=== PATIENT | female | born 1955 | race Caucasian/White ===

== ENCOUNTER 2020-08-03 11:16 | Outpatient (REF) | payer OTHER, MEDICARE, SELFPAY ==
--- NOTE | ~2020-08-03 | MM_ITS ---
EXAMINATION: MM SCREENING DIGITAL BREAST TOMOSYNTHESIS, BILATERAL CLINICAL INFORMATION: Screening. Asymptomatic. The lifetime risk of breast cancer based on the Tyrer-Cuzick Model is 7.1%. COMPARISON: Mammography: March 25, 2019 and studies dating back to June 04, 2011 TECHNIQUE: Digital breast tomosynthesis is performed in both the craniocaudal and mediolateral oblique views along with computer-aided detection (CAD). Synthesized 2D images are generated from the tomosynthesis. FINDINGS: The breasts are almost entirely fatty (ACR BI-RADS breast composition Category a). There are no significant masses, abnormal calcifications, or other abnormalities. MM/MM tomosynthesis screening BI IMPRESSION: There are no significant changes from prior study. ASSESSMENT: BI-RADS 1: Negative RECOMMENDATION: Routine annual mammography screening. This patient's information was entered into a reminder system with a target due date for their next mammogram.
== END 2020-08-03 11:17 | disposition home or self-care (01) ==
LOC: HO.MAMMO 11:16
PROVIDERS: Visit Provider Hospitalist
DX: Z12.31 Encounter for screening mammogram for malignant neoplasm of breast (principal)
CPT/HCPCS: 77063; 77067

== ENCOUNTER 2022-07-10 10:26 | Outpatient (REF) | payer MEDICARE, SELFPAY ==
[2022-07-10 11:37] LABS: Hematocrit 40.9 % (37.0-47.0); Hemoglobin 13.3 g/dl (12.0-16.0); Mean Corpuscular HGB Conc 32.5 g/dl (31.0-35.0); Mean Corpuscular Hemoglobin 31.8 pg (27.0-33.0); Mean Corpuscular Volume 97.8 fL (80.0-98.0); Mean Platelet Volume 10.1 fL (9.4-12.3); Platelet Count 232 X10*3/uL (160-400); Red Blood Count 4.18 X10*6/uL (4.20-5.50); Red Cell Distribution Width 13.8 % (11.0-16.0); White Blood Count 6.3 X10*3/uL (4.8-10.8)
[2022-07-10 12:10] LABS: Alanine Aminotransferase 18 U/L (0-31); Albumin Level 4.1 g/dL (3.5-5.0); Alkaline Phosphatase 125 U/L (39-117); Anion Gap 14 (12-20); Aspartate Amino Transferase 17 U/L (5-31); Bilirubin Total 0.5 mg/dL (0.0-1.0); Blood Urea Nitrogen 12 mg/dL (9-16); Calcium 9.4 mg/dL (8.4-10.2); Carbon Dioxide 27 mmol/L (22-29); Chloride 108 mmol/L (96-108); Cholesterol 245 mg/dL; Estimated Glomerular Filt Rate > 60; Glucose Fasting 112 mg/dL (60-99); HDL Cholesterol 68 mg/dL; LDL Cholesterol Calculated 159 mg/dl; Potassium 4.4 mmol/L (3.3-5.1); Sodium 145 mmol/L (135-145); Total Protein 6.7 g/dL (6.5-8.0); Triglycerides 92 mg/dL
[2022-07-10 12:26] LABS: TSH reflex Free T4 2.02 uIU/mL (0.32-4.0)
[2022-07-10 12:42] LABS: Appearance Urine Clear; Color Urine Yellow; Glucose Urine UA Negative (Negative); Leukocyte Esterase Urine Trace (Negative); Nitrite Urine Negative (Negative); Specific Gravity - Urine 1.015 (1.005-1.025); UMIC TRIGGER UA YES; Urine Blood Negative (Negative); Urine Ketones Negative (Negative); Urine Protein Negative (Neg-Trace)
[2022-07-10 12:45] LABS: Bacteria Urine Trace (None Seen); Hyaline Casts Urine 0-2 /LPF (0-2); RBC Urine 0-2 /HPF (0-2); WBC Urine 0-5 /HPF (0-5)
== END 2022-07-10 10:27 | disposition home or self-care (01) ==
LOC: HO.LAB 10:26
PROVIDERS: PCP Hospitalist; Visit Provider Hospitalist
DX: Z00.00 Encounter for general adult medical examination without abnormal findings (principal)
CPT/HCPCS: 36415; 80053; 80061; 81001; 84443; 85027

== ENCOUNTER → 2022-07-26 09:49 | Outpatient (BNVA) | payer MEDICARE, SELFPAY | PROVIDERS: PCP Hospitalist; Visit Provider Physician Assistant | DX: Z12.11 Encounter for screening for malignant neoplasm of colon (principal) | CPT/HCPCS: 99202 ==

== ENCOUNTER 2022-07-27 10:45 | Outpatient (REF) | payer MEDICARE, SELFPAY ==
--- NOTE | 2022-07-27 11:00 | PFT_ITS ---
Forced vital capacity 70%, FEV1 74%, FEV1/FVC ratio is 80. DVT00-47 73% and MVV is 72%. Post bronchodilator therapy, there is a significant improvement in FEV1 and ANJ17-66. Total lung capacity 80%. Residual volume 82%. Diffusion capacity 65%. There is evidence of mild obstructive airway disorder. There is an excellent response to bronchodilator therapy with complete reversibility. These findings are consistent with bronchial asthma. Clinical correlation is recommended. Star Cleary MD MSB/MODL / [phone]
== END 2022-07-27 10:46 | disposition home or self-care (01) ==
LOC: HO.RESP 10:45
PROVIDERS: PCP Hospitalist; Visit Provider Hospitalist
DX: J45.20 Mild intermittent asthma, uncomplicated (principal)
CPT/HCPCS: 94060; 94727; 94729

== ENCOUNTER 2022-07-31 12:11 | Outpatient (REF) | payer MEDICARE, SELFPAY ==
--- NOTE | ~2022-07-31 | MM_ITS ---
EXAMINATION: MM SCREENING DIGITAL BREAST TOMOSYNTHESIS, BILATERAL CLINICAL INFORMATION: Screening. Asymptomatic. The lifetime risk of breast cancer based on the Tyrer-Cuzick Model is 5%. COMPARISON: Mammography: 08/03/2020, 03/25/2019, outside mammography 01/01/2015 ([place], [place]). TECHNIQUE: Digital breast tomosynthesis is performed in both the craniocaudal and mediolateral oblique views along with computer-aided detection (CAD). Synthesized 2D images are generated from the tomosynthesis. FINDINGS: The breasts are almost entirely fatty (ACR BI-RADS breast composition Category a). Background stromal and fibroglandular densities are similar to prior studies and there is no significant mass or developing density or architectural abnormality. Again, there are scattered bilateral isolated and grouped benign calcifications including benign dermal calcifications. There is a biopsy clip marker again noted posterior 3:00 left breast. The axilla are unremarkable. No significant changes. MM/MM tomosynthesis screening BI IMPRESSION: No mammographic evidence of malignancy. ASSESSMENT: BI-RADS 2: Benign RECOMMENDATION: Routine annual mammography screening. This patient's information was entered into a reminder system with a target due date for their next mammogram.
== END 2022-07-31 12:12 | disposition home or self-care (01) ==
LOC: HO.MAMMO 12:11
PROVIDERS: PCP Hospitalist; Visit Provider Hospitalist
DX: Z12.31 Encounter for screening mammogram for malignant neoplasm of breast (principal)
CPT/HCPCS: 77063; 77067

== ENCOUNTER 2023-01-29 09:01 | Day surgery (SDC) | payer MEDICARE, SELFPAY ==
[2023-01-24 10:21] VITALS: BMI 41.4
--- NOTE | 2023-01-25 13:08 | P.CONAN_ITS ---
Documented by User: Huong Rosa NP 01/25/23 13:09 HPI - Anesthesia Eval Consult details Narrative: 67yo F for Upper Endoscopy and Colonoscopy [facility] Active Problems Active Problems: All Active Problems (Updated 01/24/23 @ 10:20 by Livier Chavira RN) Anxiety and depression (Acute) Asthma, mild intermittent, well-controlled (Acute) Lichen sclerosus et atrophicus of the vulva (Acute) Hx of gout (Acute) Osteoarthritis involving multiple joints on both sides of body (Acute) Normal physical exam (Acute) Colon cancer screening (Acute) Past Medical History Medical History Anxiety and depression Asthma Diet-controlled type 2 diabetes mellitus Gout Osteoarthritis Family History Family History Father Hypertension Colon cancer Prostate cancer Mother No problems noted. Sister Breast cancer Other Mental health disorder Surgical History Surgical History History of cholecystectomy History of gastric surgery History of knee replacement procedure of left knee History of knee replacement procedure of right knee Hx of colonoscopy Social History Social History Household Members Other:: Housing: House Alcohol intake: current Alcohol intake frequency: a few times a month Alcohol type: wine Patient Tobacco Use Status: Former Tobacco user e-Cigarette/Vaping Use: Never Used Second Hand Smoke Exposure: No Are you DNR?: No Advance Directives: No Advance Directives Information Provided: Yes Nutrition Risks: No Nutritional Risk service: No 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: No Hearing needs: No Vision needs: Yes (Glasse) Meds Allergies Allergy/AdvReac Type Severity Reaction Status Date / Time amoxicillin [From AUGMENTIN] Allergy Intermediate HIVES Verified 07/26/22 09:59 cefazolin [From Ancef] Allergy Intermediate SOB Verified 07/26/22 09:59 Wheezing clavulanic acid Allergy Intermediate HIVES Verified 07/26/22 09:59 [From AUGMENTIN] vancomycin Allergy Intermediate SOB, Verified 07/26/22 09:59 wheezing Home Medications Medication Instructions Recorded Confirmed Last Taken Type cetirizine 10 mg tablet 10 mg PO DAILY 07/26/22 01/24/23 Unknown History Exam Exam Date and Time: January 25, 2023 1308 Height,Weight and Vital Signs: Height 5 ft 5 in Weight 112.945 kg Pertinent Lab Results Pertinent Lab Results: Laboratory Tests 07/10/22 07/10/22 10:40 10:40 WBC 6.3 Hgb 13.3 Hct 40.9 Plt Count 232 Sodium 145 Potassium 4.4 Chloride 108 Carbon Dioxide 27 BUN 12 Creatinine 0.80 Assessment and Plan Assessment Anesthesia Assessment: Chart Reviewed Documented by User: Ronda Hensley MD 01/29/23 10:15 PMFSH Active Problems Active Problems: All Active Problems (Updated 01/29/23 @ 10:05 by Ronda Hensley MD) Anxiety and depression (Acute) Asthma, mild intermittent, well-controlled (Acute) Lichen sclerosus et atrophicus of the vulva (Acute) Hx of gout (Acute) Osteoarthritis involving multiple joints on both sides of body (Acute) Normal physical exam (Acute) Colon cancer screening (Acute) Morbid Obesity BMI 41.4 Past Medical History Medical History Anxiety and depression Asthma Diet-controlled type 2 diabetes mellitus Gout Osteoarthritis Family History Family History Father Hypertension Colon cancer Prostate cancer Mother No problems noted. Sister Breast cancer Other Mental health disorder Family history of problems with anesthesia: No Surgical History Surgical History History of cholecystectomy History of gastric surgery History of knee replacement procedure of left knee History of knee replacement procedure of right knee Hx of colonoscopy History of Problems with Anesthesia: No Social History Social History Household Members Other:: Housing: House Alcohol intake: current Alcohol intake frequency: a few times a month Alcohol type: wine Patient Tobacco Use Status: Former Tobacco user e-Cigarette/Vaping Use: Never Used Second Hand Smoke Exposure: No Are you DNR?: No Advance Directives: No Advance Directives Information Provided: Yes Nutrition Risks: No Nutritional Risk service: No 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: No Hearing needs: No Vision needs: Yes (Glasse) Meds Allergies Allergy/AdvReac Type Severity Reaction Status Date / Time amoxicillin [From AUGMENTIN] Allergy Intermediate HIVES Verified 07/26/22 09:59 cefazolin [From Ancef] Allergy Intermediate SOB Verified 07/26/22 09:59 Wheezing clavulanic acid Allergy Intermediate HIVES Verified 07/26/22 09:59 [From AUGMENTIN] vancomycin Allergy Intermediate SOB, Verified 07/26/22 09:59 wheezing Home Medications Medication Instructions Recorded Confirmed Last Taken Type cetirizine 10 mg tablet 10 mg PO DAILY 07/26/22 01/24/23 Unknown History Exam Height,Weight and Vital Signs: Height 5 ft 5 in Weight 112.945 kg Vital Signs Temp Pulse Resp BP Pulse Ox O2 Del Method 01/29/23 09:28 160/52 H 01/29/23 09:17 97 F 66 18 97 Room Air Airway Mallampati Class: II TM Dist: >3cm Neck ROM: Full Loose/Missing/Broken Teeth: No (Permanent bridge intact. Denies broken, loose, missing teeth) Heart: RRR Lungs: CTAB Assessment and Plan Assessment Anesthesia Assessment: Anesthesia Plan Discussed Final Anesthetic Review Family History of Problems with Anesthesia: No History of Problems with Anesthesia: No NPO: Yes ASA Class: III Final Preanesthetic Review: No Changes in Pt Med Stat, Meds/Allgs Chart Reviewed, Consent Obtained/Reviewed and Anes Risks/Benef Reviewed Patient Risk: Intermediate Procedure Risk: Low Assessment/Block/Sedation in SS: Assess/Block/Sedation-SS Anesthetic Plan Anesthetic Plan: MAC: Disposition: Standard PACU
[2023-01-29 09:17] VITALS: PULSE 66; RESP 18; TEMP 36.1; O2SAT 97
[2023-01-29 09:28] VITALS: BP 160/52
[2023-01-29] MEDS: Lactated Ringers 1,000 ML 100 ML IVCONT (09:59)
--- NOTE | 2023-01-29 11:17 | P.OP_ITS ---
Operative Note Operative Note Date of Service: 01/29/23 Narrative: Operative Information Procedure Description: EGD, Colonoscopy Indication: GERD,screening Anesthesia: MAC FLEXIBLE TRANSORAL UPPER GASTROINTESTINAL ENDOSCOPY AND COLONOSCOPY PROCEDURE NOTE UPPER ENDOSCOPY Consent: Indications for the procedure and potential complications of bleeding, perforation, reaction to medications and missed diagnosis were discussed with the patient and informed consent was obtained. Instrument: Olympus GIF H 190 J mid size upper endoscope Monitoring: Vital signs and clinical assessment, continuous EKG monitoring, Pulse oximetry, Carbon Dioxide monitoring and blood pressure monitoring were done throughout the procedure. Procedure: The patient was placed in the left lateral decubitis position and pre-procedure medications were administered and a bite block was placed. The endoscope was inserted into the mouth and advanced under direct vision to the third part of duodenum. A careful inspection was made as the upper endoscope was withdrawn including a retroflexed examination of the proximal stomach; Findings and interventions are described below. Findings: Larynx:normal Esophagus: GE junction at 35 cm, diaphragm hiatus at 35 cm, lax LES, with some esophagitis around GEJ, bx taken from here and distal and proximal esophagus, schatzki ring noted. Stomach: Patchy erythema. Biopsies were obtained. Grade 3 flap valve on retroflexed examination of the cardia. 8-10 mm sessile polyp removed with cold snare. Duodenum: Normal bulb and descending duodenum, Intervention: Biopsies as noted above, snare polypectomy COLONOSCOPY Instrument: Olympus variable stiffness pediatric scope 190L Colonoscopy Monitoring: Vital signs and clinical assessment, continuous EKG monitoring, Pulse oximetry, Carbon Dioxide monitoring and blood pressure monitoring were done throughout the procedure. Colon withdrawal time was 10 minutes. Procedure: The patient was placed in the left lateral decubitis position and pre-procedure medications were administered. After a digital rectal examination of the ano-rectum, the video colonoscope was inserted into the rectum and advanced through the colon to the cecum/TI. The colonoscope was slowly withdrawn in a retrograde panoramic fashion and the colon mucosa was carefully examined including a retroflexed view of the rectum. Findings and interventions are described below. Procedure Difficulty: moderate Findings: Terminal Ileum-not intubated Cecum: 10-11 mm sessile polyp removed with cold snare, x 3 clips applied for hemostasis Ascending Colon: normal Transverse Colon -normal Descending Colon:normal Sigmoid Colon: moderate severe diverticulosis Rectum: Retroflexion with small internal hemorrhoids, grade I Anorectum - normal Colon preparation: Slinger Bowel Preparation Scale Right colon; 2 Transverse colon: 2 Left colon; 2 (0 = Unprepared colon segment with mucosa not seen due to solid stool that cannot be cleared. 1 = Portion of mucosa of the colon segment seen, but other areas of the colon segment not well seen due to staining, residual stool and/or opaque liquid. 2 = Minor amount of residual staining, small fragments of stool and/or opaque liquid, but mucosa of colon segment seen well. 3 = Entire mucosa of colon segment seen well with no residual staining, small fragments of stool or opaque liquid) Impression and Post Procedure Diagnosis: Endoscopy Findings: gastric polyp esophagitis schatzki ring, gastritis Colonoscopy Findings: polyps internal hemorrhoids diverticular disease Plan: Await Pathology results Repeat Colonoscopy in 5 years if adenomatous polyp, 10 years if benign or earlier if clinically indicated High fiber diet leaflet avoid straining at stool, epsom salts and sitz bath, anusol supps or cream Reflux precautions Above findings were reviewed with the patient and relevant handouts were provided if indicated.
[2023-01-29 11:33] VITALS: BP 97/44; PULSE 77; RESP 16; TEMP 36.1; O2SAT 97
[2023-01-29 11:38] VITALS: BP 137/77; PULSE 77; RESP 16; O2SAT 98
[2023-01-29 11:48] VITALS: BP 128/61; PULSE 74; RESP 20; TEMP 36.5; O2SAT 96
== END 2023-01-29 12:14 | disposition home or self-care (01) ==
PROVIDERS: PCP Hospitalist; Visit Provider Internal Medicine Gastroenterology
PROC: (CPT 45385; principal; 2023-01-29 10:40)
DX: Z12.11 Encounter for screening for malignant neoplasm of colon (principal); D12.0 Benign neoplasm of cecum; K57.30 Diverticulosis of large intestine without perforation or abscess without bleeding; K64.0 First degree hemorrhoids; K31.7 Polyp of stomach and duodenum; K22.2 Esophageal obstruction; K29.60 Other gastritis without bleeding; K20.80 Other esophagitis without bleeding; K22.0 Achalasia of cardia; K21.9 Gastro-esophageal reflux disease without esophagitis; E11.9 Type 2 diabetes mellitus without complications; Z90.49 Acquired absence of other specified parts of digestive tract; Z98.84 Bariatric surgery status; Z87.891 Personal history of nicotine dependence; Z79.899 Other long term (current) drug therapy
CPT/HCPCS: 45385; 43251; 43239; 88305; 88342; J2250

== ENCOUNTER → 2023-01-29 09:01 | Outpatient (BNV) | payer MEDICARE, SELFPAY | PROVIDERS: PCP Hospitalist; Visit Provider Internal Medicine Gastroenterology | DX: Z12.11 Encounter for screening for malignant neoplasm of colon (principal); K31.7 Polyp of stomach and duodenum; K20.90 Esophagitis, unspecified without bleeding; K29.70 Gastritis, unspecified, without bleeding; D12.0 Benign neoplasm of cecum; K57.30 Diverticulosis of large intestine without perforation or abscess without bleeding; K64.8 Other hemorrhoids | CPT/HCPCS: 43239; 43251; 45385 ==

== ENCOUNTER 2023-02-13 08:47 | Outpatient (AMB) | payer MEDICARE, SELFPAY ==
--- NOTE | 2023-02-13 08:52 | A.OFFVIS_ITS ---
Intake Vital Signs 02/13/23 08:55 Height 5 ft 5 in Weight 243 lb BMI 40.4 BP 168/90 H Blood Pressure Location Lt brachial Position Sitting Pulse 75 Intake Visit Reasons: S/p egd/colon- Lane Intake Note: Patient follow up for Colonoscopy/EGD results. Patient denies any GI issues. Client Technologies Analyst Required: No Accompanied by: Self / Same As Patient Allergies amoxicillin [From AUGMENTIN] Allergy (Intermediate, Verified 02/13/23 08:51) HIVES cefazolin [From Ancef] Allergy (Intermediate, Verified 02/13/23 08:51) SOB Wheezing clavulanic acid [From AUGMENTIN] Allergy (Intermediate, Verified 02/13/23 08:51) HIVES vancomycin Allergy (Intermediate, Verified 02/13/23 08:51) SOB, wheezing Medication List - Last Reconciled 02/13/23 by DANTE StewartC albuterol sulfate 90 mcg/actuation 1 puff inhalation Q4H PRN allopurinol 300 mg PO DAILY bupropion HCl 300 mg PO QAM cetirizine 10 mg PO DAILY cholecalciferol (vitamin D3) 125 mcg PO DAILY 3 months coQ10 (ubiquinol) 200 mg PO DAILY 3 months escitalopram oxalate 20 mg PO DAILY ferrous fumarate 89 mg PO TID 3 months multivitamin (Daily Multi-Vitamin tablet) 1 tab PO DAILY 3 months vitamin G56-[id number] acid 1,000-400 mcg daily sublingual daily; 1 month HPI HPI Comments History of Present Illness Details A 67 y/o F f/u after EGD and colonoscopy with polypectomy and bx Reviewed procedure report, pathology,- recommendations Reflux not well controlled until she began prevacid 30 ( her wifes)- good response No other GI issues PFSH Medical History (Updated 02/13/23 @ 09:47 by Oliva Pedraza PA-C) Gout Anxiety and depression Asthma Osteoarthritis Diet-controlled type 2 diabetes mellitus Surgical History History of esophagogastroduodenoscopy (EGD) Hx of colonoscopy History of knee replacement procedure of right knee History of knee replacement procedure of left knee History of gastric surgery History of cholecystectomy Family History Father Hypertension Colon cancer Prostate cancer Mother No problems noted. 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: No Hearing needs: No Vision needs: Yes (Jeremias) Review of Systems Const All systems reviewed & are unremarkable except as noted in HPI and below Card Denies chest pain and Denies dyspnea Resp Denies dyspnea GI Denies abdominal pain, Denies heartburn, Denies nausea and Denies vomiting Physical Exam Vital Signs: Last Vital Signs Pulse 75 02/13/23 08:55 BP 168/90 H 02/13/23 08:55 BMI result Body Mass Index 40.4 Const General: cooperative, comfortable and no acute distress Orientation/consciousness: patient oriented x3 Limitations: no limitations Resp Effort & Inspection: normal respiratory effort and able to speak in complete sentences Skin General skin exam: no rashes or lesions noted Neuro General: patient oriented x3 Extrem General: Yes full ROM Psych Appearance: grossly normal and well kempt Mental Status: mental status grossly normal Speech and movement: Normal speech and movement present and Clear speech present Affect: normal affect Attitude: cooperative Thought process: Normal thought process present Thought content: Normal thought content present Results Reviewed Results Reviewed: Impression and Post Procedure Diagnosis: Endoscopy Findings: gastric polyp esophagitis schatzki ring, gastritis Colonoscopy Findings: polyps internal hemorrhoids diverticular disease Plan: Await Pathology results Repeat Colonoscopy in 5 years if adenomatous polyp, 10 years if benign or earlier if clinically indicated High fiber diet leaflet avoid straining at stool, epsom salts and sitz bath, anusol supps or cream Reflux precautions Above findings were reviewed with the patient and relevant handouts were provided if indicated. Name: SpringfieldAnna Age/Sex: 67/F Attending: Eliza Lane MD : 1955 Submitted by: Eliza Lane MD Copies to: Teresa Saucedo AUT[employer]BI[employer]SEMBL[employer] SUPERVISOR MR #: [id number] Status: [facility] Collected: 01/29/23 Location: [facility] Received: 01/29/23 Diagnosis A. Stomach, biopsy: Antral-type the mucosa with mild chronic inactive inflammation; no Helicobacter organisms seen. B. Stomach, polyps: - Hyperplastic mucosal polyps with background chronic active/erosive inflammation and focal intestinal metaplasia; negative for dysplasia; no Helicobacter organisms seen. - Small fragment of squamocolumnar mucosa with mild reactive changes. C. GE junction, biopsy: - Cardiac-type mucosa with moderate chronic inactive inflammation and intestinal metaplasia; negative for dysplasia. - Squamous epithelium within normal limits. D. Esophagus, distal, biopsy: Squamous epithelium with reactive changes; oth erwise within normal limits. E. Esophagus, proximal, biopsy: Squamous epithelium within normal limits; no inflammation seen. F. Cecum, polypectomies: - Tubular adenoma; negative for high-grade dysplasia or carcinoma. - Colonic mucosa with mild surface hyperplastic changes. COMMENT: The findings in part C are consistent with Jacobs esophagus if sampled from the tubular esophagus. Clinical History Pre-Op Dx: Screening, GERD Post-Op Dx: Gastritis, Schatzki's ring, incompetent LES, gastric polyps, colon polyps, diverticulosis, hemorrhoids Microscopic Description A-F. Microscopic sections reviewed. Immunostain for H. pylori is non-reactive (A and B). Material Received A. Bx stomach B. Gastric polyps C. Bx GE junction Patient: Anna Swan Age/Sex: 67/F MR#: [id number] Page 1 of 3 pls tell pt; 1/ adenoma removed from colon, rept colo 5 yrs 2/ polyps from stomach, need to check h pylori breath test, stop PPI for 2 weeks, then restart after test, can use carafate meantime, will need repeat EGD in 6-12 months Assessment & Plan Assessment & Plan (1) Tubular adenoma of colon: Code(s): D12.6 - Benign neoplasm of colon, unspecified Plan: colonoscopy recall 5 years-2027 (2) Diverticulosis of colon: Code(s): K57.30 - Diverticulosis of large intestine without perforation or abscess without bleeding Plan: HFD ER protocol (3) Hemorrhoids: Code(s): K64.9 - Unspecified hemorrhoids Plan: HFD avoid straining (4) Jacobs's 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: Comment: hold ppi x 2 weeks- carafate HPUBT 2 weeks- if positive will treat EGD 6-12 weeks Code(s): K22.70 - Jacobs's esophagus without dysplasia Plan: HP UBT- if positive tx Orders: Orders H Pylori Breath Test 2 Weeks A04.8 - Other specified bacterial intestinal infections EDG - GI Use Only 6 Months K22.70 - Jacobs's esophagus without dysplasia Medications: New lansoprazole (Prevacid) 30 mg PO DAILY 30 days 30 caps 11RF sucralfate 1 g PO QIDACHS 21 days 90 tabs 0RF Patient Instructions: colonoscopy recall 5 years-2027 hold ppi x 2 weeks- carafate HPUBT 2 weeks- reviewed NPO 1 hr before-no anti bx/ ppi in interim May begin lansoprazole 30 mg as prescribed EGD repeat 6-12 months Call with progress/ concerns Coding Level of Care Code Est Pt Level 3 (67674) Diagnoses Tubular adenoma of colon D12.6 Diverticulosis of colon K57.30 Hemorrhoids K64.9 Jacobs's 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 K22.70 Time Spent (min) 30
[2023-02-13 08:55] VITALS: BP 168/90; PULSE 75; BMI 40.4
== END 2023-02-13 09:25 | disposition home or self-care (01) ==
PROVIDERS: PCP Hospitalist; Visit Provider Physician Assistant
DX: D12.6 Benign neoplasm of colon, unspecified (principal); K57.30 Diverticulosis of large intestine without perforation or abscess without bleeding; K64.9 Unspecified hemorrhoids; K22.70 Barrett's esophagus without dysplasia
CPT/HCPCS: 99213

== ENCOUNTER → 2023-02-13 08:47 | Outpatient (BNVA) | payer MEDICARE, SELFPAY | PROVIDERS: PCP Hospitalist; Visit Provider Physician Assistant | DX: K22.70 Barrett's esophagus without dysplasia (principal); K57.30 Diverticulosis of large intestine without perforation or abscess without bleeding; K64.9 Unspecified hemorrhoids; D12.6 Benign neoplasm of colon, unspecified | CPT/HCPCS: 99212 ==

== ENCOUNTER 2023-02-28 | Outpatient (REF) | payer MEDICARE, SELFPAY | END 2023-02-28 00:01 | disposition home or self-care (01) | LOC: HO.LNP | PROVIDERS: Visit Provider Physician Assistant | DX: Z11.0 Encounter for screening for intestinal infectious diseases (principal) | CPT/HCPCS: 83013 ==

== ENCOUNTER → 2023-02-28 08:53 | Outpatient (BNVA) | payer MEDICARE, SELFPAY | PROVIDERS: PCP Hospitalist; Visit Provider Physician Assistant | DX: Z11.0 Encounter for screening for intestinal infectious diseases (principal) | CPT/HCPCS: 99211 ==

== ENCOUNTER 2023-03-01 13:56 | Outpatient (REF) | payer MEDICARE, SELFPAY | END 2023-03-01 13:57 | disposition home or self-care (01) | LOC: HO.LNP 13:56 | PROVIDERS: Visit Provider Physician Assistant | DX: Z13.89 Encounter for screening for other disorder (principal) | CPT/HCPCS: 83013 ==

== ENCOUNTER 2023-07-02 15:19 | Outpatient (AMB) | payer MEDICARE, SELFPAY ==
--- NOTE | 2023-07-02 15:23 | MHC.PC.OV ---
Vital Signs 07/02/23 15:29 Height 5 ft 5 in Weight 253 lb BMI 42.1 BP 140/74 H Blood Pressure Location Lt brachial Position Sitting Pulse 73 Pulse Source Pulse Oximeter Pulse Oximetry (%) 97 Oxygen Delivery Method Room Air Intake Visit Reasons: transfer from [facility], continuation of care Intake Note: Patient is here for transfer of care from .. Patient is here to follow up on asthma . General House Worker Required: No Hostel Parent: Not Required per policy Accompanied by: Self / Same As Patient Allergies amoxicillin [From AUGMENTIN] Allergy (Intermediate, Verified 07/02/23 15:45) HIVES cefazolin [From Ancef] Allergy (Intermediate, Verified 07/02/23 15:45) SOB Wheezing clavulanic acid [From AUGMENTIN] Allergy (Intermediate, Verified 07/02/23 15:45) HIVES vancomycin Allergy (Intermediate, Verified 07/02/23 15:45) SOB, wheezing Medication List - Last Reconciled 07/02/23 by Kanwal Marcos, LEODAN- albuterol sulfate 90 mcg/actuation 1 puff inhalation Q4H PRN allopurinol 300 mg PO DAILY bupropion HCl 300 mg PO QAM cetirizine 10 mg PO DAILY cholecalciferol (vitamin D3) 125 mcg PO DAILY 3 months coQ10 (ubiquinol) 200 mg PO DAILY 3 months escitalopram oxalate 20 mg PO DAILY ferrous fumarate 89 mg PO TID 3 months lansoprazole (Prevacid) 30 mg PO DAILY 30 days multivitamin (Daily Multi-Vitamin tablet) 1 tab PO DAILY 3 months vitamin B67-qpuxo acid 1,000-400 mcg daily sublingual daily; 1 month Tobacco use date assessed: 07/02/23 Fall risk assessment: 2 + Falls in past year Last assessed Fall Risk: 07/02/23 Dental Screening Dental Screen Date: 07/02/23 Did you have a dental visit in the last 12 months?: Yes Did you have a dental problem in the last 6 months where you did not have access to dental care?: No Was dental information given to patient?: Patient has dentist HPI HPI Comments History of Present Illness Details 67-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, 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 [employer], with gout, anxiety, depression, asthma, osteoarthritis, diabetes type 2, diverticulosis, Jacobs's esophagus, hyperlipidemia, lichen sclerosis Status post bilat knee replacement, gastric surgery, cholecystectomy Health maintenance Colonoscopy 2023 with tubular adenoma repeat in 5 years (2027) EGD January of 2023 repeat in 6-12 months Mammogram July of 2022 within normal limits Vaccines: UTD on Flu, COVID, RSV DEXA: declined today after discussion Specialists GI visit Q 6 months CRYSTAL[facility] OPER[facility] at [facility] last pap a few years ago, has Lichen sclerosis Optho - last eye 5 years ago. s/p cataract extraction bilat. Will schedule exam. Aware of need for DME Exam Here today to f/u on chronic conditions only using JUSTIN a few times per month. Correlates when forgetting to take allergy medications. Not on daily maintenance. Due for PCV vaccine Will get at local [facility] DM2 - was on Metformin in the past. Off s/p wt loss. Admits diarrhea w/ Metformin. Admits eating healthy. No surgeries in the last year no hospital or ED visits. 3 falls in the last year - mechanical one time tripped over something in garage, other 2 uneven surface did have head strike x 2 w/o LOC. No medical treatment. Can correlate with being tired. Family Med Hx: No change PFSH Medical History Gout Anxiety and depression Asthma Osteoarthritis Diet-controlled type 2 diabetes mellitus Surgical History History of esophagogastroduodenoscopy (EGD) Hx of colonoscopy History of knee replacement procedure of right knee History of knee replacement procedure of left knee History of gastric surgery History of cholecystectomy Family History Father Hypertension Colon cancer Prostate cancer Mother No problems noted. 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 1. Little interest or pleasure in doing things: not at all 2. Feeling down, depressed, or hopeless: several days (on medication) 3. Trouble falling or staying asleep, or sleeping too much: not at all 4. Feeling tired or having little energy: not at all 5. Poor appetite or overeating: not at all 6. Feeling bad about yourself - or that you are a failure or have let yourself or your family down: not at all 7. Trouble concentrating on things, such as reading the newspaper or watching television: not at all 8. Moving or speaking so slowly that other people could have noticed. Or the opposite - being so fidgety or restless that you have been moving around a lot more than usual: not at all 9. Thoughts that you would be better off or of hurting yourself in some way: not at all Total score: 1 Depression Screening Interpretation: Negative Depression Screening Done: Yes 83018 - PHQ-9 Billing: Yes Source: Developed by Drs. Ari Steen, Wendy Bashir, Ananda Bedolla and colleagues, with an educational derek from [email or web address]. Thrive Questionnaire Date Thrive assessed: 07/02/23 I am a: Patient What is your living situation today?: I have a steady place to live Within the past 12 months, did the food you bought not last and you didn't have the money to get more?: Never true Within the past 12 months, did you worry whether your food would run out before you got money to buy more?: Never true Do you have trouble paying for medicines?: No Do you have trouble getting transportation to medical appointments?: No Do you have trouble paying your heating and electricity bill?: No Do you have trouble taking care of your child, family member or friend?: No Do you have trouble with day-to-day activities such as bathing, preparing meals, shopping, managing finances, etc.?: No Are you currently unemployed and looking for a job?: No Are you interested in more education?: No Currently or been in a relationship where the following occur: no concerns reported THRIVE Score: 0 AUDIT C Alcohol Use Questionnaire (AUDIT-C) 1. How often do you have a drink containing alcohol?: 2-4 times a month 2. How many drinks containing alcohol do you have on a typical day when you are drinking?: 1 or 2 Total Score: 2 Score Reviewed/Action Taken: Yes EMANI-7 AMB Questionnaire EMANI-7 Date EMANI - 7 assessed: 07/02/23 Feeling nervous, anxious, or on edge: 0 = Not at all Not being able to stop or control worryin = Not at all Worrying too much about different things: 0 = Not at all Trouble relaxin = Not at all Being so restless that it is hard to sit still: 0 = Not at all Becoming easily annoyed or irritable: 0 = Not at all Feeling afraid as if something awful might happen: 0 = Not at all Total EMANI-7 score (0-4 normal; 5-9 mild; 10-14 moderate; 15-21 severe): 0 Source: Developed by Drs. Ari Steen, Wendy Bashir, Ananda Bedolla and colleagues, with an educational derek from [email or web address]. EMANI-7 Assessment Billing EMANI-7 Assessment Tool: EMANI-7 Assessment 76175 Review of Systems Const All systems reviewed & are unremarkable except as noted in HPI and below Physical exam (Primary Care) Vital Signs: Last Vital Signs Pulse 73 07/02/23 15:29 BP 140/74 H 07/02/23 15:29 Pulse Ox 97 07/02/23 15:29 Oxygen Delivery Method Room Air 07/02/23 15:29 BMI result Body Mass Index 42.1 BMI Assessment/Plan discussion: High Tobacco/Smoking Status: Tobacco use Status Tobacco use date assessed 07/02/23 07/02/23 15:39 Patient Tobacco Use Status Former Tobacco user 07/02/23 15:28 e-Cigarette/Vaping Use Never Used 07/02/23 15:28 PHQ-9: PHQ-9 Score PHQ-9: Total score 1 07/02/23 15:51 Depression Screening Interpretation: Negative Thrive Assessment: Date of Thrive Assessment Date Thrive assessed 07/02/23 07/02/23 15:28 Currently or been in a relationship where the following occur: no concerns reported Advance Care Planning discussion: Completed/Scanned Date of discussion: 07/02/23 Who was present: Self Forms completed: Health Care Proxy (Has HCP at home, will bring a copy or send via portal) and MOLST Time spent: 16-45 minutes Actual minutes spent: 17 Did not discuss due to Cultural/Spiritual beliefs: Yes Const Other: Awake alert NAD Scleras nonicteric Carotid bruit bilat 2/6 systolic murmur, RSB, Regular Rate and Rythym LS CTAB Nonpitting edema BLE, varicosities, pedal pulses WNL bilat, skin intact, Normal monofilament bilat, abnormal vibratory sensations bilat Office Procedures Diabetic Foot Exam G9226 - Diabetic Foot Exam Assessment and Plan Assessment & Plan (1) Asthma, mild intermittent, well-controlled: Code(s): J45.20 - Mild intermittent asthma, uncomplicated (2) Hyperlipidemia associated with type 2 diabetes mellitus: Code(s): E11.69 - Type 2 diabetes mellitus with other specified complication; E78.5 - Hyperlipidemia, unspecified (3) Jacobs's 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: Comment: Managed by [facility], on prevacid Code(s): K22.70 - Jacobs's esophagus without dysplasia (4) Gout: Comment: on allopurinol for years; discussed tapering off; not interested at this time. Code(s): M10.9 - Gout, unspecified Qualifiers: Gout site: foot Encounter type: sequela Chronicity: chronic Laterality: unspecified laterality Presence of tophus: without tophus (5) Diverticulosis of colon: Comment: managed by GI Code(s): K57.30 - Diverticulosis of large intestine without perforation or abscess without bleeding (6) S/P gastric surgery: Comment: on b12, Iron and Vitamin D. Check b12 level Code(s): Z98.890 - Other specified postprocedural states (7) Bilateral carotid bruits: Comment: Check carotid US and Lipids Code(s): R09.89 - Other specified symptoms and signs involving the circulatory and respiratory systems (8) Cardiac murmur, previously undiagnosed: Comment: Check Echo Code(s): R01.1 - Cardiac murmur, unspecified (9) Diabetes mellitus type 2 with complications: Comment: Hga1c ordered on lab draw; declined in office POC Diet controlled DME exam - due will schedule Not on ACEI or statin Code(s): E11.8 - Type 2 diabetes mellitus with unspecified complications (10) Neuropathy: Comment: ? related to DM or gastric surgery, will check b12 levels & a1c. Fall risk edu provided Code(s): G62.9 - Polyneuropathy, unspecified (11) MDD (major depressive disorder): Code(s): F32.9 - Major depressive disorder, single episode, unspecified Qualifiers: Major depression recurrence: recurrent Active/Remission status: currently active Major depression episode severity: mild Qualified Code(s): F33.0 - Major depressive disorder, recurrent, mild (12) Anxiety: Code(s): F41.9 - Anxiety disorder, unspecified (13) ACP (advance care planning): Comment: MOLST completed today. DNR/DNI. Allow natural . Has HCP. Will bring in. Code(s): Z71.89 - Other specified counseling (14) Diabetes type 2 with atherosclerosis of arteries of extremities: Code(s): E11.51 - Type 2 diabetes mellitus with diabetic peripheral angiopathy without gangrene; I70.209 - Unspecified atherosclerosis of [place] arteries of extremities, unspecified extremity Plan: Total time spent caring for the patient today was 70 minutes. This includes time spent before the visit reviewing the chart, time spent during the visit, and time spent after the visit on documentation This note is constructed using voice recognition software. While every effort has been made to ensure accuracy in voice professor, still errors may have been included Sometimes, these errors may affect the content or meaning of the given sentence . Return to office in 5 months 30 minute to f/u on chronic dz mgmt Orders: Orders Microalbumin, Random (w Creat) Today E11.69 - Type 2 diabetes mellitus with other specified complication, E78.5 - Hyperlipidemia, unspecified, J45.20 - Mild intermittent asthma, uncomplicated, K22.70 - Jacobs's esophagus without dysplasia, M10.9 - Gout, unspecified Complete Blood Count no Diff Today K22.70 - Jacobs's esophagus without dysplasia, Z98.890 - Other specified postprocedural states Vitamin B12 and Folate Today K22.70 - Jacobs's esophagus without dysplasia, Z98.890 - Other specified postprocedural states CA echo transthoracic complete Today R01.1 - Cardiac murmur, unspecified, R09.89 - Other specified symptoms and signs involving the circulatory and respiratory systems US carotid duplex BI Today R01.1 - Cardiac murmur, unspecified, R09.89 - Other specified symptoms and signs involving the circulatory and respiratory systems AMB Diabetic Foot Exam Today E11.8 - Type 2 diabetes mellitus with unspecified complications Comprehensive [place]. Panel Fast Today E11.69 - Type 2 diabetes mellitus with other specified complication, E78.5 - Hyperlipidemia, unspecified, J45.20 - Mild intermittent asthma, uncomplicated, K22.70 - Jacobs's esophagus without dysplasia, M10.9 - Gout, unspecified Lipid Panel Today E11.69 - Type 2 diabetes mellitus with other specified complication, E78.5 - Hyperlipidemia, unspecified, J45.20 - Mild intermittent asthma, uncomplicated, K22.70 - Jacobs's esophagus without dysplasia, M10.9 - Gout, unspecified TSH reflex Free T4 Today E11.69 - Type 2 diabetes mellitus with other specified complication, E78.5 - Hyperlipidemia, unspecified, J45.20 - Mild intermittent asthma, uncomplicated, K22.70 - Jacobs's esophagus without dysplasia, M10.9 - Gout, unspecified Vitamin D 1,25 dihydroxy Today E11.69 - Type 2 diabetes mellitus with other specified complication, E78.5 - Hyperlipidemia, unspecified, J45.20 - Mild intermittent asthma, uncomplicated, K22.70 - Jacobs's esophagus without dysplasia, M10.9 - Gout, unspecified IRON PROFILE Today K22.70 - Jacobs's esophagus without dysplasia, Z98.890 - Other specified postprocedural states Hemoglobin A1c Today E11.8 - Type 2 diabetes mellitus with unspecified complications Medications: Refilled albuterol sulfate 90 mcg/actuation 1 puff inhalation Q4H PRN 8.5 grams 3RF shortness of breath or wheezing J45.20 - Mild intermittent asthma, uncomplicated Coding Level of Care Code Est Pt Level 5 (02195) Diagnoses Asthma, mild intermittent, well-controlled J45.20 Hyperlipidemia associated with type 2 diabetes mellitus E11.69; E78.5 Jacobs's 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 K22.70 Gout M10.9 Gout site: foot Encounter type: sequela Chronicity: chronic Laterality: unspecified laterality Presence of tophus: without tophus Diverticulosis of colon K57.30 S/P gastric surgery Z98.890 Bilateral carotid bruits R09.89 Cardiac murmur, previously undiagnosed R01.1 Diabetes mellitus type 2 with complications E11.8 Neuropathy G62.9 Mild episode of recurrent major depressive disorder F33.0 Major depression recurrence: recurrent Active/Remission status: currently active Major depression episode severity: mild Anxiety F41.9 ACP (advance care planning) Z71.89 Diabetes type 2 with atherosclerosis of arteries of extremities E11.51; I70.209 CPT Codes Diabetic Foot Exam - CPT: G9226 - Diabetic Foot Exam ([id number]) Additional Codes EMANI-7 Assessment Billing - EMANI-7 Assessment Tool: EMANI-7 Assessment 83925 ([id number]) Vital Signs *Quality* - Advance Care Planning discussion: Completed/Scanned ([id number]) Vital Signs *Quality* - Time spent: 16-45 minutes ([id number]) Vital Signs *Quality* - Did not discuss due to Cultural/Spiritual beliefs: Yes ([id number])
[2023-07-02 15:29] VITALS: BP 140/74; PULSE 73; O2SAT 97; BMI 42.1
== END 2023-07-02 16:40 | disposition home or self-care (01) ==
PROVIDERS: PCP Hospitalist; Visit Provider Nurse Practitioner Family
DX: Z00.00 Encounter for general adult medical examination without abnormal findings (principal)
CPT/HCPCS: 1123F; 1124F; 99215; 99497; G9226

== ENCOUNTER 2023-07-05 09:54 | Outpatient (REF) | payer MEDICARE, SELFPAY ==
[2023-07-05 11:10] LABS: Hematocrit 41.2 % (37.0-47.0); Hemoglobin 13.3 g/dl (12.0-16.0); Mean Corpuscular HGB Conc 32.3 g/dl (31.0-35.0); Mean Corpuscular Hemoglobin 31.9 pg (27.0-33.0); Mean Corpuscular Volume 98.8 fL (80.0-98.0); Mean Platelet Volume 10.4 fL (9.4-12.3); Platelet Count 222 X10*3/uL (160-400); Red Blood Count 4.17 X10*6/uL (4.20-5.50); Red Cell Distribution Width 13.6 % (11.0-16.0); White Blood Count 6.6 X10*3/uL (4.8-10.8)
[2023-07-05 11:29] LABS: Estimated Average Glucose 117 mg/dL; Hemoglobin A1c % 5.7 % (<6.0)
[2023-07-05 11:33] LABS: Creatinine Urine 72.26 mg/dL; Microalbum/Creatinine Ratio Ur 12.4 ug/mg cr (<30)
[2023-07-05 11:41] LABS: Alanine Aminotransferase 17 U/L (0-31); Albumin Level 4.1 g/dL (3.5-5.0); Alkaline Phosphatase 111 U/L (39-117); Anion Gap 12 (12-20); Aspartate Amino Transferase 19 U/L (5-31); Bilirubin Total 0.5 mg/dL (0.0-1.0); Blood Urea Nitrogen 11 mg/dL (9-16); Calcium 9.8 mg/dL (8.4-10.2); Carbon Dioxide 26 mmol/L (22-29); Chloride 107 mmol/L (96-108); Cholesterol 228 mg/dL (<200); Estimated Glomerular Filt Rate > 60; Glucose Fasting 121 mg/dL (60-99); HDL Cholesterol 68 mg/dL (>40); Iron 78 mcg/dL (30-160); LDL Cholesterol Calculated 138 mg/dL (<100); Percent Iron Saturation 27 % (15-50); Potassium 3.8 mmol/L (3.3-5.1); Sodium 141 mmol/L (135-145); Total Iron Binding Capacity 292 mcg/dL (228-428); Total Protein 7.2 g/dL (6.5-8.0); Triglycerides 113 mg/dL (<150); Unsaturated Iron Binding 214 ug/dL
[2023-07-05 12:03] LABS: TSH reflex Free T4 1.44 uIU/mL (0.32-4.0)
[2023-07-05 12:13] LABS: Folate 13.6 ng/mL (> or = 4.0); Vitamin B12 354 pg/mL (200-900)
[2023-07-10 01:48] LABS: VITAMIN D (1,25 OH) D3 22 pg/mL; Vit D (1,25-Dihydroxy) Total 22 pg/mL (18-72); Vitamin D (1,25 OH) D2 <8 pg/mL
== END 2023-07-05 09:55 | disposition home or self-care (01) ==
LOC: HO.LAB 09:54
PROVIDERS: Visit Provider Nurse Practitioner Family
DX: K22.70 Barrett's esophagus without dysplasia (principal); M10.9 Gout, unspecified; E11.69 Type 2 diabetes mellitus with other specified complication; E78.5 Hyperlipidemia, unspecified; J45.20 Mild intermittent asthma, uncomplicated; E11.8 Type 2 diabetes mellitus with unspecified complications; Z98.890 Other specified postprocedural states
CPT/HCPCS: 36415; 80053; 80061; 82043; 82570; 82607; 82652; 82746; 83036; 83540; 84443; 85027

== ENCOUNTER 2023-07-23 13:55 | Outpatient (REF) | payer MEDICARE, SELFPAY ==
--- NOTE | ~2023-07-23 | US_ITS ---
EXAMINATION: US EXTRACRANIAL CAROTID DUPLEX, BILATERAL CLINICAL INFORMATION: Bilateral carotid bruits. COMPARISON: None available. TECHNIQUE: Real-time ultrasound and Doppler techniques (integrating B-mode 2-D vascular images, Doppler spectral analysis and color-flow Doppler imaging) were utilized to interrogate the extracranial carotid arteries, the vertebral arteries and proximal subclavian arteries bilaterally. The degree of stenosis is determined by criteria similar to NASCET. FINDINGS: Right Side: 1. There is minimal atherosclerotic plaque seen in the bifurcation/proximal ICA region. 2. The common carotid artery PSV proximally is 82 cm/s and distally 70 cm/s. 3. The proximal internal carotid artery velocities are 48 cm/s systolic and 12 cm/s diastolic. 4. The proximal external carotid artery PSV is 90 cm/s. 5. The vertebral artery shows antegrade flow. 6. The subclavian artery waveforms are normal. Left Side: 1. There is no atherosclerotic plaque seen in the bifurcation/proximal ICA region. 2. The common carotid artery PSV proximally is 105 cm/s and distally 85 cm/s. 3. The proximal internal carotid artery velocities are 55 cm/s systolic and 15 cm/s diastolic. 4. The proximal external carotid artery PSV is 100 cm/s. 5. The vertebral artery shows antegrade flow. 6. The subclavian artery waveforms are normal. US/US carotid duplex BI IMPRESSION: 1. RIGHT: Minimal, non-hemodynamically significant stenosis of the proximal right internal carotid artery corresponding to a 0-49% stenosis by velocity criteria. 2. LEFT: Normal left internal carotid artery without atherosclerotic plaque or hemodynamically significant stenosis.
== END 2023-07-23 13:56 | disposition home or self-care (01) ==
LOC: HO.US 13:55
PROVIDERS: PCP Hospitalist; Visit Provider Nurse Practitioner Family
DX: R01.1 Cardiac murmur, unspecified (principal); R09.89 Other specified symptoms and signs involving the circulatory and respiratory systems
CPT/HCPCS: 93880

== ENCOUNTER → 2023-07-30 14:04 | Outpatient (REF) | payer MEDICARE, SELFPAY ==
--- NOTE | 2023-07-30 14:06 | CA_ITS ---
Transthoracic Echocardiogram Patient (Last, First, Middle): Anna Swan C Gender: Female Date of : 1955 Age: 67 Procedure Date: 07/30/2023 Procedure Type: Transthoracic Echocardiogram Location: OP Height: 165.1 cm Weight: 111.59 kg BSA: 2.16 m2 Heart Rate: bpm BP: 134 / 82 mmHg Community Support Professional: Referring MD: Kanwal Marcos [facility] Symptoms: R01.1 - Cardiac murmur, unspecified Study Quality: Good ECG Rhythm: Sinus Conclusions: - The left ventricular systolic function is normal. The calculated ejection fraction is 58% by biplane method. - There is moderate posterior mitral annular calcification. Findings Left Ventricle Normal left ventricular cavity size. There is mildly increased left ventricular wall thickness. The left ventricular systolic function is normal. The calculated ejection fraction is 58% by biplane method. There is no evidence of regional wall motion abnormalities. Evidence suggests grade I (mild) diastolic dysfunction. LV peak GLS -20.3%, normal. Right Ventricle Normal right ventricular cavity size and systolic function. Atria The left atrium is mildly dilated. The right atrium is normal in size. Aortic Valve There is a normal trileaflet aortic valve. There is no aortic valve stenosis. There is no aortic valve regurgitation. Mitral Valve There is moderate posterior mitral annular calcification. There is trace mitral valve regurgitation. There is no mitral valve stenosis. Pulmonic Valve The pulmonic valve is likely normal. Tricuspid Valve There is trace tricuspid valve regurgitation. There is no evidence of pulmonary hypertension. Great Vessels The asc aorta is normal in size. Venous The inferior vena cava is normal in size and collapses greater than 50% with inspiration. Pericardium/Pleural There is no evidence of pericardial effusion. Prior Study Comparison No prior study available for comparison. Measurements 2D Linear Measurements IVSd: 1.11 0.6-0.9/0.6-1.0 cm LVIDd: 4.87 3.9-5.3/4.2-5.9 cm LVIDd Index: 2.25 2.4-3.2/2.2-3.1 cm/m2 LVIDs: 3.21 2.0-3.6 cm LVPWd: 1.11 0.7-1.1 cm Ao Root: 3.20 2.1-3.5 cm LA Diam: 4.00 2.7-3.8/3.0-4.0 cm LAIDs Index: 1.85 1.5-2.3 cm/m2 LV Mass: 250.54 67-162/88-224 g LV Mass Index: 115.99 43-95/49-115 g/m2 LVOT Diam: 2.30 3.0+(-)1.3 cm 2D Systolic Function EF 4C: 56.40 >55% EF 2C: 59.40 >55% EF BiP: 58.20 >55% Mitral Valve MV Pk E: 0.73 MV PK A: 0.97 MV Decel Time: 269.00 E/A: 0.80 E'Lateral: 4.79 E'Medial: 6.09 E/E' Med: 12.00 E/E' Lat: 15.30 PHT: 79.00 MVA PHT: 2.78 Decel [place]: 2.73 Aortic Valve AoV Pk Abel: 1.57 AoV Mn Abel: 0.98 AoV VTI: 0.39 AoV Pk Grad: 10.00 Aov Mn Grad: 5.00 NABIL Cont.VTI: 3.08 LVOT LVOT Pk Abel: 1.23 LVOT Mn Abel: 0.72 LVOT VTI: 0.29 LVOT Pk Grad: 6.00 LVOT Mn Grad: 3.00 LVOT Diam: 2.30 LVOT Area: 4.15 Diastolic Function MV Pk E: 0.73 MV Pk A: 0.97 E/A: 0.80 E'Medial: 6.09 E/E' Med: 12.00 E' Laterial: 4.79 E/E' Lat: 15.30 Right Ventricle TAPSE (mm): 25.00 Tricuspid Valve TR Pk Abel: 2.13 TR Pk Grad: 18.00 RA Press: 3.00 RVSP: 21.00 Great Vessels Aorta Ao Root-2D: 3.20 2.0-3.7 cm Ao Asc: 3.40 2.1-3.4 cm Pulmonary Valve PV Pk Abel: 1.01 Peak PV Grad: 4.00 Updated in Other Vendor System with Status of Final Glynn Reid MD electronically signed on 07/30/2023 1:02:45 PM with status of Final
== END ==
LOC: HO.CARD 14:04
PROVIDERS: PCP Hospitalist; Visit Provider Nurse Practitioner Family
DX: R01.1 Cardiac murmur, unspecified (principal); R09.89 Other specified symptoms and signs involving the circulatory and respiratory systems
CPT/HCPCS: 93306; 93356

== ENCOUNTER → 2023-07-30 14:06 | Outpatient (BNV) | payer MEDICARE, SELFPAY | PROVIDERS: PCP Hospitalist; Visit Provider Internal Medicine | DX: I34.81 Nonrheumatic mitral (valve) annulus calcification (principal) | CPT/HCPCS: 93306; 93356 ==

== ENCOUNTER 2023-08-09 10:10 | Outpatient (AMB) | payer MEDICARE, SELFPAY ==
[2023-08-09 10:15] VITALS: BP 130/82; PULSE 81; O2SAT 97; BMI 41.3
--- NOTE | 2023-08-09 10:15 | MHC.PC.OV ---
Vital Signs 08/09/23 10:15 08/09/23 10:20 Height 5 ft 5 in Weight 248 lb 2 oz BMI 41.3 BP 130/82 138/86 Blood Pressure Location Lt brachial Rt brachial Position Sitting Sitting Pulse 81 Pulse Source Pulse Oximeter Pulse Oximetry (%) 97 Oxygen Delivery Method Room Air Intake Visit Reasons: discuss echo findings Intake Note: Pt presents to the office today for a follow up to discuss echo results. Pt states she is feeling well and denies any concerns at this time. Allergies amoxicillin [From AUGMENTIN] Allergy (Intermediate, Verified 08/09/23 10:25) HIVES cefazolin [From Ancef] Allergy (Intermediate, Verified 08/09/23 10:25) SOB Wheezing clavulanic acid [From AUGMENTIN] Allergy (Intermediate, Verified 08/09/23 10:25) HIVES vancomycin Allergy (Intermediate, Verified 08/09/23 10:25) SOB, wheezing Medication List - Last Reconciled 08/09/23 by Kanwal Marcos, LEODAN-BC albuterol sulfate 90 mcg/actuation 1 puff inhalation Q4H PRN allopurinol 300 mg PO DAILY bupropion HCl 300 mg PO QAM cetirizine 10 mg PO DAILY cholecalciferol (vitamin D3) 125 mcg PO DAILY 3 months coQ10 (ubiquinol) 200 mg PO DAILY 3 months escitalopram oxalate 20 mg PO DAILY ferrous fumarate 89 mg PO TID 3 months lansoprazole (Prevacid) 30 mg PO DAILY 30 days multivitamin (Daily Multi-Vitamin tablet) 1 tab PO DAILY 3 months vitamin Q82-tszrg acid 1,000-400 mcg daily sublingual daily; 1 month Tobacco use date assessed: 07/02/23 Fall risk assessment: 2 + Falls in past year Last assessed Fall Risk: 08/09/23 Dental Screening Dental Screen Date: 08/09/23 Did you have a dental visit in the last 12 months?: Yes Did you have a dental problem in the last 6 months where you did not have access to dental care?: No Was dental information given to patient?: Patient has dentist HPI HPI Comments History of Present Illness Details 67-year-old female with gout, anxiety, depression, asthma, osteoarthritis, diabetes type 2, diverticulosis, Jacobs's esophagus, hyperlipidemia, HFprEF (echo 07/2023) Status post bilat knee replacement, gastric surgery, cholecystectomy Health maintenance Colonoscopy 2022 with tubular adenoma repeat in 5 years (2027) EGD January of 2023 repeat in 6-12 months Mammogram July of 2022 within normal limits [facility] Here today to discuss labs results and imaging. Info below reviewed: US/US carotid duplex BI IMPRESSION: 1. RIGHT: Minimal, non-hemodynamically significant stenosis of the proximal right internal carotid artery corresponding to a 0-49% stenosis by velocity criteria. 2. LEFT: Normal left internal carotid artery without atherosclerotic plaque or hemodynamically significant stenosis. Echocardiogram 07/30/2023 shows mildly increased left ventricular wall thickness. Ejection fraction 58%. Grade 1 diastolic dysfunction. Left atrium is mildly dilated. Moderate posterior mitral annular calcification. Trace mitral valve regurg. Trace tricuspid valve regurg. Labs 07/05/2023 show a normal CBC, normal electrolytes, normal renal function, fasting glucose 121, hemoglobin A1c 5.7, normal iron, normal LFTs, total cholesterol 228, LDL 138, HDL 68, triglycerides 113, normal vitamin B12, low normal vitamin-D 22, normal folate, normal TSH, normal urine microalbumin [place] coronary heart disease risk 16 (4% risk of heart disease in 10 years) Other than having something fall on R lower leg a few days ago and suffering a lac, which has been caring for, she has been well w/o complaints. [facility] Medical History Gout Anxiety and depression Asthma Osteoarthritis Diet-controlled type 2 diabetes mellitus Surgical History History of esophagogastroduodenoscopy (EGD) Hx of colonoscopy History of knee replacement procedure of right knee History of knee replacement procedure of left knee History of gastric surgery History of cholecystectomy Family History Father Hypertension Colon cancer Prostate cancer Mother No problems noted. 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 1. Little interest or pleasure in doing things: not at all 2. Feeling down, depressed, or hopeless: several days (on medication) 3. Trouble falling or staying asleep, or sleeping too much: not at all 4. Feeling tired or having little energy: not at all 5. Poor appetite or overeating: not at all 6. Feeling bad about yourself - or that you are a failure or have let yourself or your family down: not at all 7. Trouble concentrating on things, such as reading the newspaper or watching television: not at all 8. Moving or speaking so slowly that other people could have noticed. Or the opposite - being so fidgety or restless that you have been moving around a lot more than usual: not at all 9. Thoughts that you would be better off or of hurting yourself in some way: not at all Total score: 1 Depression Screening Interpretation: Negative Depression Screening Done: Yes 13670 - PHQ-9 Billing: Yes Source: Developed by Drs. Ari Steen, Wendy Bashir, Ananda Bedolla and colleagues, with an educational derek from [employer]. Thrive Questionnaire Date Thrive assessed: 07/02/23 I am a: Patient What is your living situation today?: I have a steady place to live Within the past 12 months, did the food you bought not last and you didn't have the money to get more?: Never true Within the past 12 months, did you worry whether your food would run out before you got money to buy more?: Never true Do you have trouble paying for medicines?: No Do you have trouble getting transportation to medical appointments?: No Do you have trouble paying your heating and electricity bill?: No Do you have trouble taking care of your child, family member or friend?: No Do you have trouble with day-to-day activities such as bathing, preparing meals, shopping, managing finances, etc.?: No Are you currently unemployed and looking for a job?: No Are you interested in more education?: No Currently or been in a relationship where the following occur: no concerns reported THRIVE Score: 0 AUDIT C Alcohol Use Questionnaire (AUDIT-C) 1. How often do you have a drink containing alcohol?: 2-4 times a month 2. How many drinks containing alcohol do you have on a typical day when you are drinking?: 1 or 2 3. How often do you have six or more drinks on one occasion?: Never Total Score: 2 Score Reviewed/Action Taken: Yes EMANI-7 AMB Questionnaire EMANI-7 Date EMANI - 7 assessed: 07/02/23 Feeling nervous, anxious, or on edge: 0 = Not at all Not being able to stop or control worryin = Not at all Worrying too much about different things: 0 = Not at all Trouble relaxin = Not at all Being so restless that it is hard to sit still: 0 = Not at all Becoming easily annoyed or irritable: 0 = Not at all Feeling afraid as if something awful might happen: 0 = Not at all Total EMANI-7 score (0-4 normal; 5-9 mild; 10-14 moderate; 15-21 severe): 0 Source: Developed by Drs. Ari Steen, Wendy Bashir, Ananda Bedolla and colleagues, with an educational derek from [employer]. EMANI-7 Assessment Billing EMANI-7 Assessment Tool: EMANI-7 Assessment 76500 Review of Systems Const All systems reviewed & are unremarkable except as noted in HPI and below Physical exam (Primary Care) Vital Signs: Last Vital Signs Pulse 81 08/09/23 10:15 BP 138/86 08/09/23 10:20 Pulse Ox 97 08/09/23 10:15 Oxygen Delivery Method Room Air 08/09/23 10:15 BMI result Body Mass Index 41.3 BMI Assessment/Plan discussion: High Tobacco/Smoking Status: Tobacco use Status Tobacco use date assessed 07/02/23 08/09/23 10:17 Patient Tobacco Use Status Former Tobacco user 08/09/23 10:17 e-Cigarette/Vaping Use Never Used 08/09/23 10:17 PHQ-9: PHQ-9 Score PHQ-9: Total score 1 08/09/23 10:23 Depression Screening Interpretation: Negative Thrive Assessment: Date of Thrive Assessment Date Thrive assessed 07/02/23 08/09/23 10:17 Currently or been in a relationship where the following occur: no concerns reported Const Other: Awake alert NAD Scleras nonicteric Carotid bruit bilat 2/6 systolic murmur, RSB, Regular Rate and Rythym LS CTAB Nonpitting edema BLE, varicosities, pedal pulses WNL bilat, Right anterior lower leg w/ large laceration w/ surround ecchymosis, moist center, no signs of infections, edges not approximated. Assessment and Plan Assessment & Plan (1) Diastolic heart failure: Comment: Echocardiogram 07/30/2023 shows mildly increased left ventricular wall thickness. Ejection fraction 58%. Grade 1 diastolic dysfunction. Left atrium is mildly dilated. Moderate posterior mitral annular calcification. Trace mitral valve regurg. Trace tricuspid valve regurg. Plan: Start ARB & STATIN, repeat echo 2025, sooner PRN, edu on s/sx of CHF Losartan 25 mg QD Simvastatin 40mg QD CMP and Lipids in 3 months w/ OV Code(s): I50.30 - Unspecified diastolic (congestive) heart failure Qualifiers: Heart failure chronicity: chronic Qualified Code(s): I50.32 - Chronic diastolic (congestive) heart failure (2) Diabetes type 2 with atherosclerosis of arteries of extremities: Comment: with lac to RLE w/o infection Plan: cleanse daily, apply xeroform gauze and nonadh pad and DCD. change qd until healed Monitor for s/sx of infection START simvastatin 40mg QD, repeat labs 3 months Code(s): E11.51 - Type 2 diabetes mellitus with diabetic peripheral angiopathy without gangrene; I70.209 - Unspecified atherosclerosis of [place] arteries of extremities, unspecified extremity (3) Neuropathy: Comment: likely related to DM as b12 levels WNL. Fall risk edu provided Code(s): G62.9 - Polyneuropathy, unspecified (4) Bilateral carotid bruits: Comment: US/US carotid duplex BI IMPRESSION: 1. RIGHT: Minimal, non-hemodynamically significant stenosis of the proximal right internal carotid artery corresponding to a 0-49% stenosis by velocity criteria. 2. LEFT: Normal left internal carotid artery without atherosclerotic plaque or hemodynamically significant stenosis. START simvastatin 40mg QD Code(s): R09.89 - Other specified symptoms and signs involving the circulatory and respiratory systems (5) Hyperlipidemia associated with type 2 diabetes mellitus: Comment: LDL goal < 70 Start simvastatin 40mg QD Code(s): E11.69 - Type 2 diabetes mellitus with other specified complication; E78.5 - Hyperlipidemia, unspecified (6) Morbid (severe) obesity due to excess calories: Comment: BMI > 41 W/ comorbid conditions of HLD and CHF Code(s): E66.01 - Morbid (severe) obesity due to excess calories Plan This note is constructed using voice recognition software. While every effort has been made to ensure accuracy in photo manager, still errors may have been included Sometimes, these errors may affect the content or meaning of the given sentence . Total time spent caring for the patient today was 45 minutes. This includes time spent before the visit reviewing the chart, time spent during the visit, and time spent after the visit on documentation RTO IN 3-4 MO TO F/U ON REPEAT LABS, HLD, CHF, DM Orders: Orders Comprehensive [place]. Panel Fast 10/26/23 E11.51 - Type 2 diabetes mellitus with diabetic peripheral angiopathy without gangrene, E11.69 - Type 2 diabetes mellitus with other specified complication, E66.01 - Morbid (severe) obesity due to excess calories, E78.5 - Hyperlipidemia, unspecified, G62.9 - Polyneuropathy, unspecified, I50.30 - Unspecified diastolic (congestive) heart failure, I70.209 - Unspecified atherosclerosis of [place] arteries of extremities, unspecified extremity, R09.89 - Other specified symptoms and signs involving the circulatory and respiratory systems Hemoglobin A1c 10/26/23 E11.51 - Type 2 diabetes mellitus with diabetic peripheral angiopathy without gangrene, I70.209 - Unspecified atherosclerosis of [place] arteries of extremities, unspecified extremity Lipid Panel 10/26/23 E11.51 - Type 2 diabetes mellitus with diabetic peripheral angiopathy without gangrene, E11.69 - Type 2 diabetes mellitus with other specified complication, E66.01 - Morbid (severe) obesity due to excess calories, E78.5 - Hyperlipidemia, unspecified, G62.9 - Polyneuropathy, unspecified, I50.30 - Unspecified diastolic (congestive) heart failure, I70.209 - Unspecified atherosclerosis of [place] arteries of extremities, unspecified extremity, R09.89 - Other specified symptoms and signs involving the circulatory and respiratory systems Medications: New simvastatin 40 mg PO BEDTIME 90 tabs 0RF losartan 25 mg PO DAILY 90 tabs 0RF nystatin (Nystop) apply under breasts until healed 1 appl topical BID 60 grams 1RF Coding Level of Care Code Est Pt Level 5 (18508) Diagnoses Chronic diastolic heart failure I50.32 Heart failure chronicity: chronic Diabetes type 2 with atherosclerosis of arteries of extremities E11.51; I70.209 Neuropathy G62.9 Bilateral carotid bruits R09.89 Hyperlipidemia associated with type 2 diabetes mellitus E11.69; E78.5 Morbid (severe) obesity due to excess calories E66.01 Additional Codes EMANI-7 Assessment Billing - EMANI-7 Assessment Tool: EMANI-7 Assessment 53453 ([id number])
[2023-08-09 10:20] VITALS: BP 138/86
== END 2023-08-09 10:52 | disposition home or self-care (01) ==
PROVIDERS: PCP Nurse Practitioner Family; Visit Provider Nurse Practitioner Family
DX: I50.32 Chronic diastolic (congestive) heart failure (principal); E11.51 Type 2 diabetes mellitus with diabetic peripheral angiopathy without gangrene; E66.01 Morbid (severe) obesity due to excess calories; Z68.41 Body mass index [BMI] 40.0-44.9, adult; I70.209 Unspecified atherosclerosis of native arteries of extremities, unspecified extremity; E11.69 Type 2 diabetes mellitus with other specified complication; G62.9 Polyneuropathy, unspecified; R09.89 Other specified symptoms and signs involving the circulatory and respiratory systems; E78.5 Hyperlipidemia, unspecified
CPT/HCPCS: 99215

== ENCOUNTER 2023-08-20 14:43 | Outpatient (REF) | payer MEDICARE, SELFPAY ==
--- NOTE | ~2023-08-20 | MM_ITS ---
EXAMINATION: MM SCREENING DIGITAL BREAST TOMOSYNTHESIS, BILATERAL CLINICAL INFORMATION: Screening. Asymptomatic. COMPARISON: Mammography: This study is compared with prior exams dating back to 2019. TECHNIQUE: Digital breast tomosynthesis is performed in both the craniocaudal and mediolateral oblique views along with computer-aided detection (CAD). Synthesized 2D images are generated from the tomosynthesis. FINDINGS: There are scattered areas of fibroglandular density (ACR BI-RADS breast composition Category b). There are no significant masses, abnormal calcifications, or other abnormalities. There is a tissue marker present in the lateral aspect of the left breast from prior benign percutaneous biopsy. MM/MM tomosynthesis screening BI IMPRESSION: No mammographic evidence of malignancy. ASSESSMENT: BI-RADS BI-RADS 2 - Benign Findings RECOMMENDATION: Routine annual mammography screening. 1 year F/U This examination should not preclude the clinical evaluation of a suspicious palpable abnormality. This patient's information was entered into a reminder system with a target due date for their next mammogram.
== END 2023-08-20 14:44 | disposition home or self-care (01) ==
LOC: HO.MAMMO 14:43
PROVIDERS: PCP Nurse Practitioner Family; Visit Provider Nurse Practitioner Family
DX: Z12.31 Encounter for screening mammogram for malignant neoplasm of breast (principal)
CPT/HCPCS: 77063; 77067

== ENCOUNTER → 2023-08-20 14:45 | Outpatient (BNV) | payer MEDICARE, SELFPAY | PROVIDERS: PCP Nurse Practitioner Family; Visit Provider Radiology Diagnostic Radiology | DX: Z12.31 Encounter for screening mammogram for malignant neoplasm of breast (principal) | CPT/HCPCS: 77063; 77067 ==

== ENCOUNTER 2023-12-04 10:37 | Outpatient (AMB) | payer MEDICARE, SELFPAY ==
[2023-12-04 10:42] VITALS: BP 130/80; PULSE 74; O2SAT 96; BMI 41.6
--- NOTE | 2023-12-04 10:42 | MHC.PC.OV ---
Vital Signs 12/04/23 10:42 Height 5 ft 5 in Weight 250 lb BMI 41.6 BP 130/80 Blood Pressure Location Lt brachial Position Sitting Pulse 74 Pulse Source Pulse Oximeter Pulse Oximetry (%) 96 Oxygen Delivery Method Room Air Intake Visit Reasons: transfer from on [facility], continuation of care Intake Note: Patient is here as a transfer from [facility], she would like to talk about Losrtan due to leg swelling after taking it, and needs refill of Simvastatin. Allergies amoxicillin [From AUGMENTIN] Allergy (Intermediate, Verified 12/04/23 10:51) HIVES cefazolin [From Ancef] Allergy (Intermediate, Verified 12/04/23 10:51) SOB Wheezing clavulanic acid [From AUGMENTIN] Allergy (Intermediate, Verified 12/04/23 10:51) HIVES vancomycin Allergy (Intermediate, Verified 12/04/23 10:51) SOB, wheezing Medication List - Last Reconciled 12/04/23 by Kanwal Marcos, [employer]OUND [employer]GGER-BC albuterol sulfate 90 mcg/actuation 1 puff inhalation Q4H PRN allopurinol 300 mg PO DAILY bupropion HCl XL 300 mg PO QAM cetirizine 10 mg PO DAILY cholecalciferol (vitamin D3) 125 mcg PO DAILY 3 months coQ10 (ubiquinol) 200 mg PO DAILY 3 months escitalopram oxalate 20 mg PO DAILY ferrous fumarate 89 mg PO TID 3 months lansoprazole (Prevacid) 30 mg PO DAILY 30 days losartan 25 mg PO DAILY multivitamin (Daily Multi-Vitamin tablet) 1 tab PO DAILY 3 months nystatin (Nystop) 1 appl topical BID simvastatin 40 mg PO BEDTIME vitamin M67-mzkuo acid 1,000-400 mcg daily sublingual daily; 1 month Tobacco use date assessed: 12/04/23 Fall risk assessment: 2 + Falls in past year Last assessed Fall Risk: 12/04/23 Dental Screening Dental Screen Date: 08/09/23 HPI HPI Comments History of Present Illness Details 68-year-old female with gout, anxiety, depression, asthma, osteoarthritis, diabetes type 2, diverticulosis, Jacobs's esophagus, hyperlipidemia, HFprEF (echo 07/2023), obesity Status post bilat knee replacement, gastric surgery, cholecystectomy Health maintenance Colonoscopy 2022 with tubular adenoma repeat in 5 years (2027) EGD January of 2023 repeat in 6-12 months Mammogram 08/2023 BI-RADS BI-RADS 2 - Benign Findings DM Eye exam 08/20/23 Negative for diabetic retinopathy, glaucoma suspect RTO [address] [facility] Echocardiogram 07/30/2023 shows mildly increased left ventricular wall thickness. Ejection fraction 58%. Grade 1 diastolic dysfunction. Left atrium is mildly dilated. Moderate posterior mitral annular calcification. Trace mitral valve regurg. Trace tricuspid valve regurg. Labs 07/05/2023 show a normal CBC, normal electrolytes, normal renal function, fasting glucose 121, hemoglobin A1c 5.7, normal iron, normal LFTs, total cholesterol 228, LDL 138, HDL 68, triglycerides 113, normal vitamin B12, low normal vitamin-D 22, normal folate, normal TSH, normal urine microalbumin [place] coronary heart disease risk 16 (4% risk of heart disease in 10 years) Here today for follow up of chronic conditions. At the last office visit in July she was started on losartan 25 mg daily and simvastatin 40 mg daily Shortly after starting losartan started to note sock winter on her ankles; the swelling has not gotten worse since onset. BP is WNL. Wt is stable. Recently cut out flour and sugar w/ goal to lose wt. cont to not eat meat. 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 Breathing is good. Denies chest pain has some depression @ times, not new. Feels able to deal w/this. Cont on meds. Denies si/hi. Rates worse sx 5/10 usually 2/10. Anxiety is about the same. does not wish to change meds @ this time. Labs from today show normal electrolytes, normal renal function, improve fasting glucose of 115, hemoglobin A1c 5.9% (was 5.7%), elevation and calcium of 10.7, normal LFTs, improved triglycerides at 74, improved total cholesterol 166, improved LDL 79, improved HDL 73 Plan: Continue losartan, if swelling becomes worse or bothersome please let me know. [facility]ill on statin and [facility]. Check [facility] about Pneumococcal vaccine series and get any outstanding ones done. RTO 3 months for AWV, sooner PRN Sent via the portal: Hi Anna Labs show mild elevation in your Calcium. I would like to check some additional labs. This may be a result of lab transport (the tube going from my office to the lab). The labs are non fasting, if you can get them done..i would prefer at [facility] so that we don't have to worry about specimen transport. Otherwise labs look good. Please let me know if you have any questions. Kanwal JOSE Medical History Gout Anxiety and depression Asthma Osteoarthritis Diet-controlled type 2 diabetes mellitus Surgical History History of esophagogastroduodenoscopy (EGD) Hx of colonoscopy History of knee replacement procedure of right knee History of knee replacement procedure of left knee History of gastric surgery History of cholecystectomy Family History Father Hypertension Colon cancer Prostate cancer Mother No problems noted. 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 Ari Steen, Wendy Bashir, Ananda Bedolla and colleagues, with an educational derek from [employer]. Physical exam (Primary Care) Vital Signs: Last Vital Signs Pulse 74 12/04/23 10:42 BP 130/80 12/04/23 10:42 Pulse Ox 96 12/04/23 10:42 Oxygen Delivery Method Room Air 12/04/23 10:42 BMI result Body Mass Index 41.6 Tobacco/Smoking Status: Tobacco use Status Tobacco use date assessed 12/04/23 12/04/23 10:52 Patient Tobacco Use Status Former Tobacco user 12/04/23 10:52 e-Cigarette/Vaping Use Never Used 12/04/23 10:52 Thrive Assessment: Date of Thrive Assessment Date Thrive assessed 07/02/23 12/04/23 10:52 Const Other: Awake alert NAD Scleras nonicteric Carotid bruit bilat 2/6 systolic murmur, RSB, Regular Rate and Rythym LS CTAB Nonpitting edema BLE, varicosities, pedal pulses WNL bilat, Mood & affett appropriate Assessment and Plan Assessment & Plan (1) Hypercalcemia: Code(s): E83.52 - Hypercalcemia (2) Morbid (severe) obesity due to excess calories: Comment: BMI > 41 W/ comorbid conditions of HLD and CHF Code(s): E66.01 - Morbid (severe) obesity due to excess calories (3) Diastolic heart failure: Comment: Echocardiogram 07/30/2023 shows mildly increased left ventricular wall thickness. Ejection fraction 58%. Grade 1 diastolic dysfunction. Left atrium is mildly dilated. Moderate posterior mitral annular calcification. Trace mitral valve regurg. Trace tricuspid valve regurg. Plan: & STATIN, repeat echo 2025, sooner PRN, edu on s/sx of CHF Losartan 25 mg QD Simvastatin 40mg QD Code(s): I50.30 - Unspecified diastolic (congestive) heart failure Qualifiers: Heart failure chronicity: chronic Qualified Code(s): I50.32 - Chronic diastolic (congestive) heart failure (4) Diabetes type 2 with atherosclerosis of arteries of extremities: Comment: cont simvastatin 40mg QD Code(s): E11.51 - Type 2 diabetes mellitus with diabetic peripheral angiopathy without gangrene; I70.209 - Unspecified atherosclerosis of [place] arteries of extremities, unspecified extremity (5) Anxiety: Code(s): F41.9 - Anxiety disorder, unspecified (6) MDD (major depressive disorder): Code(s): F32.9 - Major depressive disorder, single episode, unspecified Qualifiers: Major depression recurrence: recurrent Active/Remission status: currently active Major depression episode severity: mild Qualified Code(s): F33.0 - Major depressive disorder, recurrent, mild Plan This note is constructed using voice recognition software. While every effort has been made to ensure accuracy in physical design engineer, still errors may have been included Sometimes, these errors may affect the content or meaning of the given sentence . Total time spent caring for the patient today was 40 minutes. This includes time spent before the visit reviewing the chart, time spent during the visit, and time spent after the visit on documentation Medications: Refilled simvastatin 40 mg PO BEDTIME 90 tabs 1RF Coding Level of Care Code Est Pt Level 5 (37024) Diagnoses Hypercalcemia E83.52 Morbid (severe) obesity due to excess calories E66.01 Chronic diastolic heart failure I50.32 Heart failure chronicity: chronic Diabetes type 2 with atherosclerosis of arteries of extremities E11.51; I70.209 Anxiety F41.9 Mild episode of recurrent major depressive disorder F33.0 Major depression recurrence: recurrent Active/Remission status: currently active Major depression episode severity: mild
== END 2023-12-04 11:36 | disposition home or self-care (01) ==
PROVIDERS: PCP Nurse Practitioner Family; Visit Provider Nurse Practitioner Family
DX: E11.51 Type 2 diabetes mellitus with diabetic peripheral angiopathy without gangrene (principal); E66.01 Morbid (severe) obesity due to excess calories; I50.32 Chronic diastolic (congestive) heart failure; Z68.41 Body mass index [BMI] 40.0-44.9, adult; I70.209 Unspecified atherosclerosis of native arteries of extremities, unspecified extremity; F33.0 Major depressive disorder, recurrent, mild; E83.52 Hypercalcemia; F41.9 Anxiety disorder, unspecified
CPT/HCPCS: 99215

== ENCOUNTER 2023-12-04 11:27 | Outpatient (REF) | payer MEDICARE, SELFPAY ==
[2023-12-04 14:36] LABS: Alanine Aminotransferase 28 U/L (0-31); Albumin Level 4.4 g/dL (3.5-5.0); Alkaline Phosphatase 99 U/L (39-117); Anion Gap 12 (12-20); Aspartate Amino Transferase 28 U/L (5-31); Bilirubin Total 0.4 mg/dL (0.0-1.0); Blood Urea Nitrogen 16 mg/dL (9-16); Calcium 10.7 mg/dL (8.4-10.2); Carbon Dioxide 28 mmol/L (22-29); Chloride 108 mmol/L (96-108); Cholesterol 166 mg/dL (<200); Estimated Average Glucose 123 mg/dL; Estimated Glomerular Filt Rate 60; Glucose Fasting 115 mg/dL (60-99); HDL Cholesterol 73 mg/dL (>40); Hemoglobin A1c % 5.9 % (<6.0); LDL Cholesterol Calculated 79 mg/dL (<100); Potassium 4.3 mmol/L (3.3-5.1); Sodium 144 mmol/L (135-145); Total Protein 7.3 g/dL (6.5-8.0); Triglycerides 74 mg/dL (<150)
== END 2023-12-04 11:28 | disposition home or self-care (01) ==
LOC: HO.WFDLDS 11:27
PROVIDERS: Visit Provider Nurse Practitioner Family
DX: I50.30 Unspecified diastolic (congestive) heart failure (principal); E11.51 Type 2 diabetes mellitus with diabetic peripheral angiopathy without gangrene; I70.209 Unspecified atherosclerosis of native arteries of extremities, unspecified extremity; R09.89 Other specified symptoms and signs involving the circulatory and respiratory systems; E11.69 Type 2 diabetes mellitus with other specified complication; E78.5 Hyperlipidemia, unspecified; E66.01 Morbid (severe) obesity due to excess calories; G62.9 Polyneuropathy, unspecified
CPT/HCPCS: 36415; 80053; 80061; 83036

== ENCOUNTER 2024-01-31 15:34 | Outpatient (AMB) | payer MEDICARE, SELFPAY ==
--- NOTE | 2024-01-31 15:38 | A.OFFPC_ITS ---
Vital Signs 3 01/31/24 15:39 01/31/24 15:45 Height 5 ft 5 in Weight 252 lb BMI 41.9 BP 148/54 H 140/62 H Blood Pressure Location Rt brachial Lt brachial Position Sitting Sitting Respiration 16 Pulse 91 Pulse Source Pulse Oximeter Pulse Oximetry (%) 98 Oxygen Delivery Method Room Air Intake Visit Reasons: Lump in right breast Intake Note: Lump in right breast. Allergies amoxicillin [From AUGMENTIN] Allergy (Intermediate, Verified 01/31/24 15:38) HIVES cefazolin [From Ancef] Allergy (Intermediate, Verified 01/31/24 15:38) SOB Wheezing clavulanic acid [From AUGMENTIN] Allergy (Intermediate, Verified 01/31/24 15:38) HIVES vancomycin Allergy (Intermediate, Verified 01/31/24 15:38) SOB, wheezing Tobacco use date assessed: 12/04/23 Dental Screening Dental Screen Date: 08/09/23 HPI HPI Comments 2 History of Present Illness0 Details 68-year-old female with gout, anxiety, d epression, asthma, osteoarthritis, diabetes type 2, diverticulosis, Jacobs's esophagus, hyperlipidemia, HFprEF (echo 07/2023), obesity Status post bilat knee replacement, gastric surgery, cholecystectomy Here today with complaints of a new breast lump located in the right side that was noted incidentally by her partner on Saturday. She reports that the area is hard, nonmobile, smooth of the touch and painless. Denies any fever, skin changes, nipple changes, discharge. Mammogram 08/20/2023 BI-RADS BI-RADS 2 - Benign Findings - see below for full report Exam superficial palpable lumps, 2 oclock starting at areaola and extends to Upper inner Quad has some mild breast tenderness on right side generally speaking w/ palpation Plan Proceed with diagnostic mammogram of the right breast and ultrasound of the right breast. Patient educated on the process. I advised her to let me know if she does not hear anything on Saturday about scheduling. Total time spent caring for the patient today was 30 minutes. This includes time spent before the visit reviewing the chart, time spent during the visit, and time spent after the visit on documentation This note is constructed using voice recognition software. While every effort has been made to ensure accuracy in skylights assembler, still errors may have been included Sometimes, these errors may affect the content or meaning of the given sentence . [facility] Medical History Gout Anxiety and depression Asthma Osteoarthritis Diet-controlled type 2 diabetes mellitus Surgical History History of esophagogastroduodenoscopy (EGD) Hx of colonoscopy History of knee replacement procedure of right knee History of knee replacement procedure of left knee History of gastric surgery History of cholecystectomy Family History Father Hypertension Colon cancer Prostate cancer Mother No problems noted. 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 Ari Steen, Wendy Bashir, Ananda Bedolla and colleagues, with an educational derek from [employer]. Physical exam (Primary Care) Vital Signs: Last Vital Signs Pulse 91 01/31/24 15:39 Resp 16 01/31/24 15:39 BP 140/62 H 01/31/24 15:45 Pulse Ox 98 01/31/24 15:39 Oxygen Delivery Method Room Air 01/31/24 15:39 BMI result Body Mass Index 41.9 Tobacco/Smoking Status: Tobacco use Status Tobacco use date assessed 12/04/23 01/31/24 15:45 Patient Tobacco Use Status Former Tobacco user 01/31/24 15:45 e-Cigarette/Vaping Use Never Used 01/31/24 15:45 Thrive Assessment: Date of Thrive Assessment Date Thrive assessed 07/02/23 01/31/24 15:45 Chest Other: offered and declined litigation claim representative dense breasts, nipple intact, no drainage, no skin changes, right breast exam see below. Left breast exam no appreciable lumps Chest/axillae images: 2 1. superficial palpable lumps, 2 oclock starting at areaola and extends to Upper inner Quad has some mild breast tenderness on right side generally speaking w/ palpation 2. several palpable lumps, almost crepitus type feel w palpation to this area Results Reviewed Results Reviewed: [facility] [address] [place], [place] [address] Mammography Report Signed Patient: Anna Swan MR#: [id number] : 1955 Acct:[id number] Age/Sex: 67 / F ADM Date: 08/20/23 Loc: HO.MAMMO Attending Dr: Kanwal SAMUEL Ordering Physician: Kanwal Marcos Results: 2Benign Findings Date of Service: 08/20/23 Follow Up: 1 Year From Original Mammogram Procedure(s): MM tomosynthesis screening BI Accession Number(s): [id number] cc: Kanwal Marcos~ EXAMINATION: MM SCREENING DIGITAL BREAST TOMOSYNTHESIS, BILATERAL CLINICAL INFORMATION: Screening. Asymptomatic. COMPARISON: Mammography: This study is compared with prior exams dating back to 2019. TECHNIQUE: Digital breast tomosynthesis is performed in both the craniocaudal and mediolateral oblique views along with computer-aided detection (CAD). Synthesized 2D images are generated from the tomosynthesis. FINDINGS: There are scattered areas of fibroglandular density (ACR BI-RADS breast composition Category b). There are no significant masses, abnormal calcifications, or other abnormalities. There is a tissue marker present in the lateral aspect of the left breast from prior benign percutaneous biopsy. MM/MM tomosynthesis screening BI IMPRESSION: No mammographic evidence of malignancy. ASSESSMENT: BI-RADS BI-RADS 2 - Benign Findings RECOMMENDATION: Routine annual mammography screening. 1 year F/U This examination should not preclude the clinical evaluation of a suspicious palpable abnormality. This patient's information was entered into a reminder system with a target due date for their next mammogram. Dictated By: Enma Myrick MD Signed By: <Electronically signed by Enma Myrick MD in OV> 09/05/23 0623 Assessment and Plan Assessment & Plan (1) Breast lump on right side at 2 o'clock position: Code(s): N63.12 - Unspecified lump in the right breast, upper inner quadrant Orders: Orders 2 MM tomosynthesis diagnostic RT Today N63.12 - Unspecified lump in the right breast, upper inner quadrant US breast RT complete Today N63.12 - Unspecified lump in the right breast, upper inner quadrant Coding Level of Care Code Est Pt Level 4 (80265) Diagnoses Breast lump on right side at 2 o'clock position N63.12
[2024-01-31 15:39] VITALS: BP 148/54; PULSE 91; RESP 16; O2SAT 98; BMI 41.9
[2024-01-31 15:45] VITALS: BP 140/62
== END 2024-01-31 16:23 | disposition home or self-care (01) ==
PROVIDERS: PCP Nurse Practitioner Family; Visit Provider Nurse Practitioner Family
DX: N63.12 Unspecified lump in the right breast, upper inner quadrant (principal)
CPT/HCPCS: 99214

== ENCOUNTER 2024-03-12 10:27 | Outpatient (AMB) | payer MEDICARE, SELFPAY ==
--- NOTE | 2024-03-12 10:35 | AM.OFFVISMDC ---
Intake Vital Signs 03/12/24 10:38 Height 5 ft 5 in Weight 257 lb 4 oz BMI 42.8 BP 142/78 H Blood Pressure Location Lt brachial Position Sitting Respiration 15 Pulse 79 Pulse Source Pulse Oximeter Pulse Oximetry (%) 98 Oxygen Delivery Method Room Air Intake Visit Reasons: SWV [id number] Intake Note: annual physical Allergies amoxicillin [From AUGMENTIN] Allergy (Intermediate, Verified 03/12/24 11:09) HIVES cefazolin [From Ancef] Allergy (Intermediate, Verified 03/12/24 11:09) SOB Wheezing clavulanic acid [From AUGMENTIN] Allergy (Intermediate, Verified 03/12/24 11:09) HIVES vancomycin Allergy (Intermediate, Verified 03/12/24 11:09) SOB, wheezing Medication List - Last Reconciled 03/12/24 by Kanwal Marcos, [facility]- albuterol sulfate 90 mcg/actuation 1 puff inhalation Q4H PRN allopurinol 300 mg PO DAILY bupropion HCl XL 300 mg PO QAM cetirizine 10 mg PO DAILY cholecalciferol (vitamin D3) 125 mcg PO DAILY 3 months clobetasol 0.05% 1 appl topical BEDTIME PRN coQ10 (ubiquinol) 200 mg PO DAILY 3 months escitalopram oxalate 20 mg PO DAILY ferrous fumarate 89 mg PO ONCE lansoprazole 30 mg PO DAILY losartan 25 mg PO DAILY multivitamin (Daily Multi-Vitamin tablet) 1 tab PO DAILY 3 months nystatin (Nystop) 1 appl topical BID simvastatin 40 mg PO BEDTIME vitamin H08-ydjtw acid 1,000-400 mcg daily sublingual daily; 1 month Do you need a note to return to daycare/school/sports/work: No HPI HPI Comments History of Present Illness Details Here today for First AWV. The Medicare Annual Wellness Visit (AWV) is a yearly appointment with a health professional to identify health risks and help reduce them and to create or update a personalized prevention plan. During a Medicare AWV, health professionals should also review any current opioid prescriptions, detect any cognitive impairment, and establish or update medical and family history. 68-year-old female with gout, anxiety, depression, asthma, stress incont, lichen sclerosis osteoarthritis, diabetes type 2, diverticulosis, Jacobs's esophagus, hyperlipidemia, HFprEF (echo 07/2023), obesity, intraductal papiloma with atypical ductal hyperplasia of R breast, 1st degree AV block Status post bilat knee replacement, gastric surgery, cholecystectomy Health maintenance: See scanned preventative medicine assessment with personalized health plan and screening schedule. Colonoscopy 2022 with tubular adenoma repeat in 5 years (2027); EGD done at same time + Dejah Britton EGD January of 2023 repeat in 6-12 months Mammogram 08/2023 BI-RADS BI-RADS 2 - Benign Findings, 01/2024 R Breast dx mammo and US:done at [facility] intraductal papiloma with atypical ductal hyperplasia of R breast DM Eye exam 08/20/23 Negative for diabetic retinopathy, glaucoma suspect RTO [address] Reilly Vaccines: UTD on Flu given today, Shingles 08/2022 & 01/2023, UTD COVID, RSV DEXA: declined AAA screen: NA EKG: Sinus rhythm with first-degree AV block Specialists/[place] of Care: GI visit Q 6 months due for repeat EGD, will call to schedule ED MANAGER at [facility] last pap a few years ago, has Lichen sclerosis; has PRN clobetasol, uses for 1 week twice per day for infrequent flares. Last visit 2020. Would like to schedule appt. Optho - UTD on exams, cataract suspect, s/p cataract extraction bilat. . DM Eye exam 08/20/23 Negative for diabetic retinopathy, glaucoma suspect RTO [address] Reilly Breast Specialist @ [facility] Visual Acuity: Wears glasses, Snellen done today Hearing Screening: trouble hearing when background noise. Referred today for Audiogram. Does not currently wear hearing aides. ACP: MOLST and HCP complete Dietary/Nutrition/Exercise Edu provided: Y During the course of the visit the patient was educated and counseled about appropriate screening and preventative services. Patient instructions were provided to the patient in written or electronic format. I have reviewed and verified the above information. Med review:Wonders about getting off losartan d/t leg swelling on 25mg --> HCTZ 25mg Daily Start Allopurinol decrease from 300mg to 200mg Will be having breast surgery, surgical consult 05/2024. Will need to have the area removed. Anxiety related to this is well controlled. Stress incont, mild, Treats occasional yeast w topical treatments Feels word finding worse after having COVID. Has a mole right upper back, present for years; has never had looked at by Derm. Plan: Refer to Derm Flu shot today RTO in 8 weeks to re-eval BP and lower ext edema w dc of losartan and start of hctz; monitor gout sx with taper in allopurinol Repeat labs ordered, to be done before next visit Next routine office visit in 6 months (August/September) This note is constructed using voice recognition software. While every effort has been made to ensure accuracy in head of music, still errors may have been included Sometimes, these errors may affect the content or meaning of the given sentence . An additional 20 was spent addressing the problem(s) noted at todays visit. This includes time spent before the visit reviewing the chart, time spent during the visit, and time spent after the visit on documentation [facility] Medical History Gout Anxiety and depression Asthma Osteoarthritis Diet-controlled type 2 diabetes mellitus Surgical History History of esophagogastroduodenoscopy (EGD) Hx of colonoscopy History of knee replacement procedure of right knee History of knee replacement procedure of left knee History of gastric surgery History of cholecystectomy Family History Father Hypertension Colon cancer Prostate cancer Mother No problems noted. 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: No Hearing needs: No Vision needs: Yes (Jeremias) Questionnaire Medicare Wellness Checkup [age] What gender do you identify with?: female During the past 4 weeks, how much have you been bothered by emotional problems such as feeling anxious, depressed, irritable, sad or downhearted, and blue?: moderately During the past 4 weeks, has your physical & emotional health limited your social activities with family, friends, neighbors, or groups?: not at all During the past 4 weeks, how much bodily pain have you generally had?: no pain During the past 4 weeks, was someone available to help you if you needed & wanted help?: yes, as much as I wanted During the past 4 weeks, what was the hardest physical activity you could do for at least 2 minutes?: very heavy Can you get to places out of walking distance without help? (For eg., can you travel alone on buses, taxis or drive your car?): Yes Can you go shopping for groceries or clothes without someone's help?: Yes Can you prepare your own meals?: Yes Can you do your housework without help?: Yes Because of any health problems, do you need the help of another person with your personal care needs such as eating, bathing, dressing or getting around the house?: No Can you handle your own money without help?: Yes During the past 4 weeks, how would you rate your health in general?: very good During the past 4 weeks how have things been going for you?: pretty well Are you having difficulties driving your car?: not applicable, I don't use a car Do you always fasten your seat belt when you are in a car?: yes, usually During past 4 weeks, have you been bothered by the following: never: Falling or dizzy when standing up, Sexual problems?, Trouble eating well?, Teeth or denture problems?, Problems using the telephone? and Tiredness or fatigue? Have you fallen 2 or more times in the past year?: Yes Are you afraid of falling?: Yes Are you a smoker?: no During the past 4 weeks, how many drinks of wine, beer, or other alcoholic beverages did you have?: 2-5 drinks per week Do you exercise for about 20 minutes 3 or more times a week?: yes, some of the time Have you been given information to help with the following?: no: Hazards in your house that might hurt you? and no: Keeping track of your medications? How often do you have trouble taking medicines the way you have been told to take them?: I always take medicine as prescribed How confident are you that you can control & manage most of your health problems?: very confident What is your race?: White Activity of Daily Living Bathing - sponge bath, tub bath or shower: receives no assistance (gets in/out by self, if usual bathing means Dressing - getting clothes from closets & drawers, including inner/outer garments & fasteners.: gets clothes & gets completely dressed without help Toileting - going to the 'toilet room' for urine/bowel elimination & cleaning self/arranging clothes: goes to toilet room, cleans self, arranges clothes without help Transfer: moves in & out of bed and chair without help (may use support object) Continence: controls urination/bowel movements completely by self Feeding: feeds self without help Total Score: 0 Information obtained from: patient Using telephone: independent Traveling: independent Shopping: independent Preparing meals: independent Housework: independent Taking medicine: independent Managing money: independent PHQ-9 Over the last 2 weeks, how often have you been bothered by any of the following problems? 1. Little interest or pleasure in doing things: not at all 2. Feeling down, depressed, or hopeless: not at all 3. Trouble falling or staying asleep, or sleeping too much: not at all 4. Feeling tired or having little energy: not at all 5. Poor appetite or overeating: not at all 6. Feeling bad about yourself - or that you are a failure or have let yourself or your family down: not at all 7. Trouble concentrating on things, such as reading the newspaper or watching television: not at all 8. Moving or speaking so slowly that other people could have noticed. Or the opposite - being so fidgety or restless that you have been moving around a lot more than usual: not at all 9. Thoughts that you would be better off or of hurting yourself in some way: not at all Total score: 0 Depression Screening Interpretation: Negative Depression Screening Done: Yes 35893 - PHQ-9 Billing: Yes Source: Developed by Drs. Ari Steen, Wendy Bashir, Ananda Bedolla and colleagues, with an educational derek from [employer]. Physical Exam Vital Signs: Last Vital Signs Pulse 79 03/12/24 10:38 Resp 15 03/12/24 10:38 BP 142/78 H 03/12/24 10:38 Pulse Ox 98 03/12/24 10:38 Oxygen Delivery Method Room Air 03/12/24 10:38 BMI result Body Mass Index 42.8 Const Other: On posterior back there is a raised thomas/dark brown saled skin lesion approx 1.5 cm irregular borders chronic vasc changes BLE, trace to +1 edema BLE Office Procedures EKG [id number], Complete Hearing Screen 42273 - Screening Test, pure tone, air only Flu Questionnaire Does the patient have a severe egg allergy?: No Does the patient have severe life threatening allergies?: No Does the patient have a fever or illness today?: No Has the patient ever had Guillain-[place] Syndrome?: No Has the patient ever had any past reaction to a flu shot?: No Vision Screening Right Eye: 20/25 Left Eye: 20/25 Bilateral: 20/25 Color: Pass Corrected: Pass (wearing glasses) 20067 - Vision Screening Immunizations Fluarix Triv [id number] (PF) 45 mcg (15 mcg x 3)/0.5 mL IM syringe Performing Provider: LIZZIE Thomas Performing Location: [facility] Administered by: Gertrude Atkins RN on 03/12/24 11:01 Dose Route Admin Location Dispensed Lot Number Expiration Date [facility] Telephonic Case Manager 0.5 mL IM Right Deltoid 0.5 mL [id number] 11/23/24 57425-761-78 [employer] VIS Given Date VIS Provided VIS Publication Date 03/12/24 Single Vaccine 20 Eligibility Eligibility Date Funding Source Not [facility] Eligible 03/12/24 Private Assessment & Plan Assessment & Plan (1) Intraductal papilloma with atypical ductal hyperplasia of breast: Comment: breast bx 02/25/24 managed by [facility] Specialists: Referred to Dr Pollard 06/02/24 Code(s): D24.9 - Benign neoplasm of unspecified breast; N60.99 - Unspecified benign mammary dysplasia of unspecified breast Plan: . (2) Hard of hearing: Code(s): H91.90 - Unspecified hearing loss, unspecified ear Plan: . (3) Gout: Comment: on allopurinol for years; discussed tapering off; not interested at this time. Code(s): M10.9 - Gout, unspecified Qualifiers: Gout site: foot Encounter type: sequela Chronicity: chronic Laterality: unspecified laterality Presence of tophus: without tophus Plan: . (4) Hyperlipidemia associated with type 2 diabetes mellitus: Comment: LDL goal < 70 simvastatin 40mg QD Code(s): E11.69 - Type 2 diabetes mellitus with other specified complication; E78.5 - Hyperlipidemia, unspecified Plan: . (5) Diabetes mellitus type 2 with complications: Comment: Diet controlled DME exam UTD Not on ACEI, was on ARB but this caused edema Code(s): E11.8 - Type 2 diabetes mellitus with unspecified complications Plan: .. (6) Diabetes type 2 with atherosclerosis of arteries of extremities: Comment: cont simvastatin 40mg QD Code(s): E11.51 - Type 2 diabetes mellitus with diabetic peripheral angiopathy without gangrene; I70.209 - Unspecified atherosclerosis of [place] arteries of extremities, unspecified extremity Plan: . (7) Diastolic heart failure: Comment: Echocardiogram 07/30/2023 shows mildly increased left ventricular wall thickness. Ejection fraction 58%. Grade 1 diastolic dysfunction. Left atrium is mildly dilated. Moderate posterior mitral annular calcification. Trace mitral valve regurg. Trace tricuspid valve regurg. Plan: STATIN, repeat echo 2025, sooner PRN, edu on s/sx of CHF Losartan 25 mg QD - caused edema; stop and start HCTZ 25 mg po QD Simvastatin 40mg QD Code(s): I50.30 - Unspecified diastolic (congestive) heart failure Qualifiers: Heart failure chronicity: chronic Qualified Code(s): I50.32 - Chronic diastolic (congestive) heart failure Plan: . (8) AV block, 1st degree: Comment: noted on ekg 03/12/24 edu to monitor for palpitations, change in breathing and report will do ekg annually Code(s): I44.0 - Atrioventricular block, first degree Plan: . (9) DNR (do not resuscitate): Code(s): Z66 - Do not resuscitate Plan: . (10) Atypical pigmented skin lesion: Code(s): L81.9 - Disorder of pigmentation, unspecified Plan: . Orders: Orders AMB EKG-In Office Today LIZZIE Thomas Z13.6 - Encounter for screening for cardiovascular disorders Hemoglobin A1c 04/26/24 LIZZIE Thomas E11.51 - Type 2 diabetes mellitus with diabetic peripheral angiopathy without gangrene, E11.69 - Type 2 diabetes mellitus with other specified complication, E11.8 - Type 2 diabetes mellitus with unspecified complications, E78.5 - Hyperlipidemia, unspecified, I50.32 - Chronic diastolic (congestive) heart failure, I70.209 - Unspecified atherosclerosis of [place] arteries of extremities, unspecified extremity, M10.9 - Gout, unspecified Microalbumin, Random (w Creat) [facility] - Type 2 diabetes mellitus with diabetic peripheral angiopathy without gangrene, E11.69 - Type 2 diabetes mellitus with other specified complication, E11.8 - Type 2 diabetes mellitus with unspecified complications, E78.5 - Hyperlipidemia, unspecified, I50.32 - Chronic diastolic (congestive) heart failure, I70.209 - Unspecified atherosclerosis of [place] arteries of extremities, unspecified extremity, M10.9 - Gout, unspecified TSH reflex Free T4 [facility] - Type 2 diabetes mellitus with diabetic peripheral angiopathy without gangrene, E11.69 - Type 2 diabetes mellitus with other specified complication, E11.8 - Type 2 diabetes mellitus with unspecified complications, E78.5 - Hyperlipidemia, unspecified, I50.32 - Chronic diastolic (congestive) heart failure, I70.209 - Unspecified atherosclerosis of [place] arteries of extremities, unspecified extremity, M10.9 - Gout, unspecified Influenza [id number] Immunization Today LIZZIE Thomas Z23 - Encounter for immunization Complete Blood Count no Diff 04/26/24 LIZZIE Thomas E11.51 - Type 2 diabetes mellitus with diabetic peripheral angiopathy without gangrene, E11.69 - Type 2 diabetes mellitus with other specified complication, E11.8 - Type 2 diabetes mellitus with unspecified complications, E78.5 - Hyperlipidemia, unspecified, I50.32 - Chronic diastolic (congestive) heart failure, I70.209 - Unspecified atherosclerosis of [place] arteries of extremities, unspecified extremity, M10.9 - Gout, unspecified Comprehensive [place]. Panel Fast [facility] - Type 2 diabetes mellitus with diabetic peripheral angiopathy without gangrene, E11.69 - Type 2 diabetes mellitus with other specified complication, E11.8 - Type 2 diabetes mellitus with unspecified complications, E78.5 - Hyperlipidemia, unspecified, I50.32 - Chronic diastolic (congestive) heart failure, I70.209 - Unspecified atherosclerosis of [place] arteries of extremities, unspecified extremity, M10.9 - Gout, unspecified IRON PROFILE [facility] - Type 2 diabetes mellitus with diabetic peripheral angiopathy without gangrene, E11.69 - Type 2 diabetes mellitus with other specified complication, E11.8 - Type 2 diabetes mellitus with unspecified complications, E78.5 - Hyperlipidemia, unspecified, I50.32 - Chronic diastolic (congestive) heart failure, I70.209 - Unspecified atherosclerosis of [place] arteries of extremities, unspecified extremity, M10.9 - Gout, unspecified Lipid Panel [facility] - Type 2 diabetes mellitus with diabetic peripheral angiopathy without gangrene, E11.69 - Type 2 diabetes mellitus with other specified complication, E11.8 - Type 2 diabetes mellitus with unspecified complications, E78.5 - Hyperlipidemia, unspecified, I50.32 - Chronic diastolic (congestive) heart failure, I70.209 - Unspecified atherosclerosis of [place] arteries of extremities, unspecified extremity, M10.9 - Gout, unspecified Vitamin B12 and Folate [facility]26[facility] - Type 2 diabetes mellitus with diabetic peripheral angiopathy without gangrene, E11.69 - Type 2 diabetes mellitus with other specified complication, E11.8 - Type 2 diabetes mellitus with unspecified complications, E78.5 - Hyperlipidemia, unspecified, I50.32 - Chronic diastolic (congestive) heart failure, I70.209 - Unspecified atherosclerosis of [place] arteries of extremities, unspecified extremity, M10.9 - Gout, unspecified Vitamin D 1,25 dihydroxy 04/26/[facility] - Type 2 diabetes mellitus with diabetic peripheral angiopathy without gangrene, E11.69 - Type 2 diabetes mellitus with other specified complication, E11.8 - Type 2 diabetes mellitus with unspecified complications, E78.5 - Hyperlipidemia, unspecified, I50.32 - Chronic diastolic (congestive) heart failure, I70.209 - Unspecified atherosclerosis of [place] arteries of extremities, unspecified extremity, M10.9 - Gout, unspecified Referrals Audiology Referral LEODAN ThomasJESSI H91.90 - Unspecified hearing loss, unspecified ear Dermatology Referral LIZZIE Thomas L81.9 - Disorder of pigmentation, unspecified Medications: New hydrochlorothiazide 25 mg PO DAILY 90 tabs 0RF CAMILLA ThomasP-JESSI allopurinol 200 mg PO DAILY 90 tabs 0RF LEODAN Thomas-JESSI Changed From ferrous fumarate 89 mg PO TID 3 months 270 tabs 1RF To ferrous fumarate 89 mg PO ONCE Teresa Saucedo NP Discontinued losartan Discontinued Reason: Doctor's Order 25 mg PO DAILY 90 tabs 1RF allopurinol Discontinued Reason: Doctor's Order 300 mg PO DAILY 90 tabs 0RF Z87.39 - Personal history of other diseases of the musculoskeletal system and connective tissue Quality Reporting (2019) Fall Risk Screening ([facility] 139) Last assessed Fall Risk: 03/12/24 Fall risk assessment: 2 + Falls in past year (Mechanical falls 2+ in 1 year, stopped taking benadryl and now moving slower. No fall since August 2023. ) Dementia Assessment ([facility] 149) Cognitive assessment recorded: Yes (6 CIT WNL ) Assessment of cognition with standardized tool: Yes Depression/Bipolar (159/160/161/177) PHQ-9: Total score: 0 Suicide risk assessment performed: Yes Ophthalmol:Cataracts Visual Acuity (133) Visual acuity exam performed: Yes (see below) Coding Level of Care Code Medicare First (G0438) Est Pt Level 3 (92910) Diagnoses Intraductal papilloma with atypical ductal hyperplasia of breast D24.9; N60.99 Hard of hearing H91.90 Gout M10.9 Gout site: foot Encounter type: sequela Chronicity: chronic Laterality: unspecified laterality Presence of tophus: without tophus Hyperlipidemia associated with type 2 diabetes mellitus E11.69; E78.5 Diabetes mellitus type 2 with complications E11.8 Diabetes type 2 with atherosclerosis of arteries of extremities E11.51; I70.209 Chronic diastolic heart failure I50.32 Heart failure chronicity: chronic AV block, 1st degree I44.0 DNR (do not resuscitate) Z66 Atypical pigmented skin lesion L81.9 CPT Codes Advance Care Planning - Advance Care Planning discussion: On file, no changes ([id number]) Advance Care Planning - Time spent: 1-15 minutes, on File ([id number]) EKG - CPT: [id number]-[id number], Complete ([id number]) Coding - Hearing Test Screenin - Screening Test, pure tone, air only ([id number]) Vision Screening - Vision Screenin - Vision Screening ([id number]) Advance Care Planning Advance Care Planning discussion: On file, no changes Date of discussion: 03/12/24 Forms completed: Health Care Proxy and MOLST Time spent: 1-15 minutes, on File Actual minutes spent: 10
[2024-03-12 10:38] VITALS: BP 142/78; PULSE 79; RESP 15; O2SAT 98; BMI 42.8
== END 2024-03-12 11:53 | disposition home or self-care (01) ==
PROVIDERS: PCP Nurse Practitioner Family; Visit Provider Nurse Practitioner Family
DX: Z00.00 Encounter for general adult medical examination without abnormal findings (principal); E11.69 Type 2 diabetes mellitus with other specified complication; E11.8 Type 2 diabetes mellitus with unspecified complications; E11.51 Type 2 diabetes mellitus with diabetic peripheral angiopathy without gangrene; I70.209 Unspecified atherosclerosis of native arteries of extremities, unspecified extremity; I50.32 Chronic diastolic (congestive) heart failure; D24.9 Benign neoplasm of unspecified breast; M10.9 Gout, unspecified; E78.5 Hyperlipidemia, unspecified; I44.0 Atrioventricular block, first degree; Z66 Do not resuscitate; Z23 Encounter for immunization

== ENCOUNTER → 2024-03-12 10:27 | Outpatient (BNVA) | payer MEDICARE, SELFPAY | PROVIDERS: PCP Nurse Practitioner Family; Visit Provider Nurse Practitioner Family | DX: Z23 Encounter for immunization (principal); D24.9 Benign neoplasm of unspecified breast; N60.99 Unspecified benign mammary dysplasia of unspecified breast; H91.90 Unspecified hearing loss, unspecified ear; M10.9 Gout, unspecified; E11.69 Type 2 diabetes mellitus with other specified complication; E78.5 Hyperlipidemia, unspecified; E11.51 Type 2 diabetes mellitus with diabetic peripheral angiopathy without gangrene; I70.209 Unspecified atherosclerosis of native arteries of extremities, unspecified extremity; I50.32 Chronic diastolic (congestive) heart failure; I44.0 Atrioventricular block, first degree; L81.9 Disorder of pigmentation, unspecified; Z66 Do not resuscitate; Z79.899 Other long term (current) drug therapy | CPT/HCPCS: 90471; 90656; 93005; 96127; 99212 ==

== ENCOUNTER 2024-04-07 13:07 | Outpatient (REF) | payer MEDICARE, SELFPAY | END 2024-04-07 13:08 | disposition home or self-care (01) | LOC: HO.SH 13:07 | PROVIDERS: Visit Provider Nurse Practitioner Family | DX: Z01.118 Encounter for examination of ears and hearing with other abnormal findings (principal); H91.93 Unspecified hearing loss, bilateral | CPT/HCPCS: 92557 ==

== ENCOUNTER 2024-05-04 09:17 | Outpatient (REF) | payer MEDICARE, SELFPAY ==
[2024-05-04 10:12] LABS: Hematocrit 40.4 % (37.0-47.0); Hemoglobin 13.1 g/dl (12.0-16.0); Mean Corpuscular HGB Conc 32.4 g/dl (31.0-35.0); Mean Corpuscular Hemoglobin 31.6 pg (27.0-33.0); Mean Corpuscular Volume 97.6 fL (80.0-98.0); Mean Platelet Volume 9.9 fL (9.4-12.3); Platelet Count 215 X10*3/uL (160-400); Red Blood Count 4.14 X10*6/uL (4.20-5.50); Red Cell Distribution Width 13.6 % (11.0-16.0); White Blood Count 7.1 X10*3/uL (4.8-10.8)
[2024-05-04 10:19] LABS: Estimated Average Glucose 134 mg/dL; Hemoglobin A1C 149.7612 umol/L; Hemoglobin A1c % 6.3 % (<6.0); Total Hemoglobin (HGBA1C) 3269.4216 umol/L
[2024-05-04 10:48] LABS: Creatinine Urine 69.62 mg/dL; Microalbumin Urine < 5.0 mg/L
[2024-05-04 11:02] LABS: Parathyroid Hormone Intact 122.7 pg/mL (8.7-77.1)
[2024-05-04 11:09] LABS: Alanine Aminotransferase 21 U/L (0-31); Alkaline Phosphatase 102 U/L (39-117); Anion Gap 10 (12-20); Aspartate Amino Transferase 26 U/L (5-31); Bilirubin Total 0.4 mg/dL (0.0-1.0); Blood Urea Nitrogen 12 mg/dL (9-16); Calcium 9.4 mg/dL (8.4-10.2); Carbon Dioxide 29 mmol/L (22-29); Chloride 106 mmol/L (96-108); Cholesterol 171 mg/dL (<200); Estimated Glomerular Filt Rate > 60; Glucose Fasting 144 mg/dL (60-99); HDL Cholesterol 74 mg/dL (>40); Iron 55 mcg/dL (30-160); LDL Cholesterol Calculated 83 mg/dL (<100); Percent Iron Saturation 19 % (15-50); Phosphorus 2.9 mg/dL (2.7-4.5); Potassium 3.3 mmol/L (3.3-5.1); Sodium 142 mmol/L (135-145); TSH reflex Free T4 2.34 uIU/mL (0.32-4.0); Total Iron Binding Capacity 286 mcg/dL (228-428); Total Protein 7.1 g/dL (6.5-8.0); Triglycerides 71 mg/dL (<150); Unsaturated Iron Binding 231 ug/dL
[2024-05-04 11:21] LABS: Folate 14.9 ng/mL (> or = 4.0); Vitamin B12 402 pg/mL (200-900)
[2024-05-05 15:23] LABS: Calcium, Ionized 5.2 mg/dL (4.7-5.5)
[2024-05-09 16:08] LABS: VITAMIN D (1,25 OH) D3 46 pg/mL; Vit D (1,25-Dihydroxy) Total 46 pg/mL (18-72); Vitamin D (1,25 OH) D2 <8 pg/mL
== END 2024-05-04 09:18 | disposition home or self-care (01) ==
LOC: HO.LAB 09:17
PROVIDERS: PCP Nurse Practitioner Family; Visit Provider Nurse Practitioner Family
DX: E83.52 Hypercalcemia (principal); E11.51 Type 2 diabetes mellitus with diabetic peripheral angiopathy without gangrene; I70.209 Unspecified atherosclerosis of native arteries of extremities, unspecified extremity; I50.32 Chronic diastolic (congestive) heart failure; M10.9 Gout, unspecified; E11.69 Type 2 diabetes mellitus with other specified complication; E78.5 Hyperlipidemia, unspecified
CPT/HCPCS: 36415; 80053; 80061; 82330; 82570; 82607; 82652; 82746; 83036; 83540; 83735; 83970; 84100; 84443; 85027

== ENCOUNTER 2024-05-08 12:27 | Outpatient (AMB) | payer MEDICARE, SELFPAY ==
--- NOTE | 2024-05-08 12:29 | A.OFFPC_ITS ---
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 Photoengraving Required: No Allergies amoxicillin [From AUGMENTIN] Allergy (Intermediate, Verified 05/08/24 12:30) HIVES cefazolin [From Ancef] Allergy (Intermediate, Verified 05/08/24 12:30) SOB Wheezing clavulanic acid [From AUGMENTIN] Allergy (Intermediate, Verified 05/08/24 12:30) HIVES vancomycin Allergy (Intermediate, Verified 05/08/24 12:30) SOB, wheezing Medication List - Last Reconciled 05/08/24 by Kanwal Marcos, FREELANCE MAKEUP ARTIST- albuterol sulfate 90 mcg/actuation 1 puff inhalation Q4H PRN allopurinol 300 mg PO DAILY bupropion HCl XL 300 mg PO QAM cetirizine 10 mg PO DAILY cholecalciferol (vitamin D3) 125 mcg PO DAILY 3 months clobetasol 0.05% 1 appl topical BEDTIME PRN coQ10 (ubiquinol) 200 mg PO DAILY 3 months escitalopram oxalate 20 mg PO DAILY ferrous fumarate 89 mg PO ONCE hydrochlorothiazide 25 mg PO DAILY lansoprazole 30 mg PO DAILY multivitamin (Daily Multi-Vitamin tablet) 1 tab PO DAILY 3 months nystatin (Nystop) 1 appl topical BID simvastatin 40 mg PO BEDTIME vitamin T38-xslaf acid 1,000-400 mcg daily sublingual daily; 1 month Tobacco use date assessed: 12/04/23 Dental Screening Dental Screen Date: 08/09/23 HPI HPI Comments History of Present Illness Details 68-year-old female with gout, anxiety, d epression, asthma, stress incont, lichen sclerosis osteoarthritis, diabetes type 2, diverticulosis, Jacobs's esophagus, hyperlipidemia, HFprEF (echo 07/2023), obesity, intraductal papiloma with atypical ductal hyperplasia of R breast, 1st degree AV block [place] coronary heart disease risk 16 (4% risk of heart disease in 10 years) Status post bilat knee replacement, gastric surgery, cholecystectomy Health maintenance: See [facility] preventative medicine assessment with personalized health plan and screening schedule. Colonoscopy 2022 with tubular adenoma repeat in 5 years (2027); EGD done at same time + Dejah Britton EGD January of 2023 repeat in 6-12 months Mammogram 08/2023 BI-RADS BI-RADS 2 - Benign Findings, 01/2024 R Breast dx mammo and US:done at [facility] intraductal papiloma with atypical ductal hyperplasia of R breast DM Eye exam 08/20/23 Negative for diabetic retinopathy, glaucoma suspect RTO [address] Reilly Vaccines: UTD on Flu 02/2024, Shingles 08/2022 & 01/2023, UTD COVID, RSV , needs PCV DEXA: declined AAA screen: NA EKG: Sinus rhythm with first-degree AV block US/US carotid duplex BILAT RI GHT: Minimal, non-hemodynamically significant stenosis of the proximal right internal carotid artery corresponding to a 0-49% stenosis by velocity criteria. LEFT: Normal left internal carotid artery without atherosclerotic plaque or hemodynamically significant stenosis. Echocardiogram 07/30/2023 shows mildly increased left ventricular wall thickness. Ejection fraction 58%. Grade 1 diastolic dysfunction. Left atrium is mildly dilated. Moderate posterior mitral annular calcification. Trace mitral valve regurg. Trace tricuspid valve regurg. 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 Last visit 2020. Would like to schedule appt. Optho - UTD on exams, cataract suspect, s/p cataract extraction bilat. . DM Eye exam 08/20/23 Negative for diabetic retinopathy, glaucoma suspect RTO [address] Reilly Breast Specialist @ [facility] Derm annual [place] [facility] The patient is a 68-year-old female presenting with hypertension, gout, and diabetes. At the last office visit her losartan was discontinued as it was causing edema of her lower legs and she was started on hydrochlorothiazide 25 mg which she has been taking as directed. She reports intermittent lower extremity swelling, which has improved with the initiation of a diuretic. We tried to reduce her allopurinol however she was not able to without experiencing gout symptoms. She self increased back to 300 mg. recent hemoglobin A1c measured 6.3% she is not currently on any diabetic medications She had her hearing test done which was normal. She is having her breast surgery on 06/16/2024. 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 She is scheduled for her EGD in June. She had a dermatology evaluation for an atypical skin lesion at [facility] and reports that this was normal. She was scheduled for a full-body exam. Her past medical history is notable for hyperlipidemia and mild hearing loss, recently evaluated and deemed normal. Recent tests showed an elevated parathyroid hormone, potentially due to vitamin D deficiency or thiazide d iuretic effect. EXAM Awake alert NAD Scleras nonicteric Carotid bruit bilat 2/6 systolic murmur, RSB, Regular Rate a nd Rythym LS CTAB chronic vasc changes BLE, trace edema BLE Results - Labs: A1c 6.3%, fasting glucose 144 mg /dL, elevated parathyroid hormone. - Tests and diagnostics: Hearing test no rmal. 04/2024 labs improved except ^ PTH, VIt d pending HCTZ needs to be held 2 weeks before lab draw; needs to be done fasting Plan - Continue allopurinol 300 mg for gout m anagement. - Discontinue hydrochlorothiazide given gout, poor bP controll and need to repeat PTH labs - Initiate omlmesartan 10mg po QD for bl ood pressure control. - Start Farxiga 5mg or an alternative S GLT2 inhibitor based on insurance for diabetes, heart protection, and potential weight loss. - Monitor lab results including kidney f unction and parathyroid hormone after discontinuing hydrochlorothiazide. - Follow-up for blood pressure managemen t three weeks prior to lab assessment. Can try to taper down/off allopurinol in the future. provided standing order for UA if urine sx arise on SGLT Patient was informed and verbally consented to the use of an ambient scribe for clinic note documentation during this visit. Discussion Notes During the visit, we extensively discussed the patient's hypertension, pre- diabetes, and gout management. I highlighted the risks, benefits, and potential alternatives to her current medication regimen, particularly addressing concerns regarding the recent elevation in her blood pressure and the potential side effects of hydrochlorothiazide. We considered the use of another ArB to mitigate blood pressure while providing some renal protective effects, which was not provided by the current diuretic. For diabetes management, farxiga was proposed to aid in blood sugar control and address heart failure symptoms, with an emphasis on the need to monitor potential side effects such as urinary tract infections and yeast infections. Patient Instructions - Discontinue hydrochlorothiazide. - Begin olmesartan as prescribed for blo od pressure management. - Start farxiga (SGLT2 inhibitor) for bl ood sugar and cardiovascular health. - Monitor blood pressure at home and judy ng data to the next appointment. - Stay hydrated and report any signs of infection immediately. - Schedule a follow-up appointment in . - Be aware of dietary intake to help con trol blood sugar levels and support weight loss. - Prepare for upcoming surgery on . - Notify me promptly through the patient portal if any new symptoms or concerns arise. Consent was obtained for this management plan. Follow-up was scheduled in three weeks for medication efficacy assessment and lab review. This note is constructed using voice recognition software. While every effort has been made to ensure accuracy in director of spa and guest experience, still errors may have been included Sometimes, these errors may affect the content or meaning of the given sentence . Total time spent caring for the patient today was 50 minutes. This includes time spent before the visit reviewing the chart, time spent during the visit, and time spent after the visit on documentation [facility] Medical History Gout Anxiety and depression Asthma Osteoarthritis Diet-controlled type 2 diabetes mellitus Surgical History History of esophagogastroduodenoscopy (EGD) Hx of colonoscopy History of knee replacement procedure of right knee History of knee replacement procedure of left knee History of gastric surgery History of cholecystectomy Family History Father Hypertension Colon cancer Prostate cancer Mother No problems noted. 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 1. Little interest or pleasure in doing things: not at all 2. Feeling down, depressed, or hopeless: not at all 3. Trouble falling or staying asleep, or sleeping too much: not at all 4. Feeling tired or having little energy: not at all 5. Poor appetite or overeating: several days 6. Feeling bad about yourself - or that you are a failure or have let yourself or your family down: not at all 7. Trouble concentrating on things, such as reading the newspaper or watching television: not at all 8. Moving or speaking so slowly that other people could have noticed. Or the opposite - being so fidgety or restless that you have been moving around a lot more than usual: not at all 9. Thoughts that you would be better off or of hurting yourself in some way: not at all Total score: 1 97112 - PHQ-9 Billing: Yes Source: Developed by Drs. Ari Steen, Wendy Bashir, Ananda Bedolla and colleagues, with an educational derek from [employer]. Thrive Questionnaire Date Thrive assessed: 05/08/24 I am a: Patient What is your living situation today?: I have a steady place to live Within the past 12 months, did the food you bought not last and you didn't have the money to get more?: Never true Within the past 12 months, did you worry whether your food would run out before you got money to buy more?: Never true Do you have trouble paying for medicines?: No Do you have trouble getting transportation to medical appointments?: No Do you have trouble paying your heating and electricity bill?: No Do you have trouble taking care of your child, family member or friend?: No Do you have trouble with day-to-day activities such as bathing, preparing meals, shopping, managing finances, etc.?: No Are you currently unemployed and looking for a job?: No Are you interested in more education?: No Please select the resources that you would like help with: None Currently or been in a relationship where the following occur: No concerns reported THRIVE Score: 0 AUDIT C Alcohol Use Questionnaire (AUDIT-C) 1. How often do you have a drink containing alcohol?: 2-3 times a week Total Score: 3 EMANI-7 AMB Questionnaire EMANI-7 Date EMANI - 7 assessed: 05/08/24 Feeling nervous, anxious, or on edge: 0 = Not at all Not being able to stop or control worryin = Not at all Worrying too much about different things: 0 = Not at all Trouble relaxin = Not at all Being so restless that it is hard to sit still: 0 = Not at all Becoming easily annoyed or irritable: 0 = Not at all Feeling afraid as if something awful might happen: 0 = Not at all Total EMANI-7 score (0-4 normal; 5-9 mild; 10-14 moderate; 15-21 severe): 0 Source: Developed by Drs. Ari Steen, Wendy Bashir, Ananda Bedolla and colleagues, with an educational derek from [employer]. EMANI-7 Assessment Billing EMANI-7 Assessment Tool: EMANI-7 Assessment 81275 Physical exam (Primary Care) Vital Signs: Last Vital Signs Temp 97 F 05/08/24 12:35 Pulse 61 05/08/24 12:35 Resp 14 05/08/24 12:35 BP 162/80 H 05/08/24 13:27 Pulse Ox 97 05/08/24 12:35 Oxygen Delivery Method Room Air 05/08/24 12:35 BMI result Body Mass Index 41.9 Tobacco/Smoking Status: Tobacco use Status Tobacco use date assessed 12/04/23 05/08/24 12:32 Patient Tobacco Use Status Former Tobacco user 05/08/24 12:32 e-Cigarette/Vaping Use Never Used 05/08/24 12:32 PHQ-9: PHQ-9 Score PHQ-9: Total score 1 05/08/24 18:40 Thrive Assessment: Date of Thrive Assessment Date Thrive assessed 05/08/24 05/08/24 12:32 Currently or been in a relationship where the following occur: No concerns reported Coding Level of Care Code Est Pt Level 5 (89076) Complex EM visit Add On G2211 Diagnoses Chronic diastolic heart failure I50.32 Heart failure chronicity: chronic Elevated parathyroid hormone R79.89 HTN (hypertension) I10 Edema of both lower extremities R60.0 Gout M10.9 Chronicity: chronic Encounter type: sequela Gout site: foot Laterality: unspecified laterality Presence of tophus: without tophus Intraductal papilloma with atypical ductal hyperplasia of breast D24.9; N60.99 Additional Codes EMANI-7 Assessment Billing - EMANI-7 Assessment Tool: EMANI-7 Assessment 00669 ([id number]) PHQ-9 - 64919 - PHQ-9 Billing: Yes ([id number]) Assessment & Plan Assessment & Plan (1) Diastolic heart failure: Comment: Echocardiogram 07/30/2023 shows mildly increased left ventricular wall thickness. Ejection fraction 58%. Grade 1 diastolic dysfunction. Left atrium is mildly dilated. Moderate posterior mitral annular calcification. Trace mitral valve regurg. Trace tricuspid valve regurg. Plan: STATIN, repeat echo 2025, sooner PRN, edu on s/sx of CHF Losartan 25 mg QD - caused edema; stop and start HCTZ 25 mg po QD; poor BP control, stop HCTZ start olmesartan 10mg Simvastatin 40mg QD Code(s): I50.30 - Unspecified diastolic (congestive) heart failure Category: Medical Qualifiers: Heart failure chronicity: chronic Qualified Code(s): I50.32 - Chronic diastolic (congestive) heart failure (2) Elevated parathyroid hormone: Code(s): R79.89 - Other specified abnormal findings of blood chemistry Category: Medical (3) HTN (hypertension): Code(s): I10 - Essential (primary) hypertension Category: Medical (4) Edema of both lower extremities: Code(s): R60.0 - Localized edema Category: Medical (5) Gout: Comment: on allopurinol for years; discussed tapering off; . Code(s): M10.9 - Gout, unspecified Category: Medical Qualifiers: Chronicity: chronic Encounter type: sequela Gout site: foot Laterality: unspecified laterality Presence of tophus: without tophus (6) Intraductal papilloma with atypical ductal hyperplasia of breast: Comment: breast bx 02/25/24 managed by [facility]: Referred to Dr Pollard 06/02/24 Code(s): D24.9 - Benign neoplasm of unspecified breast; N60.99 - Unspecified benign mammary dysplasia of unspecified breast Category: Medical Plan . Orders: Orders UA CC w/rflx Micro + Cult Today R30.0 - Dysuria Comprehensive [place]. Panel Fast 2 Weeks I50.32 - Chronic diastolic (congestive) heart failure, R79.89 - Other specified abnormal findings of blood chemistry Calcium, Ionized 2 Weeks I50.32 - Chronic diastolic (congestive) heart failure, R79.89 - Other specified abnormal findings of blood chemistry Parathyroid Hormone Intact 2 Weeks I50.32 - Chronic diastolic (congestive) heart failure, R79.89 - Other specified abnormal findings of blood chemistry Medications: New dapagliflozin propanediol (Farxiga) 5 mg PO DAILY 90 tabs 0RF olmesartan 10 mg (2 x 5 mg) PO DAILY 60 tabs 2RF Changed From allopurinol 300 mg PO DAILY To allopurinol 300 mg PO DAILY 90 tabs 2RF Discontinued hydrochlorothiazide Discontinued Reason: Doctor's Order 25 mg PO DAILY 90 tabs 0RF
[2024-05-08 12:35] VITALS: BP 162/72; PULSE 61; RESP 14; TEMP 36.1; O2SAT 97; BMI 41.9
[2024-05-08 13:27] VITALS: BP 162/80
== END 2024-05-08 13:42 | disposition home or self-care (01) ==
PROVIDERS: PCP Nurse Practitioner Family; Visit Provider Nurse Practitioner Family
DX: I50.32 Chronic diastolic (congestive) heart failure (principal); R79.89 Other specified abnormal findings of blood chemistry; I10 Essential (primary) hypertension; R60.0 Localized edema; M10.9 Gout, unspecified; D24.1 Benign neoplasm of right breast; N60.99 Unspecified benign mammary dysplasia of unspecified breast

== ENCOUNTER → 2024-05-08 12:27 | Outpatient (BNVA) | payer MEDICARE, SELFPAY | PROVIDERS: PCP Nurse Practitioner Family; Visit Provider Nurse Practitioner Family | DX: I11.0 Hypertensive heart disease with heart failure (principal); I50.32 Chronic diastolic (congestive) heart failure; R79.89 Other specified abnormal findings of blood chemistry; R60.0 Localized edema; M10.9 Gout, unspecified; D24.9 Benign neoplasm of unspecified breast; N60.99 Unspecified benign mammary dysplasia of unspecified breast | CPT/HCPCS: 96127; 99212 ==

== ENCOUNTER 2024-06-06 08:57 | Outpatient (REF) | payer MEDICARE, SELFPAY ==
[2024-06-06 09:46] LABS: Appearance Urine Clear; Color Urine Yellow; Glucose Urine UA >=1000 mg/dL (Negative); Leukocyte Esterase Urine Negative (Negative); Nitrite Urine Negative (Negative); PH 6.5 (5.0-9.0); UMIC TRIGGER UACC YES; Urine Blood Negative (Negative); Urine Ketones Negative (Negative); Urine Protein Negative (Neg-Trace)
[2024-06-06 09:57] LABS: Bacteria Urine None Seen (None Seen); Hyaline Casts Urine 0-2 /LPF (0-2); RBC Urine 0-2 /HPF (0-2); Squamous Epithelial Cell Urine 0-2 /HPF (0-2); WBC Urine 0-5 /HPF (0-5)
[2024-06-06 10:16] LABS: Alanine Aminotransferase 19 U/L (0-31); Albumin Level 4.1 g/dL (3.5-5.0); Alkaline Phosphatase 99 U/L (39-117); Anion Gap 10 (12-20); Aspartate Amino Transferase 24 U/L (5-31); Bilirubin Total 0.5 mg/dL (0.0-1.0); Blood Urea Nitrogen 11 mg/dL (9-16); Calcium 9.1 mg/dL (8.4-10.2); Carbon Dioxide 25 mmol/L (22-29); Chloride 109 mmol/L (96-108); Estimated Glomerular Filt Rate > 60; Glucose Fasting 145 mg/dL (60-99); Potassium 3.1 mmol/L (3.3-5.1); Sodium 141 mmol/L (135-145); Total Protein 7.1 g/dL (6.5-8.0)
[2024-06-06 10:19] LABS: Parathyroid Hormone Intact 88.3 pg/mL (8.7-77.1)
[2024-06-09 12:43] LABS: Calcium, Ionized 5.4 mg/dL (4.7-5.5)
== END 2024-06-06 08:58 | disposition home or self-care (01) ==
LOC: HO.LAB 08:57
PROVIDERS: PCP Nurse Practitioner Family; Visit Provider Nurse Practitioner Family
DX: R79.89 Other specified abnormal findings of blood chemistry (principal); I50.32 Chronic diastolic (congestive) heart failure
CPT/HCPCS: 36415; 80053; 81001; 82330; 83970

== ENCOUNTER 2024-06-08 12:36 | Outpatient (AMB) | payer MEDICARE, SELFPAY ==
--- NOTE | 2024-06-08 12:38 | A.OFFPC_ITS ---
Vital Signs 06/08/24 12:45 06/08/24 13:28 Height 5 ft 5 in Weight 250 lb BMI 41.6 BP 144/76 H 140/78 H Blood Pressure Location Rt brachial Lt brachial Position Sitting Sitting Respiration 14 Pulse 74 Pulse Source Pulse Oximeter Pulse Oximetry (%) 95 Oxygen Delivery Method Room Air Intake Visit Reasons: 3-4 weeks 30 min FU HTN, labs Farxiga, Olmesartan Intake Note: follow up on htn and labs. Patient also stop taking olmesartan because of swelling feet. 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 Required: No Allergies lisinopril Allergy (Severe, Verified 06/08/24 12:44) Cough losartan Allergy (Severe, Verified 06/08/24 12:44) Swelling olmesartan Allergy (Severe, Verified 06/08/24 12:44) Swelling amoxicillin [From AUGMENTIN] Allergy (Intermediate, Verified 06/08/24 12:39) HIVES cefazolin [From Ancef] Allergy (Intermediate, Verified 06/08/24 12:39) SOB Wheezing clavulanic acid [From AUGMENTIN] Allergy (Intermediate, Verified 06/08/24 12:39) HIVES vancomycin Allergy (Intermediate, Verified 06/08/24 12:39) SOB, wheezing Medication List - Last Reconciled 06/08/24 by Kanwal Marcos, TELEGRAPH INSTALLER- albuterol sulfate 90 mcg/actuation 1 puff inhalation Q4H PRN allopurinol 300 mg PO DAILY bupropion HCl XL 300 mg PO QAM cetirizine 10 mg PO DAILY cholecalciferol (vitamin D3) 125 mcg PO DAILY 3 months clobetasol 0.05% 1 appl topical BEDTIME PRN coQ10 (ubiquinol) 200 mg PO DAILY 3 months dapagliflozin propanediol (Farxiga) 10 mg (2 x 5 mg) PO DAILY escitalopram oxalate 20 mg PO DAILY ferrous fumarate 89 mg PO ONCE hydrochlorothiazide 25 mg PO DAILY lansoprazole 30 mg PO DAILY multivitamin (Daily Multi-Vitamin tablet) 1 tab PO DAILY 3 months nystatin (Nystop) 1 appl topical BID simvastatin 40 mg PO BEDTIME vitamin B37-pgzni acid 1,000-400 mcg daily sublingual daily; 1 month Tobacco use date assessed: 12/04/23 Dental Screening Dental Screen Date: 08/09/23 HPI HPI Comments History of Present Illness Details 68-year-old female with gout, anxiety, d epression, asthma, stress incont, lichen sclerosis osteoarthritis, diabetes type 2, diverticulosis, Jacobs's esophagus, hyperlipidemia, HFprEF (echo 07/2023), obesity, intraductal papiloma with atypical ductal hyperplasia of R breast, 1st degree AV block Diamond coronary heart disease risk 16 (4% risk of heart disease in 10 years) Status post bilat knee replacement, gastric surgery, cholecystectomy Health maintenance: See scanned preventative medicine assessment with personalized health plan and screening schedule. Colonoscopy 2022 with tubular adenoma repeat in 5 years (2027); EGD done at same time + Dejah Britton EGD January of 2023 repeat in 6-12 months Mammogram 08/2023 BI-RADS BI-RADS 2 - Benign Findings, 01/2024 R Breast dx mammo and US:done at [facility] intraductal papiloma with atypical ductal hyperplasia of R breast DM Eye exam 08/20/23 Negative for diabetic retinopathy, glaucoma suspect RTO [address] Reilly Vaccines: UTD on Flu 02/2024, Shingles 08/2022 & 01/2023, UTD COVID, RSV DEXA: declined AAA screen: NA EKG: Sinus rhythm with first-degree AV block US/US carotid duplex BILAT RI GHT: Minimal, non-hemodynamically significant stenosis of the proximal right internal carotid artery corresponding to a 0-49% stenosis by velocity criteria. LEFT: Normal left internal carotid artery without atherosclerotic plaque or hemodynamically significant stenosis. Echocardiogram 07/30/2023 shows mildly increased left ventricular wall thickness. Ejection fraction 58%. Grade 1 diastolic dysfunction. Left atrium is mildly dilated. Moderate posterior mitral annular calcification. Trace mitral valve regurg. Trace tricuspid valve regurg. Specialists/[place] of Care: GI visit Q 6 months due for repeat EGD, will call to schedule CONTRACT LEAD at [facility] last pap a few years ago, has Lichen sclerosis; has PRN clobetasol, uses for 1 week twice per day for infrequent flares. Last visit 2020. Would like to schedule appt. Optho - UTD on exams, cataract suspect, s/p cataract extraction bilat. . DM Eye exam 08/20/23 Negative for diabetic retinopathy, glaucoma suspect RTO [address] Reilly Breast Specialist @ [facility] Derm Presents today for close interim follow up of hypertension and bilateral lower extremity edema; recent medication adjustments including discontinuation of hydrochlorothiazide and initiation of olmesartan 10 mg and Farxiga 5 mg. The switch was due to persistent lower extremity edema, which resolved significantly after the change, although the swelling initially increased post-medication adjustment. There was a history of cough with lisinopril use, and recent attempts with ARBs have led to leg swelling, limiting options in that drug class. She has a history of gout therefore hydrochlorothiazide was discontinued. Three days after the start of olmesartan she developed worsening bilateral lower extremities. She discontinued and restarted herself on hydrochlorothiazide 25 mg and has been taking that since this time along with the Farxiga. Monitoring BP at home. Log reviewed, overall looks good SBP 130-140's. For type 2 diabetes mellitus, the patient was started on Farxiga for glucose control and additional organ protection. She reports no adverse reactions to Farxiga, and a recent urine analysis showed glucose, as expected. Her potassium levels have been low normal, possibly affected by recent medication changes, and her calcium levels are now stable, with ionized calcium pending. Gout management is ongoing with allopurinol, and the patient has not experienced recent flares, although hydrochlorothiazide poses potential risks to gout control. Obesity remains a concern, with the patient attempting weight maintenance and achieving some weight loss. Lichen sclerosus is managed with routine gynecologic evaluations. My pre op appointment is on 06/17/24 at 10:15am with Juvenal Joseph MD. My surgeon is Taniya Pollard MD, scheduled 06/23/24, with seed placement 06/22/24. - The patient has a history of undergoin g weight loss surgery and maintains a steady weight between 240-250 pounds. - She reports reducing her alcohol intak e significantly, substituting with tea. - Attempts to minimize intake of concent rated sweets. EXAM Awake alert NAD Scleras nonicteric 2/6 systolic murmur, RSB, Regular Rate a nd Rythym LS CTAB On posterior back there is a raised thomas/dark brown saled skin lesion approx 1.5 cm irregular borders chronic vasc changes BLE, trace edema BLE Results 04/2024 labs improved except ^ PTH, VIt d pending HCTZ needs to be held 2 weeks before lab draw; needs to be done fasting Labs from 06/06/2024 show hypokalemia 3.1, her potassium was 3.3 24120, normal renal function, fasting glucose 145, normal calcium, ionized calcium is pending, normal LFTs, normal protein, elevated PTH of 88.3 however improved as the last value was 122.7 May 04, urinalysis does show glucose however she is on an SGLT2 Plan - PTH is improving, cont vit d. - Continue with current medications, inc luding hydrochlorothiazide, with plans to increase Farxiga to 10 mg for better diabetes control and potential reduction in edema. - Monitor potassium levels, advising nut ritional strategies to avoid further declines. The hypokalemia is likely r/t the HCTZ - Continue gout management with allopuri nol. monitor for flares given HCTZ use. - Discuss further medication adjustments if necessary, especially regarding blood pressure and kidney protection, considering the adverse effects of ARBs and potential alternatives like beta blockers if required. Patient was informed and verbally consented to the use of an ambient scribe for clinic note documentation during this visit. Discussion Notes During the visit, I discussed the patient's current management plan, including the continuation of hydrochlorothiazide for now while increasing the dosage of Farxiga to see if it can further alleviate swelling and help with glucose control. The risks of hydrochlorothiazide to gout and potential adjustments depending on future lab results were covered. I detailed that we aim to maintain blood pressure under 140/90 mmHg and to improve swelling and weight management without exacerbating gout. We reviewed the importance of effectively monitoring blood pressure at home, using an appropriately sized cuff, and encouraged the patient to be vigilant about potassium levels through dietary intake and lab follow-up. Future appointments and necessary lab checks for her upcoming surgery were planned, with additional instructions for monitoring and adjusting treatment based on lab findings. Patient Instructions - Continue taking medications as prescri bed, including increased Farxiga dosage. - Monitor blood pressure once daily and record the readings. - Ensure a potassium-rich diet with at l east one potassium-rich food daily. - Monitor for any signs of gout flare-up s. - Complete lab work as advised prior to surgery. I will cc the labs to the Md - Follow up with all planned appointment s and notify if there are any new concerns or significant changes in symptoms. RTO in July for routine fu, sooner PRN This note is constructed using voice recognition software. While every effort has been made to ensure accuracy in multiple drill operator, still errors may have been included Sometimes, these errors may affect the content or meaning of the given sentence . Total time spent caring for the patient today was 50 minutes. This includes time spent before the visit reviewing the chart, time spent during the visit, and time spent after the visit on documentation [facility] Medical History Gout Anxiety and depression Asthma Osteoarthritis Diet-controlled type 2 diabetes mellitus Surgical History History of esophagogastroduodenoscopy (EGD) Hx of colonoscopy History of knee replacement procedure of right knee History of knee replacement procedure of left knee History of gastric surgery History of cholecystectomy Family History Father Hypertension Colon cancer Prostate cancer Mother No problems noted. 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 1. Little interest or pleasure in doing things: not at all 2. Feeling down, depressed, or hopeless: not at all 3. Trouble falling or staying asleep, or sleeping too much: not at all 4. Feeling tired or having little energy: not at all 5. Poor appetite or overeating: not at all 6. Feeling bad about yourself - or that you are a failure or have let yourself or your family down: not at all 7. Trouble concentrating on things, such as reading the newspaper or watching television: not at all 8. Moving or speaking so slowly that other people could have noticed. Or the opposite - being so fidgety or restless that you have been moving around a lot more than usual: not at all 9. Thoughts that you would be better off or of hurting yourself in some way: not at all Total score: 0 Depression Screening Interpretation: Negative Depression Screening Done: Yes 23867 - PHQ-9 Billing: Yes Source: Developed by Drs. Ari Steen, Wendy Bashir, Ananda Bedolla and colleagues, with an educational derek from [employer] Thrive Questionnaire Date Thrive assessed: 06/08/24 I am a: Patient What is your living situation today?: I have a steady place to live Within the past 12 months, did the food you bought not last and you didn't have the money to get more?: Never true Within the past 12 months, did you worry whether your food would run out before you got money to buy more?: Never true Do you have trouble paying for medicines?: No Do you have trouble getting transportation to medical appointments?: No Do you have trouble paying your heating and electricity bill?: No Do you have trouble taking care of your child, family member or friend?: No Do you have trouble with day-to-day activities such as bathing, preparing meals, shopping, managing finances, etc.?: No Are you currently unemployed and looking for a job?: No Are you interested in more education?: No Please select the resources that you would like help with: None Currently or been in a relationship where the following occur: No concerns reported THRIVE Score: 0 AUDIT C Alcohol Use Questionnaire (AUDIT-C) 1. How often do you have a drink containing alcohol?: 2-4 times a month 2. How many drinks containing alcohol do you have on a typical day when you are drinking?: 1 or 2 3. How often do you have six or more drinks on one occasion?: Never Total Score: 2 Score Reviewed/Action Taken: Yes EMANI-7 AMB Questionnaire EMANI-7 Date EMANI - 7 assessed: 06/08/24 Feeling nervous, anxious, or on edge: 0 = Not at all Not being able to stop or control worryin = Not at all Worrying too much about different things: 0 = Not at all Trouble relaxin = Not at all Being so restless that it is hard to sit still: 0 = Not at all Becoming easily annoyed or irritable: 0 = Not at all Feeling afraid as if something awful might happen: 0 = Not at all Total EMANI-7 score (0-4 normal; 5-9 mild; 10-14 moderate; 15-21 severe): 0 Source: Developed by Drs. Ari Steen, Wendy Bashir, Ananda Bedolla and colleagues, with an educational derek from [employer] EMANI-7 Assessment Billing EMANI-7 Assessment Tool: EMANI-7 Assessment 01998 Physical exam (Primary Care) Vital Signs: Last Vital Signs Pulse 74 06/08/24 12:45 Resp 14 06/08/24 12:45 BP 140/78 H 06/08/24 13:28 Pulse Ox 95 06/08/24 12:45 Oxygen Delivery Method Room Air 06/08/24 12:45 BMI result Body Mass Index 41.6 Tobacco/Smoking Status: Tobacco use Status Tobacco use date assessed 12/04/23 06/08/24 12:47 Patient Tobacco Use Status Former Tobacco user 06/08/24 12:47 e-Cigarette/Vaping Use Never Used 06/08/24 12:47 PHQ-9: PHQ-9 Score PHQ-9: Total score 0 06/08/24 13:19 Depression Screening Interpretation: Negative Thrive Assessment: Date of Thrive Assessment Date Thrive assessed 06/08/24 06/08/24 12:47 Currently or been in a relationship where the following occur: No concerns reported Coding Level of Care Code Est Pt Level 5 (78233) Complex EM visit Add On G2211 Diagnoses Primary hypertension I10 Hypertension type: primary hypertension Edema of both lower extremities R60.0 Hypokalemia E87.6 Elevated parathyroid hormone R79.89 Intraductal papilloma with atypical ductal hyperplasia of breast D24.9; N60.99 Hypercalcemia E83.52 Morbid (severe) obesity due to excess calories E66.01 Chronic diastolic heart failure I50.32 Heart failure chronicity: chronic Gout M10.9 Gout site: foot Encounter type: sequela Chronicity: chronic Laterality: unspecified laterality 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 Additional Codes EMANI-7 Assessment Billing - EMANI-7 Assessment Tool: EMANI-7 Assessment [id number] ([id number]) PHQ-9 - 29293 - PHQ-9 Billing: Yes ([id number]) Assessment & Plan Assessment & Plan (1) HTN (hypertension): Code(s): I10 - Essential (primary) hypertension Category: Medical Qualifiers: Hypertension type: primary hypertension Qualified Code(s): I10 - Essential (primary) hypertension (2) Edema of both lower extremities: Code(s): R60.0 - Localized edema Category: Medical (3) Hypokalemia: Comment: likely r/t hctz Code(s): E87.6 - Hypokalemia Category: Medical (4) Elevated parathyroid hormone: Code(s): R79.89 - Other specified abnormal findings of blood chemistry Category: Medical (5) Intraductal papilloma with atypical ductal hyperplasia of breast: Comment: breast bx 02/25/24 managed by [facility] Breast Specialists: Referred to Dr Pollard 06/02/24 Code(s): D24.9 - Benign neoplasm of unspecified breast; N60.99 - Unspecified benign mammary dysplasia of unspecified breast Category: Medical (6) Hypercalcemia: Code(s): E83.52 - Hypercalcemia Category: Medical Plan: resolved (7) Morbid (severe) obesity due to excess calories: Comment: BMI > 41 W/ comorbid conditions of HLD and CHF Code(s): E66.01 - Morbid (severe) obesity due to excess calories Category: Medical (8) Diastolic heart failure: Comment: Echocardiogram 07/30/2023 shows mildly increased left ventricular wall thickness. Ejection fraction 58%. Grade 1 diastolic dysfunction. Left atrium is mildly dilated. Moderate posterior mitral annular calcification. Trace mitral valve regurg. Trace tricuspid valve regurg. Plan: STATIN, repeat echo 2025, sooner PRN, edu on s/sx of CHF Losartan 25 mg QD - caused edema; stop and start HCTZ 25 mg po QD; poor BP control, stop HCTZ start olmesartan 10mg Simvastatin 40mg QD olmesartan caused edema - stop. Start HCTZ consider BB Code(s): I50.30 - Unspecified diastolic (congestive) heart failure Category: Medical Qualifiers: Heart failure chronicity: chronic Qualified Code(s): I50.32 - Chronic diastolic (congestive) heart failure (9) Gout: Comment: on allopurinol for years; discussed tapering off; . 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 Orders: Orders Complete Blood Count no Diff Today E87.6 - Hypokalemia, I10 - Essential (primary) hypertension, R60.0 - Localized edema IRON PROFILE Today E87.6 - Hypokalemia, I10 - Essential (primary) hypertension, R60.0 - Localized edema Comprehensive Met. Panel Today E87.6 - Hypokalemia, I10 - Essential (primary) hypertension, R60.0 - Localized edema Hemoglobin A1c Today E87.6 - Hypokalemia, I10 - Essential (primary) hypertension, R60.0 - Localized edema Vitamin B12 and Folate Today E87.6 - Hypokalemia, I10 - Essential (primary) hypertension, R60.0 - Localized edema Medications: Changed From dapagliflozin propanediol (Farxiga) 5 mg PO DAILY 90 tabs 0RF To dapagliflozin propanediol (Farxiga) 10 mg (2 x 5 mg) PO DAILY 90 tabs 0RF
[2024-06-08 12:45] VITALS: BP 144/76; PULSE 74; RESP 14; O2SAT 95; BMI 41.6
[2024-06-08 13:28] VITALS: BP 140/78
== END 2024-06-08 13:34 | disposition home or self-care (01) ==
PROVIDERS: PCP Nurse Practitioner Family; Visit Provider Nurse Practitioner Family
DX: I10 Essential (primary) hypertension (principal); E66.01 Morbid (severe) obesity due to excess calories; I50.32 Chronic diastolic (congestive) heart failure; Z68.41 Body mass index [BMI] 40.0-44.9, adult; R60.0 Localized edema; D24.9 Benign neoplasm of unspecified breast; E87.6 Hypokalemia; R79.89 Other specified abnormal findings of blood chemistry; N60.99 Unspecified benign mammary dysplasia of unspecified breast; E83.52 Hypercalcemia; M10.9 Gout, unspecified; N90.4 Leukoplakia of vulva

== ENCOUNTER → 2024-06-08 12:36 | Outpatient (BNVA) | payer MEDICARE, SELFPAY | PROVIDERS: PCP Nurse Practitioner Family; Visit Provider Nurse Practitioner Family | DX: I11.0 Hypertensive heart disease with heart failure (principal); I50.32 Chronic diastolic (congestive) heart failure; R60.0 Localized edema; E87.6 Hypokalemia; R79.89 Other specified abnormal findings of blood chemistry; D24.9 Benign neoplasm of unspecified breast; N60.99 Unspecified benign mammary dysplasia of unspecified breast; E83.52 Hypercalcemia; E66.01 Morbid (severe) obesity due to excess calories; M10.9 Gout, unspecified; N90.4 Leukoplakia of vulva | CPT/HCPCS: 96127; 99212 ==

== ENCOUNTER 2024-06-16 11:21 | Outpatient (REF) | payer MEDICARE, SELFPAY ==
[2024-06-16 11:43] LABS: Hematocrit 41.9 % (37.0-47.0); Hemoglobin 13.9 g/dl (12.0-16.0); Mean Corpuscular HGB Conc 33.2 g/dl (31.0-35.0); Mean Corpuscular Volume 96.5 fL (80.0-98.0); Mean Platelet Volume 9.8 fL (9.4-12.3); Platelet Count 216 X10*3/uL (160-400); Red Blood Count 4.34 X10*6/uL (4.20-5.50); Red Cell Distribution Width 13.4 % (11.0-16.0); White Blood Count 6.6 X10*3/uL (4.8-10.8)
[2024-06-16 11:51] LABS: Estimated Average Glucose 134 mg/dL; Hemoglobin A1C 163.3609 umol/L; Hemoglobin A1c % 6.3 % (<6.0)
[2024-06-16 12:43] LABS: Alanine Aminotransferase 20 U/L (0-31); Albumin Level 4.2 g/dL (3.5-5.0); Alkaline Phosphatase 108 U/L (39-117); Anion Gap 10 (12-20); Aspartate Amino Transferase 22 U/L (5-31); Bilirubin Total 0.5 mg/dL (0.0-1.0); Blood Urea Nitrogen 14 mg/dL (9-16); Carbon Dioxide 26 mmol/L (22-29); Chloride 107 mmol/L (96-108); Estimated Glomerular Filt Rate 57; Glucose Random 131 mg/dL (60-115); Iron 56 mcg/dL (30-160); Percent Iron Saturation 18 % (15-50); Potassium 3.2 mmol/L (3.3-5.1); Sodium 140 mmol/L (135-145); Total Iron Binding Capacity 305 mcg/dL (228-428); Total Protein 7.7 g/dL (6.5-8.0); Unsaturated Iron Binding 249 ug/dL
[2024-06-16 12:52] LABS: Appearance Urine Clear; Color Urine Yellow; Glucose Urine UA >=1000 mg/dL (Negative); Leukocyte Esterase Urine Trace (Negative); Nitrite Urine Negative (Negative); Specific Gravity - Urine 1.015 (1.005-1.025); UMIC TRIGGER UACC YES; Urine Blood Negative (Negative); Urine Ketones Negative (Negative); Urine Protein Negative (Neg-Trace)
[2024-06-16 13:14] LABS: Folate 18.2 ng/mL (> or = 4.0); Vitamin B12 418 pg/mL (200-900)
[2024-06-16 13:15] LABS: Bacteria Urine 2+ (None Seen); RBC Urine 0-2 /HPF (0-2); UACC Culture Trigger YES
== END 2024-06-16 11:22 | disposition home or self-care (01) ==
LOC: HO.LAB 11:21
PROVIDERS: PCP Nurse Practitioner Family; Visit Provider Nurse Practitioner Family
DX: R60.0 Localized edema (principal); E87.6 Hypokalemia; I10 Essential (primary) hypertension; R30.0 Dysuria; Z13.1 Encounter for screening for diabetes mellitus
CPT/HCPCS: 36415; 80053; 81001; 81003; 82607; 82746; 83036; 83540; 85027; 87086

== ENCOUNTER 2024-07-09 08:12 | Day surgery (SDC) | payer MEDICARE, SELFPAY ==
[2024-07-07 15:21] VITALS: BMI 41.6
--- NOTE | 2024-07-08 12:22 | P.CONAN_ITS ---
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 (Acute) Morbid (severe) obesity due to excess calories (Acute) Diastolic heart failure (Acute) Diabetes type 2 with atherosclerosis of arteries of extremities (Acute) ACP (advance care planning) (Acute) Anxiety (Acute) MDD (major depressive disorder) (Acute) Neuropathy (Acute) Bilateral carotid bruits (Acute) Cardiac murmur, previously undiagnosed (Acute) Diabetes mellitus type 2 with complications (Acute) S/P gastric surgery (Acute) Hyperlipidemia associated with type 2 diabetes mellitus (Acute) Jacobs's 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 (Acute) Hemorrhoids (Acute) Diverticulosis of colon (Acute) Tubular adenoma of colon (Acute) Colon cancer screening (Acute) Normal physical exam (Acute) Osteoarthritis involving multiple joints on both sides of body (Acute) Lichen sclerosus et atrophicus of the vulva (Acute) Asthma, mild intermittent, well-controlled (Acute) Gout (Acute) Past Medical History Medical History Diverticulosis Elevated cholesterol Arthritis Lichen sclerosus Neuropathy Anxiety Depression [place] (hard of hearing) Murmur First degree AV block HTN (hypertension) Gout Anxiety and depression Asthma Osteoarthritis Diet-controlled type 2 diabetes mellitus Family History Family History Father Hypertension Colon cancer Prostate cancer Mother No problems noted. Sister Breast cancer Other Mental health disorder Family history of problems with anesthesia: No Surgical History Surgical History History of esophagogastroduodenoscopy (EGD) Hx of colonoscopy History of knee replacement procedure of right knee History of knee replacement procedure of left knee History of gastric surgery History of cholecystectomy History of Problems with Anesthesia: No Social History Social History Household Members Other:: Housing: House Alcohol intake: current Alcohol intake frequency: holidays/special occasions only Alcohol type: wine Patient Tobacco Use Status: Former Tobacco user e-Cigarette/Vaping Use: Never Used Second Hand Smoke Exposure: No Use of substances other than those prescribed or required for medical reasons: No Advance Directives: No Advance Directives Information Provided: Yes service: No 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: No Hearing needs: No Vision needs: Yes ([place]) Meds Allergies Allergy/AdvReac Type Severity Reaction Status Date / Time lisinopril Allergy Severe Cough Verified 06/08/24 12:44 losartan Allergy Severe Swelling Verified 06/08/24 12:44 olmesartan Allergy Severe Swelling Verified 06/08/24 12:44 amoxicillin [From AUGMENTIN] Allergy Intermediate HIVES Verified 06/08/24 12:39 cefazolin [From Ancef] Allergy Intermediate SOB Verified 06/08/24 12:39 Wheezing clavulanic acid Allergy Intermediate HIVES Verified 06/08/24 12:39 [From AUGMENTIN] vancomycin Allergy Intermediate SOB, Verified 06/08/24 12:39 wheezing Home Medications ?Medication ?Instructions ?Recorded ?Confirmed ?Last Taken ?Type cetirizine 10 mg tablet 10 mg PO DAILY 07/26/22 07/07/24 Unknown History clobetasol 0.05 % topical cream 1 appl topical BEDTIME PRN lichen 03/12/24 07/07/24 Unknown History sclerosis ferrous fumarate 89 mg (29 mg 89 mg PO ONCE 03/12/24 07/07/24 Unknown History iron) tablet hydrochlorothiazide 25 mg tablet 25 mg PO DAILY 06/08/24 07/07/24 Unknown History Exam Height,Weight and Vital Signs: Height 5 ft 5 in Weight 113.398 kg Narrative Narrative: ECHO 2023 Conclusions: - The left ventricular systolic function is normal. The calculated ejection fraction is 58% by biplane method. - There is moderate posterior mitral annular calcification. EKG 2023 SR with 1st deg AV block Septal infarct Assessment and Plan Assessment Anesthesia Assessment: Chart Reviewed Final Anesthetic Review Family History of Problems with Anesthesia: No History of Problems with Anesthesia: No Documented by User: Sloane George MD 07/09/24 09:35 PMFSH Past Medical History Medical History Diverticulosis Elevated cholesterol Arthritis Lichen sclerosus Neuropathy Anxiety Depression [place] (hard of hearing) Murmur First degree AV block HTN (hypertension) Gout Anxiety and depression Asthma Osteoarthritis Diet-controlled type 2 diabetes mellitus Family History Family History Father Hypertension Colon cancer Prostate cancer Mother No problems noted. Sister Breast cancer Other Mental health disorder Surgical History Surgical History History of esophagogastroduodenoscopy (EGD) Hx of colonoscopy History of knee replacement procedure of right knee History of knee replacement procedure of left knee History of gastric surgery History of cholecystectomy Social History Social History Household Members Other:: Housing: House Alcohol intake: current Alcohol intake frequency: holidays/special occasions only Alcohol type: wine Patient Tobacco Use Status: Former Tobacco user e-Cigarette/Vaping Use: Never Used Second Hand Smoke Exposure: No Use of substances other than those prescribed or required for medical reasons: No Advance Directives: No Advance Directives Information Provided: Yes service: No 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: No Hearing needs: No Vision needs: Yes ([place]) Meds Allergies Allergy/AdvReac Type Severity Reaction Status Date / Time lisinopril Allergy Severe Cough Verified 06/08/24 12:44 losartan Allergy Severe Swelling Verified 06/08/24 12:44 olmesartan Allergy Severe Swelling Verified 06/08/24 12:44 amoxicillin [From AUGMENTIN] Allergy Intermediate HIVES Verified 06/08/24 12:39 cefazolin [From Ancef] Allergy Intermediate SOB Verified 06/08/24 12:39 Wheezing clavulanic acid Allergy Intermediate HIVES Verified 06/08/24 12:39 [From AUGMENTIN] vancomycin Allergy Intermediate SOB, Verified 06/08/24 12:39 wheezing Home Medications ?Medication ?Instructions ?Recorded ?Confirmed ?Last Taken ?Type cetirizine 10 mg tablet 10 mg PO DAILY 07/26/22 07/07/24 Unknown History clobetasol 0.05 % topical cream 1 appl topical BEDTIME PRN lichen 03/12/24 07/07/24 Unknown History sclerosis ferrous fumarate 89 mg (29 mg 89 mg PO ONCE 03/12/24 07/07/24 Unknown History iron) tablet hydrochlorothiazide 25 mg tablet 25 mg PO DAILY 06/08/24 07/07/24 Unknown History Exam Airway Mallampati Class: II TM Dist: >3cm Neck ROM: Full Heart: rrr Assessment and Plan Assessment Anesthesia Assessment: Anesthesia Plan Discussed Final Anesthetic Review NPO: Yes ASA Class: III Final Preanesthetic Review: No Changes in Pt Med Stat, Meds/Allgs Chart Reviewed, Consent Obtained/Reviewed and Anes Risks/Benef Reviewed Patient Risk: Intermediate Procedure Risk: Low Anesthetic Plan Anesthetic Plan: MAC: Disposition: Standard PACU
[2024-07-09 08:40] VITALS: PULSE 77; RESP 20; TEMP 36.2; O2SAT 95; BMI 42.6
--- NOTE | 2024-07-09 08:56 | P.HPSUR_ITS ---
Pre-Procedural Eval Section A - 24 Hr Update-Section A only Date of Service: 07/09/24 Section B - Complete if H&P > 30 days Chief Complaint: Jacobs's esophagus Relevant Family History (Specify if Yes): No Relevant Social History: None Present Medications: see Short Stay Collaborative assessment Medical History: Significant History (Diverticulosis Elevated cholesterol Arthritis Lichen sclerosus Neuropathy Anxiety Depression [place] (hard of hearing) Murmur First degree AV block HTN (hypertension) Gout Anxiety and depression Asthma Osteoarthritis Diet-controlled type 2 diabetes mellitus) History of Previous Operations: Relevant previous surgery/procedure and date(s) (History of esophagogastroduodenoscopy (EGD) Hx of colonoscopy History of knee replacement procedure of right knee History of knee replacement procedure of left knee History of gastric surgery History of cholecystectomy) Allergies: Allergies Allergy/AdvReac Type Severity Reaction Status Date / Time lisinopril Allergy Severe Cough Verified 06/08/24 12:44 losartan Allergy Severe Swelling Verified 06/08/24 12:44 olmesartan Allergy Severe Swelling Verified 06/08/24 12:44 amoxicillin [From AUGMENTIN] Allergy Intermediate HIVES Verified 06/08/24 12:39 cefazolin [From Ancef] Allergy Intermediate SOB Verified 06/08/24 12:39 Wheezing clavulanic acid Allergy Intermediate HIVES Verified 06/08/24 12:39 [From AUGMENTIN] vancomycin Allergy Intermediate SOB, Verified 06/08/24 12:39 wheezing Review of Systems Sugical H&P ROS: Negative: Constitution, Cardiovascular, Respiratory, Neurological, Psychiatric, Hem-Onc, Allergic/Immunologic, Gastrointestinal, Genitourinary, Musculoskeletal, Integumentary, Endocrine and Eyes/Ears/Nose/Throat Exam Surgical H&P Exam: Normal: HEENT, Normal: Heart, Normal: Lungs, Normal: Extremities, Normal: Abdomen, Normal: Skin and Normal: Neurological Plan Diagnosis/Plan: Unchanged I have reviewed the history and physical and performed a pertinent physical examination on my patient. No changes have occurred unless specified. Time Spent With Patient Time: Total time managing care of this patient today ____ minutes.
[2024-07-09 08:58] LABS: Glucose, Whole Blood 125 mg/dL (60-115)
[2024-07-09] MEDS: Lactated Ringers 1,000 ML 100 ML IVCONT (09:22)
--- NOTE | 2024-07-09 10:05 | W.PM.OPN ---
Operative Note Operative Note Date of Service: 07/09/24 Narrative: Procedure Description: EGD Indication: hx of barretts and hyperplastic polyp Anesthesia: MAC FLEXIBLE TRANSORAL UPPER GASTROINTESTINAL ENDOSCOPY UPPER ENDOSCOPY Consent: Indications for the procedure and potential complications of bleeding, perforation, reaction to medications and missed diagnosis were discussed with the patient and informed consent was obtained. Instrument: Olympus GIF H 190 J mid size upper endoscope Monitoring: Vital signs and clinical assessment, continuous EKG monitoring, Pulse oximetry, Carbon Dioxide monitoring and blood pressure monitoring were done throughout the procedure. Procedure: The patient was placed in the left lateral decubitis position and pre-procedure medications were administered and a bite block was placed. The endoscope was inserted into the mouth and advanced under direct vision to the third part of duodenum. A careful inspection was made as the upper endoscope was withdrawn including a retroflexed examination of the proximal stomach; Findings and interventions are described below. Findings: Larynx:normal Esophagus: GE junction at 37 cm, diaphragm hiatus at 40 cm, consistent with 3 cm sliding hiatal hernia, brushings taken from GEJ for WATS, also bx with cold forceps --LES v lax Stomach: patchy erythema . Biopsies were obtained. Grade 2 flap valve on retroflexed examination of the cardia. Duodenum: Normal bulb and descending duodenum, Intervention: Biopsies as noted above, brushings Impression/Findings: gastritis irregular Z line, patulous GEJ PLAN: cont with PPI GERD precautions
[2024-07-09 10:11] VITALS: BP 131/51; PULSE 70; RESP 16; TEMP 36.2; O2SAT 96
[2024-07-09 10:21] VITALS: BP 151/71; PULSE 69; RESP 16; TEMP 36.1; O2SAT 96
== END 2024-07-09 10:51 | disposition home or self-care (01) ==
PROVIDERS: PCP Nurse Practitioner Family; Visit Provider Internal Medicine Gastroenterology
PROC: 0DJ08ZZ Inspection of Upper Intestinal Tract, Via Natural or Artificial Opening Endoscopic (ICD-10-PCS; CPT 43235; principal; 2024-07-09 10:20)
DX: K22.70 Barrett's esophagus without dysplasia (principal); K29.50 Unspecified chronic gastritis without bleeding; K44.9 Diaphragmatic hernia without obstruction or gangrene; K22.89 Other specified disease of esophagus; F41.8 Other specified anxiety disorders; I10 Essential (primary) hypertension; E78.00 Pure hypercholesterolemia, unspecified; E11.9 Type 2 diabetes mellitus without complications; G62.9 Polyneuropathy, unspecified; J45.909 Unspecified asthma, uncomplicated; L90.0 Lichen sclerosus et atrophicus; M10.9 Gout, unspecified; Z79.899 Other long term (current) drug therapy; Z88.1 Allergy status to other antibiotic agents; Z88.8 Allergy status to other drugs, medicaments and biological substances; Z66 Do not resuscitate; Z98.890 Other specified postprocedural states; Z98.84 Bariatric surgery status; Z96.653 Presence of artificial knee joint, bilateral; Z87.891 Personal history of nicotine dependence
CPT/HCPCS: 43239; 82947; 88305; 88313; 88342; J2003; J2704

== ENCOUNTER → 2024-07-09 08:12 | Outpatient (BNV) | payer MEDICARE, SELFPAY | PROVIDERS: PCP Nurse Practitioner Family; Visit Provider Internal Medicine Gastroenterology | DX: K22.70 Barrett's esophagus without dysplasia (principal); K29.70 Gastritis, unspecified, without bleeding | CPT/HCPCS: 43239 ==

== ENCOUNTER 2024-08-07 08:31 | Outpatient (AMB) | payer MEDICARE, SELFPAY ==
--- NOTE | 2024-08-07 08:39 | MHC.PC.OV ---
Vital Signs 08/07/24 08:42 08/07/24 08:48 Height 5 ft 5 in Weight 254 lb 6 oz BMI 42.3 BP 154/82 H 146/84 H Blood Pressure Location Rt brachial Rt brachial Position Sitting Sitting Respiration 16 Pulse 71 Pulse Source Pulse Oximeter Pulse Oximetry (%) 97 Oxygen Delivery Method Room Air Intake Visit Reasons: August 23 min routine fu Intake Note: Follow up Director Of Integrated Marketing Required: No Allergies lisinopril Allergy (Severe, Verified 08/07/24 08:50) Cough losartan Allergy (Severe, Verified 08/07/24 08:50) Swelling olmesartan Allergy (Severe, Verified 08/07/24 08:50) Swelling amoxicillin [From AUGMENTIN] Allergy (Intermediate, Verified 08/07/24 08:50) HIVES cefazolin [From Ancef] Allergy (Intermediate, Verified 08/07/24 08:50) SOB Wheezing clavulanic acid [From AUGMENTIN] Allergy (Intermediate, Verified 08/07/24 08:50) HIVES vancomycin Allergy (Intermediate, Verified 08/07/24 08:50) SOB, wheezing Medication List - Last Reconciled 08/07/24 by Kanwal Marcos, [employer] MAINTAINER- albuterol sulfate 90 mcg/actuation 1 puff inhalation Q4H PRN allopurinol 300 mg PO DAILY bupropion HCl XL 300 mg PO QAM cetirizine 10 mg PO DAILY cholecalciferol (vitamin D3) 125 mcg PO DAILY 3 months clobetasol 0.05% 1 appl topical BEDTIME PRN coQ10 (ubiquinol) 200 mg PO DAILY 3 months escitalopram oxalate 20 mg PO DAILY ferrous fumarate 89 mg PO ONCE hydrochlorothiazide 25 mg PO DAILY lansoprazole 30 mg PO DAILY multivitamin (Daily Multi-Vitamin tablet) 1 tab PO DAILY 3 months nystatin (Nystop) 1 appl topical BID simvastatin 40 mg PO BEDTIME vitamin S09-trclr acid 1,000-400 mcg daily sublingual daily; 1 month Tobacco use date assessed: 08/07/24 Fall risk assessment: 2 + Falls in past year (3, hasn't fallen in almost a year) Last assessed Fall Risk: 08/07/24 Dental Screening Dental Screen Date: 08/07/24 Did you have a dental visit in the last 12 months?: Yes Did you have a dental problem in the last 6 months where you did not have access to dental care?: No Was dental information given to patient?: Patient has dentist HPI HPI Comments History of Present Illness Details 68-year-old female with gout, anxiety, depression, asthma, stress incont, lichen sclerosis osteoarthritis, diabetes type 2, diverticulosis, Jacobs's esophagus, hyperlipidemia, HFprEF (echo 07/2023), obesity, intraductal papiloma with atypical ductal hyperplasia of R breast, 1st degree AV block, elevated parathyroid, vit d def, obesity [place] coronary heart disease risk 16 (4% risk of heart disease in 10 years) Status post bilat knee replacement, gastric surgery, cholecystectomy, s/p R breast surgery 2024 Health maintenance: See scanned preventative medicine assessment with personalized health plan and screening schedule. Colonoscopy 2022 with tubular adenoma repeat in 5 years (2027); EGD done at same time + [place] Esoph [place] [facility] [place] ([place] Mammogram 08/2023 BI-RADS BI-RADS 2 - Benign Findings, 01/2024 R Breast dx mammo and US:done at [facility] intraductal papiloma with atypical ductal hyperplasia of R breast DM Eye exam 08/20/23 Negative for diabetic retinopathy, glaucoma suspect RTO [address] Reilly Vaccines: UTD on Flu 02/2024, Shingles 08/2022 & 01/2023, UTD COVID, RSV DEXA: declined AAA screen: NA EKG: Sinus rhythm with first-degree AV block US/US carotid duplex BILAT RIGHT: Minimal, non-hemodynamically significant stenosis of the proximal right internal carotid artery corresponding to a 0-49% stenosis by velocity criteria. LEFT: Normal left internal carotid artery without atherosclerotic plaque or hemodynamically significant stenosis. Echocardiogram 07/30/2023 shows mildly increased left ventricular wall thickness. Ejection fraction 58%. Grade 1 diastolic dysfunction. Left atrium is mildly dilated. Moderate posterior mitral annular calcification. Trace mitral valve regurg. Trace tricuspid valve regurg. Specialists/[place] of Care: GI visit Q 6 months due for repeat EGD, will call to schedule [facility] at [facility] last pap a few years ago, has Lichen sclerosis; has PRN clobetasol, uses for 1 week twice per day for infrequent flares. Last visit 2024, annual visits Optho - UTD on exams, cataract suspect, s/p cataract extraction bilat. . DM Eye exam 08/20/23 Negative for diabetic retinopathy, glaucoma suspect RTO [address] Reilly Breast Specialist @ [facility] + [facility] risk breast specialists Dec 2024 next visit Derm Here today for routine f/u of chronic conditions: - Type 2 Diabetes Mellitus was previously managed with Farxiga but discontinued due to severe urinary incontinence. Last HbA1c was 6.3, and she underwent a diabetic eye exam negative for retinopathy. Lichen sclerosis: recent [facility] visit. started back on estrogen cream - History of intraductal papilloma with atypical hyperplasia, currently under high-risk screening. Urine incont: worse with farxiga; stopped this has gone back to baseline HTN: w/o HCTZ for 3 weeks Barretts: [place] [facility] [place]aches: hx of sinusitis in the past. Can wake w/ them. has some fatigue. does not have dental pain at this time. EMANI/MDD: irritable and down; denies si/hi. Does not think med adjustment is required. HLD: on statin;had some dry mouth now using biotin with + effect Gout: on allopurinol, stable. EXAM Awake alert NAD Scleras nonicteric Dry cerumen L EAC unable to see TM, TM intact w/ mild congestion R Nares patent, turbinates wnl, no sinus tenderness w/ palpation pharynx wnl 2/6 systolic murmur, RSB, Regular Rate and Rythym LS CTAB chronic vasc changes BLE, trace edema BLE L hand dorsal surface raised thomas/[place] skin lesion w/ white crusting Results 04/2024 labs improved except ^ PTH, VIt d pending HCTZ needs to be held 2 weeks before lab draw; needs to be done fasting Labs from 06/06/2024 show hypokalemia 3.1, her potassium was 3.3 05/04/24, normal renal function, fasting glucose 145, normal calcium, ionized calcium is normal, normal LFTs, normal protein, elevated PTH of 88.3 however improved as the last value was 122.7 May 04, urinalysis does show glucose however she is on an SGLT2 Discussion Notes I discussed with the patient the management of her multiple chronic conditions including diabetes, hypertension, and cardiac health. We reviewed the risks and benefits of managing diabetes and hypertension with existing medications, particularly the discontinuation of Farxiga due to urinary incontinence. The discussion included restarting hydrochlorothiazide for hypertension and leg swelling, understood risks of gout, and attention to potassium levels. For her anxiety and depression, the current medication regimen will continue, and the patient did not feel any changes were necessary at this time. I emphasized the importance of monitoring blood pressure regularly and encouraged weight management through diet and exercise. We discussed previous abnormal mammogram findings and the plan for routine follow-ups, including participation in the high-risk screening program. A dermatology referral was recommended for a noted skin lesion. Follow-up for headaches and sinus issues will be contingent upon her response to resumed hypertension medication. Assessment and Plan 1. Type 2 Diabetes Mellitus: Manage through lifestyle changes, continue HbA1c monitoring. Avoid SGLT2 inhibitors due to adverse reactions. 2. Essential Hypertension: Restart hydrochlorothiazide 25 mg daily to manage hypertension and swelling. 3. Anxiety and Depression: Continue bupropion and escitalopram, review any mood changes. 4. Intraductal Papilloma with Atypical Ductal Hyperplasia: Follow up with high-risk screening; no immediate concern for recurrence. 5. Sinus Headaches: Address via anti-histamine regimen and monitor impact of resumed hydrochlorothiazide. 6. Lichen Sclerosus: Stable, ff'd by [facility] [employer] [facility] 7. Vitamin D Deficiency: Maintain oral supplementation. 8. Hyperlipidemia: Continue simvastatin, no change in management. 9. Heart Failure: Continue managing in collaboration with hypertension control. 10. Skin lesion L hand- derm referral Patient Instructions - restart hydrochlorothiazide 25 mg daily as prescribed. - Monitor blood pressure once a week and report any significant changes. - Continue current medication regimen for anxiety, depression, and other chronic conditions. - Follow up with dermatology for skin lesion examination. - Maintain routine physical activity as tolerated and adherence to dietary recommendations, focusing on reducing concentrated sugars. - Schedule an eye exam if not done within six months. - Contact the office if experiencing new or worsening symptoms, particularly related to headaches or sinus issues. Consent Patient was informed and verbally consented to the use of an ambient scribe for clinic note documentation during this visit. Total time spent caring for the patient today was 51 minutes. This includes time spent before the visit reviewing the chart, time spent during the visit, and time spent after the visit on documentation, reviewing laboratory results, diagnostic imaging, medications, performing a medically necessary evaluation, counseling on diagnoses, care coordination, ordering appropriate tests, ordering appropriate medications, review of tests performed by other providers, reporting test results with the patient, communication with other healthcare providers. RTO 3 MONTHS ROUTINE COMPLEX DZ MGMT PFSH Medical History Diverticulosis Elevated cholesterol Arthritis Lichen sclerosus Neuropathy Anxiety Depression [place] (hard of hearing) Murmur First degree AV block HTN (hypertension) Gout Anxiety and depression Asthma Osteoarthritis Diet-controlled type 2 diabetes mellitus Surgical History History of esophagogastroduodenoscopy (EGD) Hx of colonoscopy History of knee replacement procedure of right knee History of knee replacement procedure of left knee History of gastric surgery History of cholecystectomy Family History Father Hypertension Colon cancer Prostate cancer Mother No problems noted. 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: No Hearing needs: No Vision needs: Yes (Jeremias) Questionnaire Thrive Questionnaire Date Thrive assessed: 06/08/24 I am a: Patient What is your living situation today?: I have a steady place to live Within the past 12 months, did the food you bought not last and you didn't have the money to get more?: Never true Within the past 12 months, did you worry whether your food would run out before you got money to buy more?: Never true Do you have trouble paying for medicines?: No Do you have trouble getting transportation to medical appointments?: No Do you have trouble paying your heating and electricity bill?: No Do you have trouble taking care of your child, family member or friend?: No Do you have trouble with day-to-day activities such as bathing, preparing meals, shopping, managing finances, etc.?: No Are you currently unemployed and looking for a job?: No Are you interested in more education?: No Please select the resources that you would like help with: None Currently or been in a relationship where the following occur: No concerns reported THRIVE Score: 0 EMANI-7 AMB Questionnaire EMANI-7 Date EMANI - 7 assessed: 06/08/24 Source: Developed by Drs. Ari Steen, Wendy Bashir, Ananda Bedolla and colleagues, with an educational derek from [employer]. Physical exam (Primary Care) Vital Signs: Last Vital Signs Pulse 71 08/07/24 08:42 Resp 16 08/07/24 08:42 BP 146/84 H 08/07/24 08:48 Pulse Ox 97 08/07/24 08:42 Oxygen Delivery Method Room Air 08/07/24 08:42 BMI result Body Mass Index 42.3 Tobacco/Smoking Status: Tobacco use Status Tobacco use date assessed 08/07/24 08/07/24 08:49 Patient Tobacco Use Status Former Tobacco user 08/07/24 08:49 e-Cigarette/Vaping Use Never Used 08/07/24 08:49 Thrive Assessment: Date of Thrive Assessment Date Thrive assessed 06/08/24 08/07/24 08:40 Currently or been in a relationship where the following occur: No concerns reported Coding Level of Care Code Est Pt Level 5 (54024) Complex EM visit Add On G2211 Diagnoses Anxiety F41.9 Jacobs's 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 K22.70 Diabetes mellitus type 2 with complications E11.8 Diabetes type 2 with atherosclerosis of arteries of extremities E11.51; I70.209 Gout M10.9 Chronicity: chronic Encounter type: sequela Gout site: foot Laterality: unspecified laterality Presence of tophus: without tophus Primary hypertension I10 Hypertension type: primary hypertension Hyperlipidemia associated with type 2 diabetes mellitus E11.69; E78.5 Intraductal papilloma with atypical ductal hyperplasia of breast D24.9; N60.99 Mild episode of recurrent major depressive disorder F33.0 Active/Remission status: currently active Major depression episode severity: mild Major depression recurrence: recurrent Neuropathy G62.9 Chronic diastolic heart failure I50.32 Heart failure chronicity: chronic Edema of both lower extremities R60.0 Atypical pigmented skin lesion L81.9 Elevated parathyroid hormone R79.89 Lichen sclerosus et atrophicus of the vulva N90.4 Nonintractable headache, unspecified chronicity pattern, unspecified headache type R51.9 Headache type: unspecified Headache chronicity pattern: unspecified pattern Intractability: not intractable Assessment & Plan Assessment & Plan (1) Anxiety: Code(s): F41.9 - Anxiety disorder, unspecified Category: Medical (2) Jacobs's 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: Comment: [place] [facility] [place] prevacid Code(s): K22.70 - Jacobs's esophagus without dysplasia Category: Medical (3) Diabetes mellitus type 2 with complications: Comment: Diet controlled DME exam UTD Not on ACEI, was on ARB but this caused edema Code(s): E11.8 - Type 2 diabetes mellitus with unspecified complications Category: Medical (4) Diabetes type 2 with atherosclerosis of arteries of extremities: Comment: cont simvastatin 40mg QD Code(s): E11.51 - Type 2 diabetes mellitus with diabetic peripheral angiopathy without gangrene; I70.209 - Unspecified atherosclerosis of [place] arteries of extremities, unspecified extremity Category: Medical (5) Gout: Comment: on allopurinol for years; discussed tapering off; . Code(s): M10.9 - Gout, unspecified Category: Medical Qualifiers: Chronicity: chronic Encounter type: sequela Gout site: foot Laterality: unspecified laterality Presence of tophus: without tophus (6) HTN (hypertension): Code(s): I10 - Essential (primary) hypertension Category: Medical Qualifiers: Hypertension type: primary hypertension Qualified Code(s): I10 - Essential (primary) hypertension (7) Hyperlipidemia associated with type 2 diabetes mellitus: Comment: LDL goal < 70 simvastatin 40mg QD Code(s): E11.69 - Type 2 diabetes mellitus with other specified complication; E78.5 - Hyperlipidemia, unspecified Category: Medical (8) Intraductal papilloma with atypical ductal hyperplasia of breast: Comment: breast bx 02/25/24 managed by [facility]: Referred to Dr Pollard 06/02/24 Code(s): D24.9 - Benign neoplasm of unspecified breast; N60.99 - Unspecified benign mammary dysplasia of unspecified breast Category: Medical (9) MDD (major depressive disorder): Code(s): F32.9 - Major depressive disorder, single episode, unspecified Category: Medical Qualifiers: Active/Remission status: currently active Major depression episode severity: mild Major depression recurrence: recurrent Qualified Code(s): F33.0 - Major depressive disorder, recurrent, mild (10) Neuropathy: Comment: likely related to DM as b12 levels WNL. Fall risk edu provided Code(s): G62.9 - Polyneuropathy, unspecified Category: Medical (11) Diastolic heart failure: Comment: Echocardiogram 07/30/2023 shows mildly increased left ventricular wall thickness. Ejection fraction 58%. Grade 1 diastolic dysfunction. Left atrium is mildly dilated. Moderate posterior mitral annular calcification. Trace mitral valve regurg. Trace tricuspid valve regurg. Plan: STATIN, repeat echo 2025, sooner PRN, edu on s/sx of CHF Losartan 25 mg QD - caused edema; stop and start HCTZ 25 mg po QD; poor BP control, stop HCTZ start olmesartan 10mg Simvastatin 40mg QD olmesartan caused edema - stop. on HCTZ consider BB Code(s): I50.30 - Unspecified diastolic (congestive) heart failure Category: Medical Qualifiers: Heart failure chronicity: chronic Qualified Code(s): I50.32 - Chronic diastolic (congestive) heart failure (12) Edema of both lower extremities: Code(s): R60.0 - Localized edema Category: Medical (13) Atypical pigmented skin lesion: Comment: l hand referred to derm Code(s): L81.9 - Disorder of pigmentation, unspecified Category: Medical (14) Elevated parathyroid hormone: Comment: improved w vit d supplement Code(s): R79.89 - Other specified abnormal findings of blood chemistry Category: Medical (15) Lichen sclerosus et atrophicus of the vulva: Code(s): N90.4 - Leukoplakia of vulva Category: Medical (16) Headache: Code(s): R51.9 - Headache, unspecified Qualifiers: Headache type: unspecified Headache chronicity pattern: unspecified pattern Intractability: not intractable Qualified Code(s): R51.9 - Headache, unspecified Plan . Orders: Orders Hemoglobin A1c Today E11.51 - Type 2 diabetes mellitus with diabetic peripheral angiopathy without gangrene, E11.8 - Type 2 diabetes mellitus with unspecified complications, I10 - Essential (primary) hypertension, I50.32 - Chronic diastolic (congestive) heart failure, I70.209 - Unspecified atherosclerosis of [place] arteries of extremities, unspecified extremity, R60.0 - Localized edema Microalbumin, Random (w Creat) Today E11.51 - Type 2 diabetes mellitus with diabetic peripheral angiopathy without gangrene, E11.8 - Type 2 diabetes mellitus with unspecified complications, I10 - Essential (primary) hypertension, I50.32 - Chronic diastolic (congestive) heart failure, I70.209 - Unspecified atherosclerosis of [place] arteries of extremities, unspecified extremity, R60.0 - Localized edema Vitamin B12 and Folate Today E11.51 - Type 2 diabetes mellitus with diabetic peripheral angiopathy without gangrene, E11.8 - Type 2 diabetes mellitus with unspecified complications, I10 - Essential (primary) hypertension, I50.32 - Chronic diastolic (congestive) heart failure, I70.209 - Unspecified atherosclerosis of [place] arteries of extremities, unspecified extremity, R60.0 - Localized edema Comprehensive Met. Panel Today E11.51 - Type 2 diabetes mellitus with diabetic peripheral angiopathy without gangrene, E11.8 - Type 2 diabetes mellitus with unspecified complications, I10 - Essential (primary) hypertension, I50.32 - Chronic diastolic (congestive) heart failure, I70.209 - Unspecified atherosclerosis of [place] arteries of extremities, unspecified extremity, R60.0 - Localized edema Lipid Panel Today E11.51 - Type 2 diabetes mellitus with diabetic peripheral angiopathy without gangrene, E11.8 - Type 2 diabetes mellitus with unspecified complications, I10 - Essential (primary) hypertension, I50.32 - Chronic diastolic (congestive) heart failure, I70.209 - Unspecified atherosclerosis of [place] arteries of extremities, unspecified extremity, R60.0 - Localized edema Medications: New hydrochlorothiazide 25 mg PO DAILY 90 tabs 2RF
[2024-08-07 08:42] VITALS: BP 154/82; PULSE 71; RESP 16; O2SAT 97; BMI 42.3
[2024-08-07 08:48] VITALS: BP 146/84
== END 2024-08-07 09:23 | disposition home or self-care (01) ==
LOC: HO.HMCFM 08:32
PROVIDERS: PCP Nurse Practitioner Family; Visit Provider Nurse Practitioner Family
DX: E11.51 Type 2 diabetes mellitus with diabetic peripheral angiopathy without gangrene (principal); E11.8 Type 2 diabetes mellitus with unspecified complications; I70.209 Unspecified atherosclerosis of native arteries of extremities, unspecified extremity; E11.69 Type 2 diabetes mellitus with other specified complication; F33.0 Major depressive disorder, recurrent, mild; I50.32 Chronic diastolic (congestive) heart failure; F41.9 Anxiety disorder, unspecified; K22.70 Barrett's esophagus without dysplasia; M10.9 Gout, unspecified; I10 Essential (primary) hypertension; E78.5 Hyperlipidemia, unspecified; D24.9 Benign neoplasm of unspecified breast; N60.99 Unspecified benign mammary dysplasia of unspecified breast; G62.9 Polyneuropathy, unspecified; R60.0 Localized edema; L81.9 Disorder of pigmentation, unspecified; R79.89 Other specified abnormal findings of blood chemistry; N90.4 Leukoplakia of vulva; R51.9 Headache, unspecified

== ENCOUNTER → 2024-08-07 08:31 | Outpatient (BNVA) | payer MEDICARE, SELFPAY | PROVIDERS: PCP Nurse Practitioner Family; Visit Provider Nurse Practitioner Family | DX: F41.9 Anxiety disorder, unspecified (principal); K22.70 Barrett's esophagus without dysplasia; E11.51 Type 2 diabetes mellitus with diabetic peripheral angiopathy without gangrene; I70.209 Unspecified atherosclerosis of native arteries of extremities, unspecified extremity; M10.9 Gout, unspecified; E11.69 Type 2 diabetes mellitus with other specified complication; E78.5 Hyperlipidemia, unspecified; D24.9 Benign neoplasm of unspecified breast; N60.99 Unspecified benign mammary dysplasia of unspecified breast; F33.0 Major depressive disorder, recurrent, mild; G62.9 Polyneuropathy, unspecified; I11.0 Hypertensive heart disease with heart failure; I50.32 Chronic diastolic (congestive) heart failure; R60.0 Localized edema; R79.89 Other specified abnormal findings of blood chemistry; N90.4 Leukoplakia of vulva; R51.9 Headache, unspecified | CPT/HCPCS: 99212 ==

== ENCOUNTER 2024-10-10 08:43 | Outpatient (REF) | payer MEDICARE, SELFPAY ==
[2024-10-10 09:13] LABS: Estimated Average Glucose 143 mg/dL; Hemoglobin A1C 167.9394 umol/L; Hemoglobin A1c % 6.6 % (<6.0); Total Hemoglobin (HGBA1C) 3443.0431 umol/L
[2024-10-10 09:35] LABS: Alanine Aminotransferase 29 U/L (0-31); Albumin Level 4.1 g/dL (3.5-5.0); Alkaline Phosphatase 115 U/L (39-117); Anion Gap 11 (12-20); Aspartate Amino Transferase 24 U/L (5-31); Bilirubin Total 0.5 mg/dL (0.0-1.0); Blood Urea Nitrogen 11 mg/dL (9-16); Calcium 9.8 mg/dL (8.4-10.2); Carbon Dioxide 29 mmol/L (22-29); Chloride 106 mmol/L (96-108); Cholesterol 189 mg/dL (<200); Estimated Glomerular Filt Rate > 60; Glucose Random 144 mg/dL (60-115); HDL Cholesterol 74 mg/dL (>40); LDL Cholesterol Calculated 97 mg/dL (<100); Sodium 142 mmol/L (135-145); Total Protein 6.9 g/dL (6.5-8.0); Triglycerides 91 mg/dL (<150)
[2024-10-10 09:59] LABS: Microalbumin Urine < 5.0 mg/L
[2024-10-10 10:05] LABS: Folate 14.9 ng/mL (> or = 4.0); Vitamin B12 388 pg/mL (200-900)
== END 2024-10-10 08:44 | disposition home or self-care (01) ==
LOC: HO.LAB 08:43
PROVIDERS: PCP Nurse Practitioner Family; Visit Provider Nurse Practitioner Family
DX: E11.8 Type 2 diabetes mellitus with unspecified complications (principal); E11.51 Type 2 diabetes mellitus with diabetic peripheral angiopathy without gangrene; I70.209 Unspecified atherosclerosis of native arteries of extremities, unspecified extremity; I50.32 Chronic diastolic (congestive) heart failure; R60.0 Localized edema; I10 Essential (primary) hypertension
CPT/HCPCS: 36415; 80053; 80061; 82570; 82607; 82746; 83036

== ENCOUNTER 2024-10-13 11:33 | Outpatient (AMB) | payer MEDICARE, SELFPAY ==
--- NOTE | 2024-10-13 11:36 | A.OFFPC_ITS ---
Vital Signs 10/13/24 11:40 Height 5 ft 5 in Weight 252 lb 8 oz BMI 42.0 BP 122/70 Blood Pressure Location Lt brachial Position Sitting Respiration 12 Pulse 72 Pulse Source Pulse Oximeter Temp 97.4 F Temp Source Oral Pulse Oximetry (%) 99 Oxygen Delivery Method Room Air Intake Visit Reasons: Med change Intake Note: Follow up to review med Rubber Flap Cutter Required: No Allergies lisinopril Allergy (Severe, Verified 10/13/24 11:56) Cough losartan Allergy (Severe, Verified 10/13/24 11:56) Swelling olmesartan Allergy (Severe, Verified 10/13/24 11:56) Swelling amoxicillin [From AUGMENTIN] Allergy (Intermediate, Verified 10/13/24 11:56) HIVES cefazolin [From Ancef] Allergy (Intermediate, Verified 10/13/24 11:56) SOB Wheezing clavulanic acid [From AUGMENTIN] Allergy (Intermediate, Verified 10/13/24 11:56) HIVES vancomycin Allergy (Intermediate, Verified 10/13/24 11:56) SOB, wheezing Medication List - Last Reconciled 10/13/24 by Kanwal Marcos, [employer]- albuterol sulfate 90 mcg/actuation 1 puff inhalation Q4H PRN allopurinol 300 mg PO DAILY bupropion HCl XL 300 mg PO QAM cetirizine 10 mg PO DAILY cholecalciferol (vitamin D3) 125 mcg PO DAILY 3 months clobetasol 0.05% 1 appl topical BEDTIME PRN coQ10 (ubiquinol) 200 mg PO DAILY 3 months escitalopram oxalate 20 mg PO DAILY ferrous fumarate 89 mg PO ONCE hydrochlorothiazide 25 mg PO DAILY lansoprazole 30 mg PO DAILY losartan mg PO DAILY multivitamin (Daily Multi-Vitamin tablet) 1 tab PO DAILY 3 months nystatin (Nystop) 1 appl topical BID simvastatin 40 mg PO BEDTIME vitamin X18-cmuuc acid 1,000-400 mcg daily sublingual daily; 1 month Tobacco use date assessed: 10/13/24 Fall risk assessment: No Falls in past year Last assessed Fall Risk: 10/13/24 Dental Screening Dental Screen Date: 10/13/24 Did you have a dental visit in the last 12 months?: Yes Did you have a dental problem in the last 6 months where you did not have access to dental care?: No Was dental information given to patient?: Patient has dentist HPI HPI Comments History of Present Illness Details 69-year-old female with gout, anxiety, d epression, asthma, stress incont, lichen sclerosis osteoarthritis, diabetes type 2, diverticulosis, Jacobs's esophagus, hyperlipidemia, HFprEF (echo 07/2023), obesity, intraductal papiloma with atypical ductal hyperplasia of R breast, 1st degree AV block, elevated parathyroid, vit d def, obesity [place] coronary heart disease risk 16 (4% risk of heart disease in 10 years) Status post bilat knee replacement, gastric surgery, cholecystectomy, s/p R breast surgery 2024 Health maintenance: See scanned preventative medicine assessment with personalized health plan and screening schedule. Colonoscopy 2022 with tubular adenoma repeat in 5 years (2027); EGD done at same time + Barretts Esoph EGD 06/2024 with [facility] repeat in 5 years (2029) Mammogram 08/2023 BI-RADS BI-RADS 2 - Benign Findings, 01/2024 R Breast dx mammo and US:done at [facility] intraductal papiloma with atypical ductal hyperplasia of R breast DM Eye exam 08/20/23 Negative for diabetic retinopathy, glaucoma suspect RTO [address] Reilly Vaccines: UTD on Flu 02/2024, Shingles 08/2022 & 01/2023, UTD COVID, RSV DEXA: declined AAA screen: NA EKG: Sinus rhythm with first-degree AV block US/US carotid duplex BILAT RI GHT: Minimal, non-hemodynamically significant stenosis of the proximal right internal carotid artery corresponding to a 0-49% stenosis by velocity criteria. LEFT: Normal left internal carotid artery without atherosclerotic plaque or hemodynamically significant stenosis. Echocardiogram 07/30/2023 shows mildly increased left ventricular wall thickness. Ejection fraction 58%. Grade 1 diastolic dysfunction. Left atrium is mildly dilated. Moderate posterior mitral annular calcification. Trace mitral valve regurg. Trace tricuspid valve regurg. Specialists/[place] of Care: GI visit Q 6 months due for repeat EGD, will call to schedule [facility] at [facility] last pap a few years ago, has Lichen sclerosis; has PRN clobetasol, uses for 1 week twice per day for infrequent flares. Last visit 2024, annual visits Optho - UTD on exams, cataract suspect, s/p cataract extraction bilat. . DM Eye exam 08/20/23 Negative for diabetic retinopathy, glaucoma suspect RTO [address] Reilly Breast Specialist @ [facility] High risk breast specialists Dec 2024 next visit Derm - The patient is a 69-year-old female pr esenting with hypertension management as the primary reason for the visit, specifically related to hypertension management. She reports her blood pressure being measured in high 140s, leading to the resumption of losartan alongside hydrochlorothiazide to stabilize it. - Essential Hypertension: Blood pressure was previously noted to be in the high 140s, leading to adjustments in her medication. Home monitoring showed consistent high readings until medication adjustments. - Type 2 Diabetes Mellitus: HbA1c has in creased from 6.3% to 6.6%, which the patient attributes to dietary habits. She has since initiated an improved diet and increased physical activity. - Hyperlipidemia: Patient is currently o n atorvastatin. Recent laboratory results showed an improvement in cholesterol levels, with LDL decreasing. - Peripheral Edema: Limited to slight sw elling by midday, which decreases with elevation. - High Risk for Breast Cancer: Patient h as documented elevated risk and is following up with recommended screenings. EMANI/MDD: irritable and down; denies si/hi. Does not think med adjustment is required. Gout: on allopurinol, stable. ROS - Constitutional: Denies recent weight l oss; reports consistent weight around 250-254 pounds. - Cardiovascular: Reports improvement in blood pressure with current medications; denies chest pain. - Respiratory: Denies respiratory sympto ms. - Gastrointestinal: Denies abdominal katrina n. - Genitourinary: Denies current urinary issues; prior issues with Farxiga resolved. - Musculoskeletal: Denies current joint pains. - Neurological: Denies headaches or dizz iness. - Psychiatric: Reports improved mood sin ce last visit. - Endocrine: Reports adherence to diabet es medications. - Hematological: Denies recent bleeding issues. - Allergic/Immunologic: Denies new aller gies or intolerances. EXAM Awake alert NAD Scleras nonicteric 2/6 systolic murmur, RSB, Regular Rate a nd Rythym LS CTAB chronic vasc changes BLE, trace edema BLE L hand dorsal surface raised thomas/sierra skin lesion w/ white crusting - appt with Derm in November for this. Results - Labs 09/2024: HbA1c increased to 6.6% f rom 6.3%. Total cholesterol measured at 189 mg/dL, down from 228 mg/dL. LDL cholesterol reduced to 97 mg/dL. Discussion Notes I discussed with the patient the management and treatment options for her hypertension, diabetes, and hyperlipidemia. I advised that her current combination of medications is suitable for controlling her blood pressure, and we agreed that tracking her blood pressure at home remains important. We reviewed her HbA1c, acknowledging the slight increase but decided against reactive medication adjustments due to her motivation and dietary changes. We revised her cholesterol results again, reassuring her of significant improvements with atorvastatin. The benefits of continued regular follow-ups, dietary adherence, and lifestyle modifications were emphasized. I informed her about potential future appointments for evaluation and preventive screenings, including the mammogram and dermatology follow-up. The patient was also advised on various communication alternatives to facilitate more timely appointments should they be necessary in the future. A&P 1. Essential Hypertension Hypertension is controlled with hydrochlorothiazide and losartan, and home blood pressure monitoring is advised. 2. Type 2 Diabetes Mellitus Given the increase in HbA1c, continued focus on lifestyle modifications is planned to manage diabetes without additional medications at this time. 3. Hyperlipidemia Cholesterol levels have improved with atorvastatin, which will be continued; a 90-day refill has been prescribed. 4. Peripheral Edema Managed effectively with current treatments, including leg elevation, showing good results. 5. High Risk for Breast Cancer Follow-up for breast cancer surveillance is scheduled, ensuring timely screenings. Patient Instructions: - Continue taking blood pressure medicat ions as prescribed. - Monitor blood pressure at home regular ly. - Maintain current diet and exercise rou tines to assist in controlling diabetes. - Continue atorvastatin and refill it as needed. - Elevate legs when sitting or lying rowdy n to minimize edema. - Schedule and attend regular screenings and follow-up appointments. - RTO in Feb for sAWV sooner PRN Consent Patient was informed and verbally consented to the use of an ambient scribe for clinic note documentation during this visit. Total time spent caring for the patient today was 41 minutes. This includes time spent before the visit reviewing the chart, time spent during the visit, and time spent after the visit on documentation, reviewing laboratory results, diagnostic imaging, medications, performing a medically necessary evaluation, counseling on diagnoses, care coordination, ordering appropriate tests, ordering appropriate medications, review of tests performed by other providers, reporting test results with the patient, communication with other healthcare providers. [facility] Medical History Diverticulosis Elevated cholesterol Arthritis Lichen sclerosus Neuropathy Anxiety Depression [place] (hard of hearing) Murmur First degree AV block HTN (hypertension) Gout Anxiety and depression Asthma Osteoarthritis Diet-controlled type 2 diabetes mellitus Surgical History History of esophagogastroduodenoscopy (EGD) Hx of colonoscopy History of knee replacement procedure of right knee History of knee replacement procedure of left knee History of gastric surgery History of cholecystectomy Family History Father Hypertension Colon cancer Prostate cancer Mother No problems noted. 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 1. Little interest or pleasure in doing things: not at all 2. Feeling down, depressed, or hopeless: not at all 3. Trouble falling or staying asleep, or sleeping too much: not at all 4. Feeling tired or having little energy: not at all 5. Poor appetite or overeating: not at all 6. Feeling bad about yourself - or that you are a failure or have let yourself or your family down: not at all 7. Trouble concentrating on things, such as reading the newspaper or watching television: not at all 8. Moving or speaking so slowly that other people could have noticed. Or the opposite - being so fidgety or restless that you have been moving around a lot more than usual: not at all 9. Thoughts that you would be better off or of hurting yourself in some way: not at all Total score: 0 Depression Screening Interpretation: Negative Depression Screening Done: Yes 90190 - PHQ-9 Billing: Yes Source: Developed by Drs. Ari Steen, Wendy Bashir, Ananda Bedolla and colleagues, with an educational derek from [email or web address]. Thrive Questionnaire Date Thrive assessed: 10/13/24 I am a: Patient What is your living situation today?: I have a steady place to live Within the past 12 months, did the food you bought not last and you didn't have the money to get more?: Never true Within the past 12 months, did you worry whether your food would run out before you got money to buy more?: Never true Do you have trouble paying for medicines?: No Do you have trouble getting transportation to medical appointments?: No Do you have trouble paying your heating and electricity bill?: No Do you have trouble taking care of your child, family member or friend?: No Do you have trouble with day-to-day activities such as bathing, preparing meals, shopping, managing finances, etc.?: No Are you currently unemployed and looking for a job?: No Are you interested in more education?: No Please select the resources that you would like help with: None Currently or been in a relationship where the following occur: No concerns reported THRIVE Score: 0 EMANI-7 AMB Questionnaire EMANI-7 Date EMANI - 7 assessed: 10/13/24 Feeling nervous, anxious, or on edge: 0 = Not at all Not being able to stop or control worryin = Not at all Worrying too much about different things: 0 = Not at all Trouble relaxin = Not at all Being so restless that it is hard to sit still: 0 = Not at all Becoming easily annoyed or irritable: 0 = Not at all Feeling afraid as if something awful might happen: 0 = Not at all Total EMANI-7 score (0-4 normal; 5-9 mild; 10-14 moderate; 15-21 severe): 0 Source: Developed by Drs. Ari Steen, Wendy Bashir, Ananda Bedolla and colleagues, with an educational derek from [email or web address]. EMANI-7 Assessment Billing EMANI-7 Assessment Tool: EMANI-7 Assessment 22898 Physical exam (Primary Care) Vital Signs: Last Vital Signs Temp 97.4 F 10/13/24 11:40 Pulse 72 10/13/24 11:40 Resp 12 10/13/24 11:40 BP 122/70 10/13/24 11:40 Pulse Ox 99 10/13/24 11:40 Oxygen Delivery Method Room Air 10/13/24 11:40 BMI result Body Mass Index 42.0 Tobacco/Smoking Status: Tobacco use Status Tobacco use date assessed 10/13/24 10/13/24 11:39 Patient Tobacco Use Status Former Tobacco user 10/13/24 11:39 e-Cigarette/Vaping Use Never Used 10/13/24 11:39 PHQ-9: PHQ-9 Score PHQ-9: Total score 0 10/13/24 11:56 Depression Screening Interpretation: Negative Thrive Assessment: Date of Thrive Assessment Date Thrive assessed 10/13/24 10/13/24 11:39 Currently or been in a relationship where the following occur: No concerns reported Coding Level of Care Code Est Pt Level 5 (52660) Complex EM visit Add On G2211 Diagnoses Gout M10.9 Chronicity: chronic Encounter type: sequela Gout site: foot Laterality: unspecified laterality Presence of tophus: without tophus Hyperlipidemia associated with type 2 diabetes mellitus E11.69; E78.5 Diabetes mellitus type 2 with complications E11.8 Mild episode of recurrent major depressive disorder F33.0 Active/Remission status: currently active Major depression episode severity: mild Major depression recurrence: recurrent Diabetes type 2 with atherosclerosis of arteries of extremities E11.51; I70.209 Chronic diastolic heart failure I50.32 Heart failure chronicity: chronic Primary hypertension I10 Hypertension type: primary hypertension Anxiety F41.9 Edema of both lower extremities R60.0 Intraductal papilloma with atypical ductal hyperplasia of breast D24.9; N60.99 Additional Codes EMANI-7 Assessment Billing - EMANI-7 Assessment Tool: EMANI-7 Assessment 86714 ([id number]) PHQ-9 - 79388 - PHQ-9 Billing: Yes ([id number]) Assessment & Plan Assessment & Plan (1) Gout: Comment: on allopurinol for years; discussed tapering off; . Code(s): M10.9 - Gout, unspecified Category: Medical Qualifiers: Chronicity: chronic Encounter type: sequela Gout site: foot Laterality: unspecified laterality Presence of tophus: without tophus (2) Hyperlipidemia associated with type 2 diabetes mellitus: Comment: LDL goal < 70 simvastatin 40mg QD Code(s): E11.69 - Type 2 diabetes mellitus with other specified complication; E78.5 - Hyperlipidemia, unspecified Category: Medical (3) Diabetes mellitus type 2 with complications: Comment: Diet controlled DME exam UTD Not on ACEI, on arb Code(s): E11.8 - Type 2 diabetes mellitus with unspecified complications Category: Medical (4) MDD (major depressive disorder): Code(s): F32.9 - Major depressive disorder, single episode, unspecified Category: Medical Qualifiers: Active/Remission status: currently active Major depression episode severity: mild Major depression recurrence: recurrent Qualified Code(s): F33.0 - Major depressive disorder, recurrent, mild (5) Diabetes type 2 with atherosclerosis of arteries of extremities: Comment: cont simvastatin 40mg QD Code(s): E11.51 - Type 2 diabetes mellitus with diabetic peripheral angiopathy without gangrene; I70.209 - Unspecified atherosclerosis of [place] arteries of extremities, unspecified extremity Category: Medical (6) Diastolic heart failure: Comment: Echocardiogram 07/30/2023 shows mildly increased left ventricular wall thickness. Ejection fraction 58%. Grade 1 diastolic dysfunction. Left atrium is mildly dilated. Moderate posterior mitral annular calcification. Trace mitral valve regurg. Trace tricuspid valve regurg. Plan: STATIN, repeat echo 2025, sooner PRN, edu on s/sx of CHF Losartan 25 mg QD - caused edema; stop and start HCTZ 25 mg po QD; poor BP control, stop HCTZ start olmesartan 10mg Simvastatin 40mg QD olmesartan caused edema - stop. on HCTZ & restarted losartan w/o edema. Code(s): I50.30 - Unspecified diastolic (congestive) heart failure Category: Medical Qualifiers: Heart failure chronicity: chronic Qualified Code(s): I50.32 - Chronic diastolic (congestive) heart failure (7) HTN (hypertension): Code(s): I10 - Essential (primary) hypertension Category: Medical Qualifiers: Hypertension type: primary hypertension Qualified Code(s): I10 - Essential (primary) hypertension (8) Anxiety: Code(s): F41.9 - Anxiety disorder, unspecified Category: Medical (9) Edema of both lower extremities: Code(s): R60.0 - Localized edema Category: Medical (10) Intraductal papilloma with atypical ductal hyperplasia of breast: Comment: breast bx 02/25/24 managed by [facility]: Referred to Dr Pollard 06/02/24 Code(s): D24.9 - Benign neoplasm of unspecified breast; N60.99 - Unspecified benign mammary dysplasia of unspecified breast Category: Medical Plan . Orders: Orders Comprehensive Met. Panel 02/21/25 E11.51 - Type 2 diabetes mellitus with diabe tic peripheral angiopathy without gangrene, E11.69 - Type 2 diabetes mellitus with other specified complication, E11.8 - Type 2 diabetes mellitus with unspecified complications, E78.5 - Hyperlipidemia, unspecified, F33.0 - Major depressive disorder, recurrent, mild, I10 - Essential (primary) hypertension, I50.32 - Chronic diastolic (congestive) heart failure, I70.209 - Unspecified atherosclerosis of [place] arteries of extremities, unspecified extremity, M10.9 - Gout, unspecified Lipid Panel 02/21/25 E11.51 - Type 2 diabetes mellitus with diabetic peripheral angiopathy without gangrene, E11.69 - Type 2 diabetes mellitus with other specified complication, E11.8 - Type 2 diabetes mellitus with unspecified complications, E78.5 - Hyperlipidemia, unspecified, F33.0 - Major depressive disorder, recurrent, mild, I10 - Essential (primary) hypertension, I50.32 - Chronic diastolic (congestive) heart failure, I70.209 - Unspecified atherosclerosis of [place] arteries of extremities, unspecified extremity, M10.9 - Gout, unspecified Hemoglobin A1c 02/21/25 E11.51 - Type 2 diabetes mellitus with diabetic peripheral angiopathy without gangrene, E11.69 - Type 2 diabetes mellitus with other specified complication, E11.8 - Type 2 diabetes mellitus with unspecified complications, E78.5 - Hyperlipidemia, unspecified, F33.0 - Major depressive disorder, recurrent, mild, I10 - Essential (primary) hypertension, I50.32 - Chronic diastolic (congestive) heart failure, I70.209 - Unspecified atherosclerosis of [place] arteries of extremities, unspecified extremity, M10.9 - Gout, unspecified Microalbumin, Random (w Creat) 02/21/25 E11.51 - Type 2 diabetes mellitus with diabetic peripheral angiopathy without gangrene, E11.69 - Type 2 diabetes mellitus with other specified complication, E11.8 - Type 2 diabetes mellitus with unspecified complications, E78.5 - Hyperlipidemia, unspecified, F33.0 - Major depressive disorder, recurrent, mild, I10 - Essential (primary) hypertension, I50.32 - Chronic diastolic (congestive) heart failure, I70.209 - Unspecified atherosclerosis of [place] arteries of extremities, unspecified ext remity, M10.9 - Gout, unspecified TSH reflex Free T4 02/21/25 E11.51 - Type 2 diabetes mellitus with diabetic peripheral angiopathy without gangrene, E11.69 - Type 2 diabetes mellitus with other specified complication, E11.8 - Type 2 diabetes mellitus with unspecified complications, E78.5 - Hyperlipidemia, unspecified, F33.0 - Major depressive disorder, recurrent, mild, I10 - Essential (primary) hypertension, I50.32 - Chronic diastolic (congestive) heart failure, I70.209 - Unspecified atherosclerosis of [place] arteries of extremities, unspecified extremity, M10.9 - Gout, unspecified Vitamin B12 and Folate 02/21/25 E11.51 - Type 2 diabetes mellitus with diabetic peripheral angiopathy without gangrene, E11.69 - Type 2 diabetes mellitus with other specified complication, E11.8 - Type 2 diabetes mellitus with unspecified complications, E78.5 - Hyperlipidemia, unspecified, F33.0 - Major depressive disorder, recurrent, mild, I10 - Essential (primary) hypertension, I50.32 - Chronic diastolic (congestive) heart failure, I70.209 - Unspecified atherosclerosis of [place] arteries of extremities, unspecified extremity, M10.9 - Gout, unspecified Vitamin D 25-OH Total 02/21/25 E11.51 - Type 2 diabetes mellitus with diabetic peripheral angiopathy without gangrene, E11.69 - Type 2 diabetes mellitus with other specified complication, E11.8 - Type 2 diabetes mellitus with unspecified complications, E78.5 - Hyperlipidemia, unspecified, F33.0 - Major depressive disorder, recurrent, mild, I10 - Essential (primary) hypertension, I50.32 - Chronic diastolic (congestive) heart failure, I70.209 - Unspecified atherosclerosis of [place] arteries of extremities, unspecified extremity, M10.9 - Gout, unspecified Medications: New losartan 25 mg PO DAILY 90 tabs 2RF Refilled simvastatin 40 mg PO BEDTIME 90 tabs 2RF
[2024-10-13 11:40] VITALS: BP 122/70; PULSE 72; RESP 12; TEMP 36.3; O2SAT 99; BMI 42.0
== END 2024-10-13 12:26 | disposition home or self-care (01) ==
LOC: HO.HMCFM 11:34
PROVIDERS: PCP Nurse Practitioner Family; Visit Provider Nurse Practitioner Family
DX: E11.69 Type 2 diabetes mellitus with other specified complication (principal); E11.8 Type 2 diabetes mellitus with unspecified complications; E11.51 Type 2 diabetes mellitus with diabetic peripheral angiopathy without gangrene; I50.32 Chronic diastolic (congestive) heart failure; M10.9 Gout, unspecified; E78.5 Hyperlipidemia, unspecified; F33.0 Major depressive disorder, recurrent, mild; I70.209 Unspecified atherosclerosis of native arteries of extremities, unspecified extremity; I10 Essential (primary) hypertension; F41.9 Anxiety disorder, unspecified; R60.0 Localized edema

== ENCOUNTER → 2024-10-13 11:33 | Outpatient (BNVA) | payer MEDICARE, SELFPAY | PROVIDERS: PCP Nurse Practitioner Family; Visit Provider Nurse Practitioner Family | DX: M10.9 Gout, unspecified (principal); E11.69 Type 2 diabetes mellitus with other specified complication; E78.5 Hyperlipidemia, unspecified; F33.0 Major depressive disorder, recurrent, mild; E11.51 Type 2 diabetes mellitus with diabetic peripheral angiopathy without gangrene; I11.0 Hypertensive heart disease with heart failure; I50.32 Chronic diastolic (congestive) heart failure; F41.9 Anxiety disorder, unspecified; R60.0 Localized edema; D24.9 Benign neoplasm of unspecified breast; N60.99 Unspecified benign mammary dysplasia of unspecified breast | CPT/HCPCS: 96127; 99212 ==

== ENCOUNTER 2025-03-25 08:22 | Outpatient (REF) | payer MEDICARE, SELFPAY ==
--- OUTSIDE RECORDS SUMMARY | 2025-03-25 08:58 | XMS_ITS | Encounter Summary ---
Author Organization [facility] Address [address] [place] [address] [place] [phone] Phone Care Team Providers Care Senior Energy Consultant Name Role Phone Carlos Osuna MD Primary Care Provider [phone]- [phone] Reason for Referral * Physical Therapy (Elective) - Closed Specialty Diagnoses / Procedures Referred By Brian shaikh Referred To Contact Physical Therapy Diagnoses Osteoarthritis of both knees, unspecified osteoarthritis type System, Provider Not In, [facility] [id number] [place] [address] Physical Therapy [address] [place] [address] Phone: tel: fax: Referral ID Status Reason Start Date Expiration Date Visits Re quested Visits Authorized [id number] Closed 08/01/2017 05/26/2018 17 17 Encounter Details Date Type Department Care Team (Latest Contact Info) Description 08/01/2017 Transcribe Orders [facility] Physical Therapy [address] [place] [address] Piter Cruz PA [address] [place] [id number] [email or web address] Osteoarthritis of both knees, unspecified osteoarthritis type (Primary Dx) Social History Tobacco Use Types Packs/Day Years Used Date Smoking Tobacco: Never Assessed Comments Unknown Sex and Gender Information Value Date Recorded Sex Assigned at Not on file Legal Sex Female 7:51 PM EDT Gender Identity Not on file Sexual Orientation Not on file documented as of this encounter Plan of Treatment Scheduled Referrals Name Type Priority Associated Diagnoses Orde r Schedule Ambulatory referral to [facility] Physical Therapy Outpatient Referral Routine Osteoarthritis of both knees, unspecified osteoarthritis type Ordered: 08/01/2017 documented as of this encounter Visit Diagnoses Diagnosis Osteoarthritis of both knees, unspecified osteoarthritis type- Primary documented in this encounter Care Teams Senior Energy Consultant Relationship Specialty Start Date End Date Carlos Osuna MD [address] [place] [address] PCP - General Internal Medicine 05/13/17 documented as of this encounter Additional Source Comments The information contained in this document represents components of the legal health record. It is not the complete legal health record.[facility]
--- OUTSIDE RECORDS SUMMARY | 2025-03-25 08:58 | XMS_ITS | Clinical Summary ---
Author Organization [facility] Address [address] [place] [phone] Phone Care Team Providers Care Cylinder Dyer Name Role Phone Carlos Osuna MD Primary Care Provider [phone]- [phone] Allergies Active Allergy Reactions Criticality Noted Date Comments Amoxicillin-Pot Clavulanate Hives 05/13/20 17 Medications PROAIR HFA 90 mcg/actuation inhaler INHALE TWO PUFFS BY MOUTH FOUR TIMES A DAY 5 02/19/2017 Active allopurinol (ZYLOPRIM) 300 MG tablet Take 300 mg by mouth daily. 3 03/22/2017 Active valsartan (DIOVAN) 320 MG tablet Take 320 mg by mouth daily. 3 03/22/2017 Active escitalopram oxalate (LEXAPRO) 20 MG tablet Take 20 mg by mouth daily. 5 03/28/2017 Active SYMBICORT 160-4.5 mcg/actuation inhaler INHALE TWO PUFFS BY MOUTH TWICE A DAY 5 02/19/2017 Active cetirizine (ZYRTEC) 10 MG tablet Take 10 mg by mouth daily. Active multivitamin-min erals-lutein (CENTRUM SILVER) Tab Take 1 tablet by mouth daily. Active calcium-vitamin D3-vitamin K (VIACTIV) 1,250 mg (500 mg elemental)-500 unit-40 mcg Chew Take 1 tablet by mouth daily. Active calcium carbonate-vitami n D3 1,250 mg (500 mg elemental)-400 units Tab Take 1 tablet by mouth daily. Active cyanocobalamin (VIT B-12) 1000 MCG tablet Take 100 mcg by mouth daily. Active IRON,CARB/VIT C/VIT B12/FOLIC (IRON 100 PLUS ORAL) Take by mouth. Active bromfenac (BROMSITE) 0.075 % ophthalmic solution Place 1 drop into the left eye 2 (two) times a day. 1 Bottle 2 08/05/2017 Active ofloxacin (OCUFLOX) 0.3 % ophthalmic solution Place 1 drop into the left eye 4 (four) times a day. 5 mL 2 08/05/2017 Active prednisoLONE acetate (PRED FORTE) 1 % ophthalmic suspension Place 1 drop into the right eye 4 (four) times a day. 5 mL 2 08/05/2017 Active Active Problems Problem Noted Date Diagnosed Date Diabetes mellitus without complication 7 Asthma 05/13/2017 Social History Tobacco Use Types Packs/Day Years Used Date Smoking Tobacco: Never Assessed Education Answer Date Recorded Are you interested in more education? Not on woodrow e 09/21/2022 Are you concerned about learning? Not on file 09/21/2022 No 09/21/2022 No 09/21/2022 Digital Access Answer Date Recorded No 10/22/2022 No 10/22/2022 Reliable internet access at home? Not on file 10/22/2022 Device with a working camera? Not on file Comments Unknown Sex and Gender Information Value Date Recorded Sex Assigned at Not on file Legal Sex Female 7:51 PM EDT Gender Identity Not on file Sexual Orientation Not on file Last Filed Vital Signs Vital Sign Reading Time Taken Comments Blood Pressure 153/71 08/15/2017 10:51 AM EDT Pulse 62 08/15/2017 10:51 AM EDT Temperature 36.3 C (97.3 F) 08/15/2017 9:40 AM EDT Respiratory Rate 16 08/15/2017 10:51 AM EDT Oxygen Saturation 98% 08/15/2017 10:51 AM EDT Inhaled Oxygen Concentration - - Weight - - Height - - Body Mass Index - - Plan of Treatment Health Maintenance Due Date Last Done Comments Adult Td,Tdap Booster 1953 BLOOD PRESSURE 1953 CREATININE LEVEL 1953 HEMOGLOBIN A1C 1953 POTASSIUM LEVEL 1953 DEPRESSION SCREENING 1965 SMOKING Hx and SMOKELESS TOBACCO SCREENING 1966 HEPATITIS C SCREENING 08/23/1971 LIPID PANEL 08/23/1971 MAMMOGRAM 1993 COLOGUARD 1998 COLONOSCOPY 1998 COLORECTAL CANCER SCREENING 1998 FIT TEST 1998 FOBT 1998 SIGMOIDOSCOPY 1998 VIRTUAL COLONOSCOPY 1998 RSV VACCINE (1 - Risk 50-74 years 1-dose series) 08/23/2003 ZOSTER VACCINES (1 of 2) 08/23/2003 PNEUMOCOCCAL VACCINES (50+ years) (2 of 2 - PCV) 05/27/2010 05/27/2009 DIABETIC EYE EXAM 08/16/2018 08/16/2017, , 08/16/2017, Additional history exists OSTEOPOROSIS SCREENING INITIAL (ONE-TIME) 2018 INFLUENZA VACCINE (#1) 2024 , 02/23/2019, 05/27/2011, Additional history exists COVID-19 VACCINE ( season) 2025 09/16/2020, 08/25/2020 HEPATITIS A VACCINES Aged Out No long er eligible based on patient's age to complete this topic HIB VACCINES Aged Out No longer eligi ble based on patient's age to complete this topic MENINGOCOCCAL VACCINES (ACWY) Aged Out No longer eligible based on patient's age to complete this topic MENINGOCOCCAL VACCINES (B) Aged Out N o longer eligible based on patient's age to complete this topic Medical Devices Implanted Type Area Contact Center Team Lead Device Identifier Shelf Expiration Date Model / Serial / Lot Iol Soft[employer] Ao [id number] 20.5d-07/18/2017 Implanted:2017 (Quantity not on file) MEDLINE Iol [employer]port Ao [id number] 19.0d-08/15/2017 Implanted:2017 (Quantity not on file) MEDLINE [facility] [address] [place] [place] [address] [address] [place] [place] [address] [address] [place] [place] [address] [place], [place] [address] [place], [place] [address] Care Teams Cylinder Dyer Relationship Specialty Start Date End Date Carlos Osuna MD [address] [place] [address] PCP - General Internal Medicine 05/13/17 Additional Source Comments The information contained in this document represents components of the legal health record. It is not the complete legal health record.[facility]
[2025-03-25 10:21] LABS: Alanine Aminotransferase 19 U/L (0-31); Albumin Level 4.2 g/dL (3.5-5.0); Alkaline Phosphatase 121 U/L (39-117); Anion Gap 11 (12-20); Aspartate Amino Transferase 22 U/L (5-31); Blood Urea Nitrogen 11 mg/dL (9-16); Calcium 9.4 mg/dL (8.4-10.2); Carbon Dioxide 29 mmol/L (22-29); Chloride 106 mmol/L (96-108); Cholesterol 171 mg/dL (<200); Estimated Glomerular Filt Rate > 60; HDL Cholesterol 68 mg/dL (>40); Potassium 4.4 mmol/L (3.3-5.1); Sodium 142 mmol/L (135-145); Total Protein 6.8 g/dL (6.5-8.0); Triglycerides 96 mg/dL (<150)
[2025-03-25 10:47] LABS: Folate 13.7 ng/mL (> or = 4.0); Vitamin B12 1423 pg/mL (200-900)
[2025-03-25 11:30] LABS: Appearance Urine Clear; Glucose Urine UA Negative (Negative); PH 7.0 (5.0-9.0); Specific Gravity - Urine 1.010 (1.005-1.025); UMIC TRIGGER UACC YES
== END 2025-03-25 08:23 | disposition home or self-care (01) ==
LOC: HO.LAB 08:22
PROVIDERS: PCP Nurse Practitioner Family; Visit Provider Nurse Practitioner Family
DX: I11.0 Hypertensive heart disease with heart failure (principal); E11.51 Type 2 diabetes mellitus with diabetic peripheral angiopathy without gangrene; I50.32 Chronic diastolic (congestive) heart failure; E11.69 Type 2 diabetes mellitus with other specified complication; I70.209 Unspecified atherosclerosis of native arteries of extremities, unspecified extremity; M10.9 Gout, unspecified; E78.5 Hyperlipidemia, unspecified; F33.0 Major depressive disorder, recurrent, mild; I10 Essential (primary) hypertension; Z13.21 Encounter for screening for nutritional disorder
CPT/HCPCS: 36415; 80053; 80061; 81001; 81003; 82043; 82306; 82570; 82607; 82746; 83036; 84443

== ENCOUNTER 2025-03-26 12:05 | Outpatient (AMB) | payer MEDICARE, SELFPAY ==
--- NOTE | 2025-03-26 12:11 | A.OFFVIS_ITS ---
Intake Vital Signs 03/26/25 12:13 Height 5 ft 5 in Weight 254 lb BMI 42.3 BP 116/82 Blood Pressure Location Lt brachial Position Sitting Respiration 16 Pulse 77 Pulse Source Pulse Oximeter Temp 98.1 F Temp Source Oral Pulse Oximetry (%) 94 Oxygen Delivery Method Room Air Intake Visit Reasons: feb Intake Note: Medical well visit [facility] Required: No Allergies lisinopril Allergy (Severe, Verified 03/26/25 12:11) Cough olmesartan Allergy (Severe, Verified 03/26/25 12:11) Swelling amoxicillin (From AUGMENTIN) Allergy (Intermediate, Verified 03/26/25 12:11) HIVES cefazolin (From Ancef) Allergy (Intermediate, Verified 03/26/25 12:11) SOB Wheezing clavulanic acid (From AUGMENTIN) Allergy (Intermediate, Verified 03/26/25 12:11) HIVES vancomycin Allergy (Intermediate, Verified 03/26/25 12:11) SOB, wheezing Medication List - Last Reconciled 03/26/25 by Kanwal Marcos [facility]- albuterol sulfate 90 mcg/actuation 1 puff inhalation Q4H PRN allopurinol 300 mg PO DAILY bupropion HCl XL 300 mg PO QAM cetirizine 10 mg PO DAILY cholecalciferol (vitamin D3) 125 mcg PO DAILY 3 months clobetasol 0.05% 1 appl topical BEDTIME PRN coQ10 (ubiquinol) 200 mg PO DAILY 3 months escitalopram oxalate 20 mg PO DAILY ferrous fumarate 89 mg PO ONCE hydrochlorothiazide 25 mg PO DAILY lansoprazole 30 mg PO DAILY losartan 25 mg PO DAILY multivitamin (Daily Multi-Vitamin tablet) 1 tab PO DAILY 3 months nystatin (Nystop) 1 appl topical BID simvastatin 40 mg PO BEDTIME vitamin [id number] acid 1,000-400 mcg daily sublingual daily; 1 month HPI HPI Comments History of Present Illness Details Here today for AWV. The Medicare Annual Wellness Visit (AWV) is a yearly appointment with a health professional to identify health risks and help reduce them and to create or update a personalized prevention plan. During a Medicare AWV, health professionals should also review any current opioid prescriptions, detect any cognitive impairment, and establish or update medical and family history. 69-year-old female with gout, anxiety, d epression, asthma, stress incont, lichen sclerosis osteoarthritis, diabetes type 2, diverticulosis, Jacobs's esophagus, hyperlipidemia, HFprEF (echo 07/2023), obesity, intraductal papiloma with a typical ductal hyperplasia of R breast, 1st degree AV block, elevated parathyroid, vit d def, obesity [place] coronary heart disease risk 16 (4% risk of heart disease in 10 years) Status post bilat knee replacement, gastric surgery, cholecystectomy, s/p R breast surgery 2024 Health maintenance: See scanned preventative medicine assessment with personalized health plan and screening schedule. Colonoscopy 2022 with tubular adenoma repeat in 5 years (2027); EGD done at same time + [facility] Esoph EGD 06/2024 with [facility] repeat in 5 years (2029) Mammogram 08/2023 BI-RADS BI-RADS 2 - Benign Findings, 01/2024 R Breast dx mammo and US:done at [facility] intraductal papiloma with atypical ductal hyperplasia of R breast Has appt next week for repeat [facility] DM Eye exam 08/20/23 Negative for diabetic retinopathy, glaucoma suspect RTO [address] Reilly has had exams in 2024 Vaccines: UTD on Flu 02/2025, Shingles 08/2022 & 01/2023, UTD COVID, RSV DEXA: declined AAA screen: NA EK US/US carotid duplex BILAT RI GHT: Minimal, non-hemodynamically significant stenosis of the proximal right internal carotid artery corresponding to a 0-49% stenosis by velocity criteria. LEFT: Normal left internal carotid artery without atherosclerotic plaque or hemodynamically significant stenosis. Echocardiogram 07/30/2023 shows mildly increased left ventricular wall thickness. Ejection fraction 58%. Grade 1 diastolic dysfunction. Left atrium is mildly dilated. Moderate posterior mitral annular calcification. Trace mitral valve regurg. Trace tricuspid valve regurg. Specialists/[place] of Care: GI visit Q 6 months due for repeat EGD, will call to schedule MUD ENGINEER at [facility] last pap a few years ago, has Lichen sclerosis; has PRN clobetasol, uses for 1 week twice per day for infrequent flares. Last visit 2024, annual visits Optho - UTD on exams, cataract suspect, s/p cataract extraction bilat. . DM Eye exam 08/20/23 Negative for diabetic retinopathy, glaucoma suspect RTO [address] Reilly Breast Specialist @ [facility] + High risk breast specialists Dec 2024 next visit Derm Visual Acuity: Wears glasses, Snellen done today Hearing Screening: trouble hearing when background noise. Audiogram completed 2023. Does not currently wear hearing aides. ACP: MOLST and HCP complete no change Dietary/Nutrition/Exercise Edu provided: Y During the course of the visit the patient was educated and counseled about appropriate screening and preventative services. Patient instructions were provided to the patient in written or electronic format. I have reviewed and verified the above information. History of Present Illness The patient is a 69-year-old female presenting for an annual Medicare wellness visit. Obesity and diabetes: - The patient has a history of obesity w ith a BMI greater than 42. - Her weight has remained stable between 250 and 255 pounds for the last 10 years. - She previously underwent a sleeve santosh rectomy and has not returned to her highest weight, though she has regained some. - She reports eating healthily but somet imes consumes sweets. - Her exercise includes walking, and she is capable of walking a mile or more, though she finds motivation difficult. - Her A1c has remained stable at 6.6. - She considered injectable weight loss medications but decided against them after doing her own research. Cardiovascular and Metabolic Disease: - The patient has a history of hypertens ion, diastolic heart failure, coronary artery disease, and hyperlipidemia. - She is managed on simvastatin, hydroch lorothiazide, and losartan. - She is no longer experiencing swelling with losartan, which she attributes to elevating the head of her bed. - Her EKG a year ago showed a first-degr ee block, but the current EKG is normal. - Recent lab work showed improvement in her cholesterol levels. Visual Floaters: - The patient reports a new, intermitten t onset of seeing little black dots, like fruit flies, in both eyes over the last couple of months. - These floaters are not associated with headaches, vision loss, or visual field deficits. - She sees an seed collector, Dr. Gibbs on, every six months. Hearing Difficulty: - The patient reports difficulty hearing if she is not looking at the person speaking, or if there is background noise. - She had a hearing exam last year which was reportedly normal, and it was determined she would not benefit from hearing aids. Past Medical History - Gout, managed with allopurinol. - Anxiety and depression, managed with c italopram and bupropion. - Asthma, well-controlled with albuterol as needed, particularly during allergy season. - Coronary artery disease and hyperlipid emia, managed with simvastatin. - Hypertension and diastolic heart failu re, managed with hydrochlorothiazide and losartan. - Jacobs's esophagus, managed with lans oprazole and followed by a GI specialist. - Obesity with a BMI greater than 42. - Atypical ductal hyperplasia of the rig ht breast. - History of sinus scarring from adult s inus infections. - Urinary incontinence. Past Surgical History - Surgery for atypical ductal hyperplasi a of the right breast. - Sleeve gastrectomy. Family History - No changes in family medical history r eported. Social History - Exercise: The patient walks for exerci se and can easily walk a mile, but reports difficulty with motivation. - Nutrition: Reports eating a healthy di et but sometimes consumes sweets. - Weight Management: Her weight has been stable within a 5-pound range (250-255 lbs) for approximately the last 10 years. Health Maintenance - Patient will proceed with her schedule d mammogram next week; will obtain a copy of the report. - Patient has received her flu and COVID vaccines for the season. - Patient declined a bone density scan. - A refill for allopurinol 90-day supply was sent to the pharmacy. - Continue vitamin B12 supplementation. - Follow up in the office in 6 months wi th labs drawn beforehand. Review of Systems - General: Reports feeling pretty health y. - Eyes: Reports intermittent bilateral b lack dots (floaters) for a couple of months. Denies headaches, vision loss, or visual field deficits. - ENT: Reports difficulty hearing with b ackground noise or when not facing the speaker. Denies nasal congestion, but reports allergies. - Cardiovascular: Denies LE swelling on current medication regimen. Denies dizziness with postural changes. - Respiratory: Reports intermittent whee zing during allergy season, relieved by her inhaler. - GI: Reports normal bowel movements. - : Reports urinary incontinence, whic h is stable. Denies any new urinary symptoms. Physical Exam General: Well developed, well nourished, in no acute distress. Appears stated age. Head: Normocephalic, atraumatic. Eyes: Pupils are equal, round and reactive to light and accommodation. Conjunctivae are clear. Scleras nonicteric bilat. Vision grossly normal. Ears: TMs clear AU, EACS WNL. Nasal congestion noted, worse on the left side. Nose: Patent, without discharge. Some fluid noted, worse on the left side. Neck: Carotid bruit bilat Supple, no adenopathy or thyromegaly. Breast: Edu on SBE. History of atypical ductal hyperplasia of the right breast, post-surgery. Lungs: Clear to auscultation bilaterally. No rales, rhonchi or wheeze noted. Good air flow in all casper. Heart: Regular rate and rhythm. 2/6 systolic murmur, RSB,No click, rubs or gallops are noted. Abdomen: Bowel sounds present in all quadrants. The abdomen is soft, nontender, with no masses or organomegaly noted. No hernias are noted. Noted a red spot with crusting on the abdomen, recommended dermatology evaluation. : Deferred. Reviewed QUINN & recommendations for routine MUD ENGINEER. Pulses: Peripheral pulses are equal and palpable bilaterally. Extremities: No clubbing or cyanosis is noted. chronic vasc changes BLE, trace edema BLE Neurologic: Gait and station normal. Cranial Nerves 2-12 intact. Motor strength grossly symmetrical and intact. No sensory loss. Balance normal. Skin: No rashes, ulcers, or lesions noted. Turgor is good. Skin color is good. Hair and nails are without abnormalities On posterior back there is a raised thomas /dark brown scaled skin lesion approx 1.5 cm irregular borders. RLQ abd is a 2 mm red patch with raised rough edges Psych: Normal eye contact, affect and mood appropriate, and normal interactions. Patient is alert and appropriate to context. Cognitive screening completed successfully. Results - ECG: Normal, with resolution of the fi rst-degree block seen on last year's ECG. - Labs: HgbA1c is stable at 6.6. Kidney function is normal. Electrolytes are normal. Cholesterol has improved. Vitamin B12 level is up with supplementation. Vitamin D, folate, and thyroid levels are normal. - Urinalysis: Positive for trace leukocy te esterase and some external bacteria. Negative for nitrites and blood. The result did not reflex to a culture. Medical Decision Making The patient is a 69-year-old female here for a Medicare wellness visit with multiple stable chronic conditions. Her hypertension and diastolic heart failure are well-controlled on her current regimen of losartan and hydrochlorothiazide, with a blood pressure of 118/82 and resolution of a prior first-degree AV block on EKG. She now tolerates losartan without the previously reported edema. Her prediabetes is stable with an A1c of 6.6, and her hyperlipidemia has improved. We discussed weight management for her obesity, establishing a healthy and sustainable goal of a 12-pound weight loss over one year (5% of total body weight). I advised against rapid weight loss and injectable weight loss medications due to risks of yo-yo dieting, cost, and rebound weight gain. The patient's new-onset bilateral visual floaters are likely benign given the absence of vision loss or visual field defects, but ophthalmology follow-up is prudent to rule out retinal pathology. Her hearing difficulties seem related to background noise and may be exacerbated by fluid in her ears from allergies, as seen on exam; a prior normal audiogram suggests hearing aids would not be beneficial. A new crusted, red skin lesion on her abdomen requires dermatologic evaluation. All health maintenance is up to date or scheduled, except for a bone density scan, which the patient declined. A refill for allopurinol was sent. Plan is to follow up in 6 months with repeat labs. Plan 1. Obesity And diabetes - Set a mutual goal for a slow and stead y weight loss of 12 pounds in one year, which is approximately 1 pound per month. - Encourage increased physical activity, such as walking, and dietary modifications, including cutting down on sweets. - Advised against the use of injectable weight loss medications due to significant risks, cost, and the need for lifelong use. - Plan to recheck labs, including A1c, i n 6 months. 2. Hypertension And Diastolic Heart Fail ure - Continue current antihypertensive medi cations, including hydrochlorothiazide and losartan, as blood pressure is well-controlled. - Losartan will be removed from the nidhi ent's allergy list as she is tolerating it without adverse effects. 3. Suspicious Skin Lesion - Recommended the patient see a dermatol ogist to evaluate the red, crusted lesion on her abdomen. - Patient also plans to schedule a full- body skin check as previously recommended by dermatology. 4. Visual Floaters - Advised the patient to report the new onset of bilateral floaters to her seed collector, Dr. Reilly, at her upcoming appointment. - A request will be sent to the ophthalm ologist's office for the latest exam records. Patient Instructions - Your goal for weight loss is 12 pounds over the next year. Try to lose about one pound per month by walking more and cutting back on sweets. - Schedule an appointment with a dermato logist to have the new red spot on your stomach looked at. - When you see your eye doctor, be sure to tell them about the new black dots or floaters you have been seeing. - Continue taking all your current medic ations as prescribed. We have sent a new prescription for allopurinol to your pharmacy. - Continue taking your vitamin B12 suppl ement. - To help with hearing, try to speak wit h others [id number] and reduce background noises like a running sink. - Go for your mammogram as scheduled nex t week. - Schedule a follow-up appointment in 6 months. You will need to have lab work done before that visit. Consent Patient was informed and verbally consented to the use of an ambient scribe for clinic note documentation during this visit. An additional 30 minutes was spent addressing the problem(s) noted at todays visit. This includes time spent before the visit reviewing the chart, time spent during the visit, and time spent after the visit on documentation reviewing laboratory results, diagnostic imaging, medications, performing a medically necessary evaluation, counseling on diagnoses, care coordination, ordering appropriate tests, ordering appropriate medications, review of tests performed by other providers, reporting test results with the patient, communication with other healthcare providers. [facility] Medical History Diverticulosis Elevated cholesterol Arthritis Lichen sclerosus Neuropathy Anxiety Depression [place] (hard of hearing) Murmur First degree AV block HTN (hypertension) Gout Anxiety and depression Asthma Osteoarthritis Diet-controlled type 2 diabetes mellitus Surgical History History of esophagogastroduodenoscopy (EGD) Hx of colonoscopy History of knee replacement procedure of right knee History of knee replacement procedure of left knee History of gastric surgery History of cholecystectomy Family History Father Hypertension Colon cancer Prostate cancer Mother No problems noted. 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: No Hearing needs: No Vision needs: Yes (Jeremias) Questionnaire Medicare Wellness Checkup [age] What gender do you identify with?: female During the past 4 weeks, how much have you been bothered by emotional problems such as feeling anxious, depressed, irritable, sad or downhearted, and blue?: moderately During the past 4 weeks, has your physical & emotional health limited your social activities with family, friends, neighbors, or groups?: not at all During the past 4 weeks, how much bodily pain have you generally had?: no pain During the past 4 weeks, was someone available to help you if you needed & wanted help?: yes, as much as I wanted During the past 4 weeks, what was the hardest physical activity you could do for at least 2 minutes?: very heavy Can you get to places out of walking distance without help? (For eg., can you travel alone on buses, taxis or drive your car?): Yes Can you go shopping for groceries or clothes without someone's help?: Yes Can you prepare your own meals?: Yes Can you do your housework without help?: Yes Because of any health problems, do you need the help of another person with your personal care needs such as eating, bathing, dressing or getting around the house?: No Can you handle your own money without help?: Yes During the past 4 weeks, how would you rate your health in general?: very good During the past 4 weeks how have things been going for you?: pretty well Are you having difficulties driving your car?: not applicable, I don't use a car Do you always fasten your seat belt when you are in a car?: yes, usually During past 4 weeks, have you been bothered by the following: never: Falling or dizzy when standing up, Sexual problems?, Trouble eating well?, Teeth or denture problems?, Problems using the telephone? and Tiredness or fatigue? Have you fallen 2 or more times in the past year?: No Are you afraid of falling?: Yes Are you a smoker?: no During the past 4 weeks, how many drinks of wine, beer, or other alcoholic beverages did you have?: 2-5 drinks per week Do you exercise for about 20 minutes 3 or more times a week?: yes, some of the time Have you been given information to help with the following?: no: Hazards in your house that might hurt you? and no: Keeping track of your medications? How often do you have trouble taking medicines the way you have been told to take them?: I always take medicine as prescribed How confident are you that you can control & manage most of your health pr oblems?: very confident What is your race?: White Activity of Daily Living Bathing - sponge bath, tub bath or shower: receives no assistance (gets in/out by self, if usual bathing means Dressing - getting clothes from closets & drawers, including inner/outer garments & fasteners.: gets clothes & gets completely dressed without help Toileting - going to the 'toilet room' for urine/bowel elimination & cleaning self/arranging clothes: goes to toilet room, cleans self, arranges clothes without help Transfer: moves in & out of bed and chair without help (may use support object) Continence: controls urination/bowel movements completely by self Feeding: feeds self without help Total Score: 0 Information obtained from: patient Using telephone: independent Traveling: independent Shopping: independent Preparing meals: independent Housework: independent Taking medicine: independent Managing money: independent Physical Exam Vital Signs: Last Vital Signs Temp 98.1 F 03/26/25 12:13 Pulse 77 03/26/25 12:13 Resp 16 03/26/25 12:13 BP 116/82 03/26/25 12:13 Pulse Ox 94 03/26/25 12:13 Oxygen Delivery Method Room Air 03/26/25 12:13 BMI result Body Mass Index 42.3 Office Procedures Vision Screening Right Eye: 20/20 Left Eye: 20/20 Bilateral: 20/20 [id number] - Vision Screening EKG [id number], Complete Results Reviewed Results Reviewed: Laboratory 03/25/25 Result Units Range Interpretation Provider Comments Sodium Level 142 mmol/L (135-145) Potassium Level 4.4 mmol/L (3.3-5.1) Chloride Level 106 mmol/L (96-108) Carbon Dioxide Level 29 mmol/L (22-29) Anion Gap 11 (12-20) Low Blood Urea Nitrogen 11 mg/dL (9-16) Creatinine 0.90 mg/dL (0.5-1.4) Estimated Creatinine Clearance Calc Not Reportable Estimat Glomerular Filtration Rate > 60 Random Glucose 139 mg/dL (60-115) High Estimated Average Glucose 143 mg/dL Hemoglobin A1c Percent 6.6 % (<6.0) High Calcium Level 9.4 mg/dL (8.4-10.2) Total Bilirubin 0.5 mg/dL (0.0-1.0) Aspartate Amino Transf (AST/SGOT) 22 U/L (5-31) Alanine Aminotransferase (ALT/SGPT) 19 U/L (0-31) Alkaline Phosphatase 121 U/L (39-117) High Total Protein 6.8 g/dL (6.5-8.0) Albumin 4.2 g/dL (3.5-5.0) Triglycerides Level 96 mg/dL (<150) Cholesterol Level 171 mg/dL (<200) LDL Cholesterol, Calculated 84 mg/dL (<100) HDL Cholesterol 68 mg/dL (>40) Vitamin B12 Level 1423 pg/mL (200-900) High 25-Hydroxy Vitamin D Total 39.3 ng/mL (>30) Folate 13.7 ng/mL (> or = 4.0) Thyroid Stimulating Hormone (TSH) 2.06 uIU/mL (0.32-4.0) Urine Color Yellow Urine Appearance Clear Urine pH 7.0 (5.0-9.0) Urine Specific [place] 1.010 (1.005-1.025) Urine Protein Negative mg/dL (Neg-Trace) Urine Glucose (UA) Negative mg/dL (Negative) Urine Ketones Negative mg/dL (Negative) Urine Blood Negative (Negative) Urine Nitrite Negative (Negative) Urine Leukocyte Esterase Trace (Negative) High Urine RBC 0-2 /HPF (0-2) Urine WBC 0-5 /HPF (0-5) Urine Squamous Epithelial Cells 0-2 /HPF (0-2) Urine Bacteria None Seen (None Seen) Urine Hyaline Casts 0-2 /LPF (0-2) Urine Creatinine 52.37 mg/dL Urine Microalbumin < 5.0 mg/L Urine Microalbumin/Creatinine Ratio TNP Assessment & Plan Assessment & Plan (1) Encounter for subsequent annual wellness visit (AWV) in Medicare patient: Onset Date: ~03/26/25 Code(s): Z00.00 - Encounter for general adult medical examination without abnormal findings (2) ACP (advance care planning): Comment: MOLST completed . DNR/DNI. Allow natural . Has HCP. Code(s): Z71.89 - Other specified counseling (3) Hyperlipidemia associated with type 2 diabetes mellitus: Comment: LDL goal < 70 simvastatin 40mg QD Code(s): E11.69 - Type 2 diabetes mellitus with other specified complication; E78.5 - Hyperlipidemia, unspecified (4) Diabetes mellitus type 2 with complications: Comment: Diet controlled DME exam UTD Not on ACEI, on arb Code(s): E11.8 - Type 2 diabetes mellitus with unspecified complications (5) HTN (hypertension): Code(s): I10 - Essential (primary) hypertension Qualifiers: Hypertension type: primary hypertension Qualified Code(s): I10 - Essential (primary) hypertension (6) Asthma, mild intermittent, well-controlled: Code(s): J45.20 - Mild intermittent asthma, uncomplicated (7) Atypical pigmented skin lesion: Comment: abd referred to derm Code(s): L81.9 - Disorder of pigmentation, unspecified Plan . Orders: Orders AMB Vision Screening Today Z00.00 - Encounter for general adult medical examination without abnormal findings Lipid Panel 6 Months E11.69 - Type 2 diabetes mellitus with other specified complication, E11.8 - Type 2 diabetes mellitus with unspecified complications, E78.5 - Hyperlipidemia, unspecified, I10 - Essential (primary) hypertension Hemoglobin A1c Today E11.69 - Type 2 diabetes mellitus with other specified complication, E11.8 - Type 2 diabetes mellitus with unspecified complications, E78.5 - Hyperlipidemia, unspecified, I10 - Essential (primary) hypertension Comprehensive Met. Panel 6 Months E11.69 - Type 2 diabetes mellitus with other specified complication, E11.8 - Type 2 diabetes mellitus with unspecified complications, E78.5 - Hyperlipidemia, unspecified, I10 - Essential (primary) hypertension Medications: Refilled allopurinol 300 mg PO DAILY 90 tabs 2RF Patient Instructions: Health screenings for women You should visit your health care provider from time to time, even if you are healthy. The purpose of these visits is to: Screen for medical issues Assess your risk for future medical problems Encourage a healthy lifestyle Update vaccinations and other preventive care services Help you get to know your provider in case of an illness Information Even if you feel fine, you should still see your provider for regular checkups. These visits can help you avoid problems in the future. For example, the only way to find out if you have high blood pressure is to have it checked regularly. High blood sugar and high cholesterol levels also may not have any symptoms in the early stages. A simple blood test can check for these conditions. There are specific times when you should see your provider or receive specific health screenings. The [place] Preventive Services Task Force publishes a list of recommended screenings. Below are screening guidelines for women ages 18 to 39. BLOOD PRESSURE SCREENING Your blood pressure should be checked at least once every 3 to 5 years if: Your blood pressure is in the normal range (top number less than 120 mm Hg and bottom number less than 80 mm Hg) You don't have risk factors for high blood pressure Ask your provider if you need your blood pressure checked more often if: The top number is 120 to 129 mm Hg or the bottom number is 70 to 79 mm Hg You have diabetes, heart disease, kidney problems, are overweight, or have certain other health conditions You have a first-degree relative with high blood pressure You are Black You had high blood pressure during a If the top number is 130 mm Hg or greater or the bottom number is 80 mm Hg or greater, this is considered stage 1 hypertension. Schedule an appointment with your provider to learn how you can reduce your blood pressure. Watch for blood pressure screenings in your area. Ask your provider if you can stop in to have your blood pressure checked. BREAST CANCER SCREENING Experts do not agree about the benefits of breast self-exams in finding breast cancer or saving lives. Talk to your provider about what is best for you. A screening mammogram is not recommended for most women under age 40. Your provider may discuss and recommend mammograms, MRI scans, or ultrasounds if you have an increased risk for breast cancer, such as: A mother or sister who had breast cancer at a young age (most often starting screening earlier than the age the close relative was diagnosed) You carry a high-risk genetic marker CERVICAL CANCER SCREENING Cervical cancer screening should start at age 21 years unless your provider advises otherwise. After the first test: Women ages 21 through 29 should have a Pap test every 3 years. Exoprts do not agree on whether HPV testing is recommended for this age group. Women ages 30 through 65 should be screened with either a Pap test every 3 years or the HPV test every 5 years or both tests every 5 years (called cotesting ). Women who have been treated for precancer (cervical dysplasia) should continue to have Pap tests for 20 years after treatment or until age 65, whichever is longer. If you have had your uterus and cervix removed (total hysterectomy), and you have not been diagnosed with cervical cancer or precancer (high grade cervical neoplasia), you do not need cervical cancer screening. CHOLESTEROL SCREENING Cholesterol screening should begin at: Age 45 for women with no known risk factors for coronary heart disease Age 20 for women with known risk factors for coronary heart disease Repeat cholesterol screening should take place: Every 5 years for women with normal cholesterol levels More often if changes occur in lifestyle (including weight gain and diet) More often if you have diabetes, heart disease, kidney problems, or certain other conditions DIABETES SCREENING You should be screened for diabetes starting at age 35 and then repeated every 3 years if you have no risk factors for diabetes. Screening may need to start earlier and be repeated more often if you have other risk factors for diabetes, such as: You have a first degree relative with diabetes. You are overweight or have obesity. You have high blood pressure, prediabetes, or a history of heart disease. Screening for diabetes should be done if you are planning to become and you are overweight and have other risk factors such as high blood pressure. DENTAL EXAM Go to the dentist once or twice every year for an exam and cleaning. Your dentist will evaluate if you need more frequent visits. EYE EXAM Have an eye exam every 5 to 10 years before age 40. If you have vision problems, have an eye exam every 2 years or more often if r ecommended by your provider. You should have an eye exam that includes an examination of your retina (back of your eye) at least every year if you have diabetes. IMMUNIZATIONS Commonly needed vaccines include: Flu shot: get one every year. COVID-19 vaccine: ask your provider what is best for you. Tetanus-diphtheria and acellular pertussis (Tdap) vaccine: have one at or after age 19 as one of your tetanus-diphtheria vaccines if you did not receive it as an adolescent. Tetanus-diphtheria: have a booster (or Tdap) every 10 years. Varicella vaccine: receive 2 doses if you never had chickenpox or the varicella vaccine. Hepatitis B vaccine: receive 2, 3, or 4 doses, depending on your exact circumstances. Measles, mumps, and rubella (MMR) vaccine: receive 1 to 2 doses if you are not already immune to MMR. Your provider can tell you if you are immune. Ask your provider about the human papillomavirus (HPV) vaccine if: You have not received the HPV vaccine in the past You have not completed the full vaccine series (you should catch up on this shot) Ask your provider if you should receive other immunizations if you have certain health problems that increase your risk for some diseases such as pneumonia. INFECTIOUS DISEASE SCREENING Women who are sexually active should be screened for chlamydia and gonorrhea up until age 25. Women 25 years and older should be screened for chlamydia and gonorrhea if at high risk. Screening for hepatitis C: All adults ages 18 to 79 should get a one-time test for hepatitis C. people should be screened at every . Screening for human immunodeficiency virus (HIV): All people ages 15 to 65 should get a one-time test for HIV. Depending on your lifestyle and medical history, you may also need to be screened for infections such as syphilis and HIV, as well as other infections. PHYSICAL EXAM All adults should visit their provider from time to time, even if they are healthy. The purpose of these visits is to: Screen for disease Assess your risk of future medical problems Encourage a healthy lifestyle Update your vaccinations and other preventive care services Maintain a relationship with a provider in case of an illness Your height, weight, and BMI should be checked at every exam. During your exam, your provider may ask you about: Depression and anxiety Diet and exercise Alcohol and tobacco use Safety issues, such as using seat belts, smoke detectors, and intimate partner violence Your medicines and risk for interactions SKIN SELF-EXAM Your provider may check your skin for signs of skin cancer, especially if you're at high risk, such as if you: Have had skin cancer before Have close relatives with skin cancer Have a weakened immune system OTHER SCREENING Talk with your provider about colon cancer screening if you have a strong family history of colon cancer or polyps, or if you have had inflammatory bowel disease or polyps yourself. Routine bone density screening of women under 40 is not recommended. Quality Reporting (2020) Adult ([facility] 138/2/22/69) Smoking risk assessment performed?: Yes Patient Tobacco Use Status: Former Tobacco user Depression screening performed: Yes Screen Results: Yes Negative screen Recommended changes: lifestyle Systolic BP not done?: No Diastolic BP not done?: No BMI screening not done: No BMI High - Follow Up: Yes High-plan Sexual Activity Screening ([facility] 153) Sexually active?: Yes Immunizations ([facility] 147, 117) Annual Influenza Vaccine: Yes Measles Antibody Test: No Mumps Antibody Test: No Rubella Antibody Test: No Varicella Antibody Test: No Anti Hepatitis A IgG Antigen test: No Anti Hepatitis B Virus Surface Ab test: No Fall Risk Screening ([facility] 139) Last assessed Fall Risk: 03/26/25 Fall risk assessment: No Falls in past year (Mechanical falls 2+ in 1 year, stopped taking benadryl and now moving slower. No fall since August 2023. 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
[2025-03-26 12:13] VITALS: BP 116/82; PULSE 77; RESP 16; TEMP 36.7; O2SAT 94; BMI 42.3
--- OUTSIDE RECORDS SUMMARY | 2025-03-26 13:39 | XMS_ITS | Encounter Summary ---
Author Organization [facility] Address [address] [place] [address] [place] [phone] Phone Care Team Providers Care Personnel Technician Name Role Phone Carlos Osuna MD Primary Care Provider [phone] Reason for Referral * Physical Therapy (Elective) - Closed Specialty Diagnoses / Procedures Referred By Brian shaikh Referred To Contact Physical Therapy Diagnoses Osteoarthritis of both knees, unspecified osteoarthritis type System, Provider Not In, [facility] [id number] [place] [address] Physical Therapy [address] [place] [address] Phone: tel: fax: Referral ID Status Reason Start Date Expiration Date Visits Re quested Visits Authorized [id number] Closed 08/01/2017 05/26/2018 17 17 Encounter Details Date Type Department Care Team (Latest Contact Info) Description 08/01/2017 Transcribe Orders [facility] Physical Therapy [address] [place] [address] Piter Cruz PA [address] [place] [id number] [email or web address] Osteoarthritis of both knees, unspecified osteoarthritis type [...] Primary documented in this encounter Care Teams Personnel Technician Relationship Specialty Start Date End Date Carlos Osuna MD [address] [place] [address] PCP - General Internal Medicine 05/13/17 documented as of this encounter Additional Source Comments The information contained in this document represents components of the legal health record. It is not the complete legal health record.[facility]
--- OUTSIDE RECORDS SUMMARY | 2025-03-26 13:39 | XMS_ITS | Clinical Summary ---
Author Organization [facility] Address [email or web address] [place] [phone] Phone Care Team Providers Care Outsole Molder Name Role Phone Carlos Osuna MD Primary Care Provider [phone] Allergies Active Allergy Reactions Criticality Noted Date [...] this topic Medical Devices Implanted Type Area Procurement Clerk Device Identifier Shelf Expiration Date Model / Serial / Lot Iol Softport Ao [id number] 20.5d-07/18/2017 Implanted:2017 (Quantity not on file) MEDLINE Iol Softport Ao [id number] 19.0d-08/15/2017 Implanted:2017 (Quantity not on file) MEDLINE [facility] [address] [place], [place] [address]O [address] [facility] [address] [place] [place] [address] [address] [place], [place] [address] [place], [place] [address] [place], [place] [id number] Care Teams Outsole Molder Relationship Specialty Start Date End Date Carlos Osuna MD [address] [place] [address] PCP - General Internal Medicine 05/13/17 Additional Source Comments The information contained in this document represents components of the legal health record. It is not the complete legal health record.[facility]
== END 2025-03-26 12:55 | disposition home or self-care (01) ==
LOC: HO.HMCFM 12:06
PROVIDERS: PCP Nurse Practitioner Family; Visit Provider Nurse Practitioner Family
DX: Z00.00 Encounter for general adult medical examination without abnormal findings (principal); E66.01 Morbid (severe) obesity due to excess calories; Z68.41 Body mass index [BMI] 40.0-44.9, adult; E11.69 Type 2 diabetes mellitus with other specified complication; I10 Essential (primary) hypertension; E78.5 Hyperlipidemia, unspecified; J45.20 Mild intermittent asthma, uncomplicated; L81.9 Disorder of pigmentation, unspecified; Z01.00 Encounter for examination of eyes and vision without abnormal findings

== ENCOUNTER → 2025-03-26 12:05 | Outpatient (BNVA) | payer MEDICARE, SELFPAY | PROVIDERS: PCP Nurse Practitioner Family; Visit Provider Nurse Practitioner Family | DX: Z71.89 Other specified counseling (principal); E11.8 Type 2 diabetes mellitus with unspecified complications; I10 Essential (primary) hypertension; J45.20 Mild intermittent asthma, uncomplicated | CPT/HCPCS: 99212; 99497 ==